=== PATIENT | female | born 1960 | race Caucasian/White ===

== ENCOUNTER → 2018-06-02 10:12 | Outpatient (CLI) | payer OTHER, SELFPAY ==
--- NOTE | 2018-06-02 10:15 | BI_ITS ---
MAMMOGRAPHY - BILATERAL SCREENING REASON FOR EXAM: Female, 57 years old. Routine annual screening examination. PERTINENT HISTORY: Non-contributory. TECHNIQUE: Digital bilateral breast ruba (3D mammographic acquisition) in the CC and MLO projections. 2-D mediolateral oblique (MLO) and craniocaudad (CC) views of both breasts were obtained. CAD: Full Field Digital Mammography with Computer Added Detection was performed. COMPARISON: Comparison is made with prior outside examination dated July 11, 2013. FINDINGS: Breast Composition: The breasts are heterogeneously dense, which may obscure small masses. There are no dominant masses or suspicious calcifications. Stable bilateral axillary lymph nodes. No other significant abnormalities are identified. There has been no significant change since the prior study. BI/SCREENING MAMM (CAD), BILAT IMPRESSION: Stable bilateral screening mammogram. Yearly follow-up mammogram recommended. (A) ASSESSMENT CATEGORY: BIRADS Category 2: Benign. A letter regarding these results will be sent to the patient by the facility within 30 days. Approximately 10% of breast cancers are not detected by mammography. A normal mammogram should not delay biopsy of a clinically suspicious abnormality. [id number] Electronically Signed: Jose Guadalupe Beach MD at 12:31 EST , Service support ,
== END ==
PROVIDERS: Family Provider Family Medicine; PCP Family Medicine; Referring Provider Obstetrics & Gynecology; Visit Provider Obstetrics & Gynecology
DX: Z12.31 Encounter for screening mammogram for malignant neoplasm of breast (principal)
CPT/HCPCS: 77063; 77067

== ENCOUNTER 2020-07-13 14:39 | Outpatient (RCR) | payer OTHER, SELFPAY | END 2020-09-25 23:59 | LOC: IMMUN 14:39 | PROVIDERS: PCP Family Medicine; Visit Provider Family Medicine | DX: Z23 Encounter for immunization (principal) | CPT/HCPCS: 0001A; 0002A; 91300 ==

== ENCOUNTER → 2021-04-03 | Outpatient (CLI) | payer OTHER, SELFPAY ==
[2021-04-09 13:19] LABS: HPV APTIMA, High Risk Negative (Negative)
== END | disposition home or self-care (01) ==
LOC: LABSPEC 15:26
PROVIDERS: PCP Family Medicine; Visit Provider Nurse Practitioner Women's Health
DX: Z78.0 Asymptomatic menopausal state (principal)
CPT/HCPCS: 87624; 88175; G0145

== ENCOUNTER → 2021-04-17 13:52 | Outpatient (CLI) | payer OTHER, SELFPAY ==
--- NOTE | 2021-04-17 13:54 | BI_ITS ---
MAMMOGRAPHY - BILATERAL SCREENING 3-D TOMOSYNTHESIS REASON FOR EXAM: Female, 60 years old. screening for breast cancer PERTINENT HISTORY: No significant family history. TECHNIQUE: 2-D mammograms and 3-D Tomosynthesis of the breast (s) were performed. CAD was performed. COMPARISON: 06/02/2018 FINDINGS: The breast composition is heterogeneously dense that can obscure small breast masses. Scattered benign calcifications are seen. No dense spiculated masses or suspicious microcalcifications are identified. No architectural distortion is identified. There is no skin thickening or retraction. There has been no significant change since the prior study. BI/SCRN MAMM (CAD)W/JAVIER BILAT IMPRESSION: No mammographic signs of malignancy. Routine yearly mammograms recommended. ASSESSMENT CATEGORY: BIRADS Category 1: Negative. A letter regarding these results will be sent to the patient by the facility within 30 days. FOLLOW UP RECOMMENDATION: Yearly follow up mammogram recommended. (A) Approximately 10% of breast cancers are not detected by mammography. A normal mammogram should not delay biopsy of a clinically suspicious abnormality. Electronically Signed: Lizandro Mccall MD at 14:44 EST Tel , Service support ,
== END ==
PROVIDERS: PCP Family Medicine; Referring Provider Nurse Practitioner Women's Health; Visit Provider Nurse Practitioner Women's Health
DX: Z12.31 Encounter for screening mammogram for malignant neoplasm of breast (principal)
CPT/HCPCS: 77063; 77067

== ENCOUNTER → 2021-08-19 | Outpatient (CLI) | payer OTHER, SELFPAY | END | disposition home or self-care (01) | LOC: LABSPEC 08-20 10:32 | PROVIDERS: PCP Family Medicine; Visit Provider Nurse Practitioner Women's Health | DX: N76.0 Acute vaginitis (principal) | CPT/HCPCS: 87070; 87205 ==

== ENCOUNTER → 2022-04-18 | Outpatient (CLI) | payer OTHER, SELFPAY ==
--- NOTE | 2022-04-18 10:52 | BI_ITS ---
MAMMOGRAPHY - BILATERAL SCREENING REASON FOR EXAM: Female, 61 years old. Routine annual screening examination. PERTINENT HISTORY: Non-contributory. TECHNIQUE: Digital bilateral breast javier (3D mammographic acquisition) in the CC and MLO projections. 2-D mediolateral oblique (MLO) and craniocaudad (CC) views of both breasts were obtained. CAD: Full Field Digital Mammography with Computer Added Detection was performed. COMPARISON: Comparison is made with prior study dated 04/17/2021 and 06/02/2018. FINDINGS: Breast Composition: The breasts are heterogeneously dense, which may obscure small masses. There are no dominant masses or suspicious calcifications. Stable small benign-appearing bilateral axillary lymph nodes. No other significant abnormalities are identified. There has been no significant change since the prior study. BI/SCRN MAMM (CAD)W/JAVIER BILAT IMPRESSION: Stable bilateral screening mammogram. Yearly follow-up mammogram recommended. (A) ASSESSMENT CATEGORY: BIRADS Category 2: Benign. A letter regarding these results will be sent to the patient by the facility within 30 days. Approximately 10% of breast cancers are not detected by mammography. A normal mammogram should not delay biopsy of a clinically suspicious abnormality. [id number] Electronically Signed: Jose Guadalupe Beach MD at 11:07 EST ,
== END | disposition home or self-care (01) ==
LOC: OPBI 10:51
PROVIDERS: PCP Family Medicine; Visit Provider Nurse Practitioner Women's Health
DX: Z12.31 Encounter for screening mammogram for malignant neoplasm of breast (principal)
CPT/HCPCS: 77063; 77067

== ENCOUNTER → 2024-10-26 | Outpatient (CLI) | payer OTHER, SELFPAY ==
--- NOTE | 2024-10-26 12:30 | BI_ITS ---
EXAM: SCRN MAMM (CAD)W/JAVIER BILAT DATE: 10/26/2024 CLINICAL HISTORY: F, Age 64 y/o , SCREENING FOR BREAST CANCER TECHNIQUE: SCRN MAMM (CAD)W/JAVIER BILAT COMPARISON: Prior exam(s) dated 03/22/2022, 04/17/2021, 06/02/2018. FINDINGS: TISSUE DENSITY: The breasts are heterogeneously dense, which may obscure small masses. The mammogram demonstrates that the patient has dense breasts. Supplemental screening with whole breast ultrasound or MRI may be considered for further evaluation. Bilateral Breast Mammographic Findings: Right breast: There is an asymmetry in the superior right breast at middle depth visualized on the MLO view. No significant masses, calcifications or other abnormalities are identified in the left breast. BI/SCRN MAMM (CAD)W/JAVIER BILAT IMPRESSION: The asymmetry in the superior right breast at middle depth requires further hallie luation. Recommend diagnostic mammogram of the right breast and ultrasound on the day of diagnostic if indicated. OVERALL FINAL ASSESSMENT BI-RADS 0: INCOMPLETE - NEED ADDITIONAL IMAGING EVALUATION. RECOMMENDATION: Additional Views obtained/call backs A letter with findings and recommendations will be mailed to the patient. Reading Location: [id number]
== END | disposition home or self-care (01) ==
PROVIDERS: PCP Family Medicine; Referring Provider Nurse Practitioner Women's Health; Visit Provider Nurse Practitioner Women's Health
DX: Z12.31 Encounter for screening mammogram for malignant neoplasm of breast (principal)
CPT/HCPCS: 77063; 77067

== ENCOUNTER → 2024-11-02 | Outpatient (CLI) | payer OTHER, SELFPAY ==
--- NOTE | 2024-11-02 08:55 | BI_ITS ---
PROCEDURE: BREAST LIMITED UNILATERAL; RT BRST UNILAT JAVIER ADD-ON; DIAG MAMM W/CAD, UNILAT 11/02/2024 REASON FOR EXAM: 64-year-old female presents for finding in the right breast seen on the examination of 10/26/2024. No family history of breast cancer. COMPARISON: 10/26/2024, 03/22/2022, 04/18/2021. TECHNIQUE: BREAST LIMITED UNILATERAL; RT BRST UNILAT JAVIER ADD-ON; DIAG MAMM W/CAD, UNILAT FINDINGS: MAMMOGRAM: TISSUE DENSITY: The breasts are heterogeneously dense, which may obscure small masses. Follow-up examination performed for the asymmetry in the right breast seen on examination of 10/26/2024. On the present examination, the asymmetry in the superior right breast at middle depth partially effaces. ULTRASOUND: Ultrasound performed of the superior right breast. There is a cyst cluster in the right breast at 11:30- 12 o'clock, 5 cm from the nipple measuring 0.7 x 0.7 x 0.4 cm. This is a probable correlate for the mammographic finding. BI/DIAG MAMM W/CAD, UNILAT IMPRESSION: Right breast cyst cluster is probably benign. Recommend short interval six-mon th follow-up diagnostic ultrasound of the right breast. BI-RADS 3: PROBABLY BENIGN. RECOMMENDATION: 6 Month Follow-up Reading Location: [id number]
--- NOTE | 2024-11-02 08:55 | BI_ITS ---
PROCEDURE: BREAST LIMITED UNILATERAL; RT BRST UNILAT JAVIER ADD-ON; DIAG MAMM W/CAD, UNILAT 11/02/2024 REASON FOR EXAM: 64-year-old female presents for finding in the right breast seen on the examination of 10/26/2024. No family history of breast cancer. COMPARISON: 10/26/2024, 03/22/2022, 04/18/2021. TECHNIQUE: BREAST LIMITED UNILATERAL; RT BRST UNILAT JAVIER ADD-ON; DIAG MAMM W/CAD, UNILAT FINDINGS: MAMMOGRAM: TISSUE DENSITY: The breasts are heterogeneously dense, which may obscure small masses. Follow-up examination performed for the asymmetry in the right breast seen on examination of 10/26/2024. On the present examination, the asymmetry in the superior right breast at middle depth partially effaces. ULTRASOUND: Ultrasound performed of the superior right breast. There is a cyst cluster in the right breast at 11:30- 12 o'clock, 5 cm from the nipple measuring 0.7 x 0.7 x 0.4 cm. This is a probable correlate for the mammographic finding. BI/DIAG MAMM W/CAD, UNILAT IMPRESSION: Right breast cyst cluster is probably benign. Recommend short interval six-mon th follow-up diagnostic ultrasound of the right breast. BI-RADS 3: PROBABLY BENIGN. RECOMMENDATION: 6 Month Follow-up Reading Location: [id number]
--- NOTE | 2024-11-02 08:55 | BI_ITS ---
PROCEDURE: BREAST LIMITED UNILATERAL; RT BRST UNILAT JAVIER ADD-ON; DIAG MAMM W/CAD, UNILAT 11/02/2024 REASON FOR EXAM: 64-year-old female presents for finding in the right breast seen on the examination of 10/26/2024. No family history of breast cancer. COMPARISON: 10/26/2024, 03/22/2022, 04/18/2021. TECHNIQUE: BREAST LIMITED UNILATERAL; RT BRST UNILAT JAVIER ADD-ON; DIAG MAMM W/CAD, UNILAT FINDINGS: MAMMOGRAM: TISSUE DENSITY: The breasts are heterogeneously dense, which may obscure small masses. Follow-up examination performed for the asymmetry in the right breast seen on examination of 10/26/2024. On the present examination, the asymmetry in the superior right breast at middle depth partially effaces. ULTRASOUND: Ultrasound performed of the superior right breast. There is a cyst cluster in the right breast at 11:30- 12 o'clock, 5 cm from the nipple measuring 0.7 x 0.7 x 0.4 cm. This is a probable correlate for the mammographic finding. BI/Rt Brst Unilat Javier Add-On IMPRESSION: Right breast cyst cluster is probably benign. Recommend short interval six-mon th follow-up diagnostic ultrasound of the right breast. BI-RADS 3: PROBABLY BENIGN. RECOMMENDATION: 6 Month Follow-up Reading Location: [id number]
--- NOTE | 2024-11-02 08:55 | BI_ITS ---
PROCEDURE: BREAST LIMITED UNILATERAL; RT BRST UNILAT JAVIER ADD-ON; DIAG MAMM W/CAD, UNILAT 11/02/2024 REASON FOR EXAM: 64-year-old female presents for finding in the right breast seen on the examination of 10/26/2024. No family history of breast cancer. COMPARISON: 10/26/2024, 03/22/2022, 04/18/2021. TECHNIQUE: BREAST LIMITED UNILATERAL; RT BRST UNILAT JAVIER ADD-ON; DIAG MAMM W/CAD, UNILAT FINDINGS: MAMMOGRAM: TISSUE DENSITY: The breasts are heterogeneously dense, which may obscure small masses. Follow-up examination performed for the asymmetry in the right breast seen on examination of 10/26/2024. On the present examination, the asymmetry in the superior right breast at middle depth partially effaces. ULTRASOUND: Ultrasound performed of the superior right breast. There is a cyst cluster in the right breast at 11:30- 12 o'clock, 5 cm from the nipple measuring 0.7 x 0.7 x 0.4 cm. This is a probable correlate for the mammographic finding. BI/Rt Brst Unilat Javier Add-On IMPRESSION: Right breast cyst cluster is probably benign. Recommend short interval six-mon th follow-up diagnostic ultrasound of the right breast. BI-RADS 3: PROBABLY BENIGN. RECOMMENDATION: 6 Month Follow-up Reading Location: [id number]
--- OUTSIDE RECORDS SUMMARY | 2024-11-02 10:01 | XMS RPT_ITS | CCD ---
Author Organization [facility] Care Team Providers Care Assistant Merchandiser Name Role Phone Dossi Treasure THORPE Unavailable Dr. Caridad Edmondson Primary Care Provider [phone] Dr. Caridad Edmondson Referring Provider [phone] Donnellson CEO AND CO FOUNDER, CEO AND [employer] FOUNDER-C Cehl Attending Provider Caridad Edmondson DO Primary Care Provider [phone] Caridad Edmondson DO Primary Care Provider Dr. Caridad Edmondson Primary Care Provider Dr. Caridad Edmondson Referring Provider Donnellson CEO AND CO FOUNDER, CEO AND [employer] FOUNDER-C Chel Attending Provider [phone] Caridad Edmondson DO Primary Care Provider [phone] JUAN ROMERO Attending Unavailable CARIDAD EDMONDSON Primary Care Unavailable Dr. Caridad Edmondson DO Primary Care Provider Dr. Caridad Edmondson DO Referring Provider Donnellson CEO AND [employer] FOUNDER-C, Chel Attending Provider [phone] Donnellson CEO AND CO FOUNDER, Chel Attending Unavailable Malarielle Caridad Referring Unavailable Malarielle Caridad Primary Care Unavailable Erick CEO AND CO FOUNDER, Chel Referring Unavailable Erick CEO AND CO FOUNDER, Chel Attending Unavailable Malys, Caridad Primary Care Unavailable Donnellson CEO AND CO FOUNDER, Chel Attending Unavailable Malarielle, Caridad Primary Care Unavailable Donnellson CEO AND CO FOUNDER, Chel Referring Unavailable Erick CEO AND CO FOUNDER-C, Chel Referring Provider Allergies Allergy Classification Reported Allergen(s) Allergy Type Date of Onset Reaction(s) Facility (6 sources) Dust; Translations: [DUST] allergy to substance [facility] Work Phone: Medications Current Medications Medication Drug Class(es) Dates Sig (Normalized) Sig (Original) atogepant (QULIPTA) 60 mg tablet (4 sources) Start: 11-17-2022 End: 02-15-2023 take 1 tablet by mouth once daily atogepant (QULIPTA) 60 mg tablet Take 1 tablet (60 mg) by mouth once daily. 30 tablet 2 11/17/2022 02/15/2023 Active Start: 09-10-2022 End: 11-16-2022 take 1 tablet by mouth once daily atogepant (QULIPTA) 60 mg tablet Take 1 tablet (60 mg) by mouth once daily. 30 tablet 2 09/10/2022 11/16/2022 Discontinued Start: 09-10-2022 End: 12-09-2022 take 1 tablet by mouth once daily atogepant (QULIPTA) 60 mg tablet Take 1 tablet (60 mg) by mouth once daily. 30 tablet 2 09/10/2022 12/09/2022 Active Comment on above: Take 1 tablet (60 mg ) by mouth once daily. eletripton (4 sources) Start: 04-03-2021 eletripton Active PO April 03, 2021 2:05pm Start: 04-03-2021 eletripton Act pamela PO 0 April 03, 2021 1:00am Start: 04-03-2021 eletripton Act pamela PO April 03, 2021 1:00am Start: 04-03-2021 eletripton Act pamela PO April 03, 2021 12:00am Iodine (2 sources) Start: 10-13-2024 Iodine (Gaurav dumas (Iodine)) 151 mcg capsule Active ug PO October 13, 2024 12:00am Lactobacillus Combination No.9 (Adult 50 Plus Probiotic) 4 billion cell capsule (2 sources) Start: 10-13-2024 take 4 capsules by mouth once daily Lactobacillus Combination No.9 (Adult 50 Plus Probiotic) 4 billion cell capsule Active 4000 NMA PO daily October 13, 2024 12:00am administer with a meal progesterone 200 mg oral capsule (2 sources) Progesterone Start: 10-13-2024 take 1 capsule by mouth at bedtime Progesterone Micronized 200 mg capsule Active 200 mg PO AT BEDTIME October 13, 2024 12:00am Completed/Discontinued Medications Medication Drug Class(es) Dates Sig (Normalized) Sig (Original) ASPIRIN-ACETAMINO PHEN-CAFFEINE (12 sources) Nonsteroidal Anti-inflammatory Drug, Central Nervous System Stimulant, Methylxanthine Start: 07-17-2014 take 2 tablets by mouth once daily for headache EXCEDRIN MIGRAINE 250-250-65 MG TABS Two tablets by mouth daily for headaches ASPIRIN-ACETAMINO PHEN-CAFFEINE [id number] Annika Christie LPN Start: 07-17-2014 take 2 tablets by mo ut once daily for headache EXCEDRIN MIGRAINE 250-250-65 MG TABS Two tablets by mouth daily for headaches [id number] Annika Christie LPN Start: 07-17-2014 take 2 tablets by mo ut once daily for headache EXCEDRIN MIGRAINE 250-250-65 MG TABS Two tablets by mouth daily for headaches [id number] Caridad Edmondson DO amoxicillin 875 mg / clavulanate 125 mg oral tablet (12 sources) Penicillin-class Antibacterial Start: 07-28-2014 End: 03-13-2015 take 1 tablet by mouth twice daily AMOXICILLIN-POT CLAVULANATE 875-125 MG TABS 1 po Twice daily x 7 days AMOXICILLIN-POT CLAVULANATE [id number] Caridad Edmondson DO atenolol 25 mg oral tablet (12 sources) beta-Adrenergic Leno Start: 06-20-2015 End: 09-23-2016 take 1 tablet by mouth once daily at bedtime ATENOLOL 25 MG TABS 1 po daily at bedtime ATENOLOL [id number] Treasure Mendoza DC 24 hr buPROPion hydrochloride 300 mg extended release oral tablet (9 sources) Aminoketone Start: 04-03-2021 End: 10-13-2024 take 1 tablet by mouth once daily in the morning Bupropion Hcl 300 mg tablet extended release 24 hr Discontinued 300 mg PO EVERY MORNING April 03, 2021 1:00am October 13, 2024 3:16pm Start: 05-02-2019 buPROPion XL ( WELLBUTRIN XL) 300 mg 24 hr tablet codeine phosphate 2 mg/ml / promethazine hydrochloride 1.25 mg/ml oral solution (12 sources) Opioid Agonist, Phenothiazine Start: 07-28-2014 End: 03-13-2015 take 5 mL by mouth every six hours as needed for cough PROMETHAZINE-CODEINE 6.25-10 MG/5ML SYRP 5 ml po every 6 hours as needed for cough PROMETHAZINE-CODEINE [id number] Caridad Edmondson DO eletriptan 40 mg oral tablet (7 sources) Serotonin-1b and Serotonin-1d Receptor Agonist Start: 09-10-2022 End: 11-12-2022 eletriptan (RELPAX) 40 mg tablet Take 1 tablet by mouth as needed (for migraine headache). take 1 at onset of migraine, may repeat in 2 hours if necessary. No more than 2 pills in 24 hours or 2 days/week 9 tablet 11 11/12/2022 Active Start: 07-17-2020 End: 08-29-2021 eletriptan (RELPAX) 40 mg ta blet Take 1 tablet by mouth as needed (for migraine headache). take 1 at onset of migraine, may repeat in 2 hours if necessary. No more than 2 pills in 24 hours or 2 days/week 9 tablet 11 08/29/2021 Active Comment on above: Take 1 tablet by buddy as needed (for migraine headache). take 1 at onset of migraine, may repeat in 2 hours if necessary. No more than 2 pills in 24 hours or 2 days/week estradiol 0.01 mg vaginal insert (11 sources) Estrogen Start: 04-09-2022 End: 10-13-2024 Estradiol (Yuvafem) 10 mcg tablet Discontinued 10 ug VAGINAL .COMPLEX 28 14 April 09, 2022 1:00am October 13, 2024 3:16pm 10 mcg vaginally daily X 2 weeks then 3 times per week; Start: 04-09-2022 Estradiol (Yuv afem) 10 mcg tablet Active 10 MCG VAGINAL .COMPLEX 28 April 09, 2022 12:00am 10 mcg vaginally daily X 2 weeks then 3 times per week; Start: 08-19-2021 End: 10-13-2024 Estradiol 0.01 % (0.1 mg/gra m) cream Discontinued 0 VAGINAL .COMPLEX August 19, 2021 12:00am October 13, 2024 8:10am small amount 2 times per week vaginal; Start: 08-19-2021 Estradiol Acti ve 0 VAGINAL .COMPLEX August 19, 2021 9:32am small amount 2 times per week vaginal; Start: 04-03-2021 End: 08-19-2021 Estradiol 0.01 % (0.1 mg/gra m) cream Discontinued 0 VAGINAL .COMPLEX 42.5 2 April 03, 2021 1:00am August 19, 2021 9:07am small amount as directed vaginal every other day X 4 weeks then twice a week; Start: 04-03-2021 End: 08-19-2021 Estradiol Discontinued 0 VAG INAL .COMPLEX 42.5 April 03, 2021 2:23pm August 19, 2021 9:07am small amount as directed vaginal every other day X 4 weeks then twice a week; fluticasone propionate 0.05 mg/actuat metered dose nasal spray (12 sources) Corticosteroid Start: 07-28-2014 End: 03-13-2015 take 2 spray(s) nasal route once daily FLUTICASONE PROPIONATE 50 MCG/ACT SUSP 2 sprays each nostril daily FLUTICASONE PROPIONATE [id number] Caridad Edmondson DO 1.5 ml fremanezumab-vfrm 150 mg/ml auto-injector (4 sources) Start: 04-03-2021 End: 08-19-2021 Fremanezumab-Vfrm (Ajovy Autoinjector) 225 mg/1.5 mL auto-injector Discontinued 225 mg SC EVERY MONTH April 03, 2021 1:00am August 19, 2021 9:07am indomethacin 50 mg oral capsule (12 sources) Nonsteroidal Anti-inflammatory Drug Start: 05-30-2015 End: 06-20-2015 take 1 capsule by mouth three times daily INDOMETHACIN 50 MG CAPS 1 po TID INDOMETHACIN [id number] Caridad Edmondson DO lisinopril 10 mg oral tablet (18 sources) Angiotensin Converting Enzyme Inhibitor Start: 03-20-2015 End: 05-04-2015 take 1 tablet by mouth once daily LISINOPRIL 10 MG TABS 1 po daily LISINOPRIL [id number] Caridad Edmondson DO magnesium oxide 500 mg oral tablet (9 sources) Start: 04-03-2021 End: 10-13-2024 take 1 tablet by mouth once daily Magnesium Oxide 500 mg tablet Discontinued 500 mg PO DAILY April 03, 2021 1:00am October 13, 2024 3:16pm Start: 10-31-2020 take 1 tablet by buddy th once daily magnesium oxide (MAG-OX) 400 mg (241.3 mg magnesium) tablet Take 1 tablet by mouth once daily. 30 tablet 5 10/31/2020 Active Comment on above: Take 1 tablet by buddy th once daily. naproxen 500 mg oral tablet (14 sources) Nonsteroidal Anti-inflammatory Drug Start: 12-30-2021 naproxen (NAPROSYN) 500 mg tablet take 1 tablet by mouth two to three times a day if needed for headache - MAX OF 10 DAYS PER MONTH 30 tablet 1 12/30/2021 Active Start: 10-31-2021 End: 12-30-2021 naproxen (NAPROSYN) 500 mg t ablet Take one(1) tablet two(2) times daily or TID prn headache MAx 10 days a month 30 tablet 1 10/31/2021 12/30/2021 Discontinued Start: 04-03-2021 End: 10-13-2024 take 1 tablet by mouth twice daily as needed Naproxen 500 mg tablet Discontinued 500 mg PO TWICE A DAY as needed August 19, 2021 9:07am October 13, 2024 3:16pm Start: 10-31-2020 naproxen (NAPR OSYN) 500 mg tablet Take one(1) tablet two(2) times daily or TID prn headache MAx 10 days a month 30 tablet 11 10/31/2020 Active Comment on above: Take one(1) tablet t wo(2) times daily or TID prn headache MAx 10 days a month take 1 tablet by buddy th two to three times a day if needed for headache - MAX OF 10 DAYS PER MONTH phentermine hydrochloride 30 mg oral capsule (12 sources) Sympathomimetic Amine Anorectic Start: 05-30-19 16 End: 09-24-19 17 take 1 capsule by mouth once daily PHENTERMINE HCL 30 MG CAPS 1 po daily PHENTERMINE HCL [id number] Treasure Mendoza DC 24 hr propranolol hydrochloride 80 mg extended release oral capsule (12 sources) beta-Adrenergic Leno Start: 05-04-19 16 End: 06-20-19 16 take 1 capsule by mouth once daily PROPRANOLOL HCL ER 80 MG [id number] 1 po daily PROPRANOLOL HCL [id number] Caridad Edmondson DO riboflavin 400 mg oral tablet (9 sources) Start: 04-03-20 End: 10-14-19 25 take 1 tablet by mouth once daily Riboflavin (Vitamin B2) 400 mg tablet Discontinued 400 mg PO DAILY April 03, 2021 1:00am October 13, 2024 3:16pm Start: 01-03-2020 take 2 tablets by mo uth twice daily riboflavin, vitamin B2, (VITAMIN B-2) 100 mg tab Take 2 tablets by mouth twice daily. 0 01/03/2020 Active Comment on above: Take 2 tablets by mo uth twice daily. TENS unit and electrodes (CEFALY) cmpk (5 sources) Start: 01-03-2020 TENS unit and electrodes (CEFALY) cmpk 1 Package as needed (for migraine headache). 1 Device 0 01/03/2020 Active Comment on above: 1 Package as needed (for migraine headache). topiramate 100 mg oral tablet (20 sources) Anti-epileptic Agent Start: 04-03-2021 End: 10-13-2024 take 1 tablet by mouth once daily Topiramate 100 mg tablet Discontinued 100 mg PO DAILY April 03, 2021 1:00am October 13, 2024 3:16pm Start: 07-17-2014 take 1 tablet by buddy once daily at bedtime TOPIRAMATE 50 MG TABS 1 po QHS TOPIRAMATE [id number] Caridad Edmondson DO Start: 07-17-2014 End: 03-13-2015 take 1 tablet by mouth once daily at bedtime TOPIRAMATE 100 MG TABS 1 po at QHS TOPIRAMATE [id number] Caridad Edmondson DO Comment on above: Take 1 tablet by buddy th daily at bedtime. ubidecarenone 75 mg oral capsule (9 sources) Start: 04-03-2021 End: 10-13-2024 Coenzyme Q10 (Ultra Coq10) 75 mg capsule Discontinued 75 mg PO DAILY April 03, 2021 1:00am October 13, 2024 3:16pm Start: 01-03-2020 take 1 capsule by mo ut twice daily Coenzyme Q10 150 mg cap Take 1 capsule by mouth twice daily. 0 01/03/2020 Active Comment on above: Take 1 capsule by mo uth twice daily. 24 hr divalproex sodium 500 mg extended release oral tablet (3 sources) Mood Stabilizer, Anti-epileptic Agent Start: 09-10-2022 divalproex ER (DEPAKOTE ER) 500 mg 24 hr tablet take 2 PO at bedtime for 5 days then 1 PO at bedtime for 5 days, then stop. 15 tablet 0 09/10/2022 Active Comment on above: take 2 PO at bedtime for 5 days then 1 PO at bedtime for 5 days, then stop. verapamil hydrochloride 80 mg oral tablet (20 sources) Calcium Channel Leno Start: 08-08-2014 End: 05-04-2015 VERAPAMIL HCL 80 MG TABS 1 po at bedtime x 3 days then BID VERAPAMIL HCL [id number] Caridad Edmondson DO Start: 08-08-2014 take 1 tablet by buddy th twice daily VERAPAMIL HCL 80 MG TABS 1 po BID VERAPAMIL HCL [id number] Caridad Edmondson DO Problems Active Problems Problem Classification Problem Date Documented Date Episodic/Chronic Headache, including migraine (11 sources) Chronic headache disorder; Translations: [Headache] Onset: 07-17-2014 07-17-2014 Episodic Headache; including migraine (1 source) Migraine without aura, not refractory ; Translations: [Migraine without aura, not intractable, without status migrainosus] Chronic Menopausal disorders (11 sources) Atrophic vaginitis; Translations: [Postmenopausal atrophic vaginitis] Onset: 07-07-2012 Chronic Comment on above: yuvafem Menopausal disorders (2 sources) Drug therapy finding; Translations: [Hormone replacement therapy] 10-13-2024 Episodic Comment on above: estrogen/testosteron e pellets and prometrium daily per [facility] Mood disorders (5 sources) Depressive disorder; Translations: [Depression] Onset: 12-13-2013 12-13-2013 Chronic Nutritional deficiencies (5 sources) Vitamin D deficiency; Translations: [Vitamin D deficiency, unspecified] Onset: 05-25-2013 05-25-2013 Chronic Other nutritional; endocrine; and metabolic disorders (6 sources) Obesity; Translations: [Obesity, unspecified] Onset: 06-20-2015 2015 Chronic Other screening for suspected conditions (not mental disorders or infectious disease) (4 sources) Other abnormal and inconclusive findings on diagnostic imaging of breast; Translations: [Encounter for screening mammogram for malignant neoplasm of breast] Onset: 10-13-2024 Episodic Spondylosis; intervertebral disc disorders; other back problems (11 sources) Other cervical disc displacement, unspecified cervical region; Translations: [Displacement of intervertebral disc, site unspecified, without myelopathy] Onset: 05-24-2013 03-13-2015 Chronic Unclassified (12 sources) Obstructive sleep apnea syndrome; Translations: [Obstructive sleep apnea (adult) (pediatric)] Onset: 10-29-2015 10-29-2015 Chronic Unclassified (5 sources) Adult health examination ; Translations: [Encounter for general adult medical examination without abnormal findings] Onset: 07-17-2014 07-17-2014 Past or Other Problems Problem Classification Problem Date Documented Da te Episodic/Chronic Mood disorders (5 sources) Mood swings; Translations: [Emotional lability] Onset: 06-15-2013 06-15-2013 Episodic Other bone disease and musculoskeletal deformities (12 sources) Segmental and somatic dysfunction; Translations: [Segmental and somatic dysfunction of cervical region] Onset: 09-23-2016 09-23-2016 Episodic Other circulatory disease (6 sources) Elevated blood-pressure reading without diagnosis of hypertension; Translations: [Elevated blood-pressure reading, without diagnosis of hypertension] Onset: 03-13-2015 03-13-2015 Episodic Other upper respiratory infections (12 sources) Acute sinusitis; Translations: [Acute sinusitis, unspecified] Onset: 07-28-2014 Resolved: 03-13-2015 08-13-2014 Episodic Results Test Name Value Interpretation Reference Range Facility Breast imaging reportOrdered By: Sejal Drummond on 10-26-2024 Study report [facility] Imaging Services [address] [place] [address] SCRN MAMM (CAD)W/JAVIER BILAT MR#: [id number] Acct: [id number] Name: VICKI KENNEY Rep #: [id number] : 1960 F 64 From: Lanette Drummond MD PCP: Dr. Caridad Edmondson DO Status: REG CLI Study:SCRN MAMM (CAD)W/JAVIER BILAT Date of Exa m: 10/26/24 Exam# [id number] Ordering Dr: Chel Suarez CEO AND CO FOUNDER CEO AND [employer] FOUNDER-C EXAM: SCRN MAMM (CAD)W/JAVIER BILAT DATE: 10/26/2024 CLINICAL HISTORY: F, Age 64 y/o , SCREENING FOR BREAST CANCER TECHNIQUE: SCRN MAMM (CAD)W/JAVIER BILAT COMPARISON: Prior exam(s) dated 03/22/2022, 04/17/2021, 06/02/2018. FINDINGS: TISSUE DENSITY: The breasts are heterogeneously dense, which may obscure small masses. The mammogram demonstrates that the patient has dense breasts. Supplemental screening with whole breast ultrasound or MRI may be considered for further evaluation. Bilateral Breast Mammographic Findings: Right breast: There is an asymmetry in the superior right breast at middle depth visualized onthe MLO view. No significant masses, calcifications or other abnormalities are identified in the left breast. BI/SCRN MAMM (CAD)W/JAVIER BILAT IMPRESSION: The asymmetry in the superior right breast at middle depth requires further evaluation. Recommend diagnostic mammogram of the right breast and ultrasound on the day of diagnostic if indicated. OVERALL FINAL ASSESSMENT BI-RADS 0: INCOMPLETE - NEED ADDITIONAL IMAGING EVALUATION. RECOMMENDATION: Additional Views obtained/call backs A letter with findings and recommendations will be mailed to the patient. Reading Location: [id number] CC: CEO AND CO FOUNDER-C Chel Suarez; Dr. Caridad Edmondson DO ~ Blueprinting And Photocopy Supervisor: Signed SCRN MAMM (CAD)W/JAVIER BILATo n 10-26-2024 SCRN MAMM (CAD)W/JAVIER BILAT [facility] Imaging Services [address] [place] [address] SCRN MAMM (CAD)W/JAVIER BILAT MR#: [id number] Acct: [id number] Name: VICKI KENNEY Rep #: [id number] : 1960 F 64 From: Sejal Drummond MD PCP: Dr. Caridad Edmondson DO Status: REG CLI Study: SCRN MAMM (CAD)W/JAVIER BILAT Date of Exam: 01/12 Exam# [id number] Ordering Dr: Chel Suarez NP CEO AND CO FOUNDER -C EXAM: SCRN MAMM (CAD)W/JAVIER BILAT DATE: 10/26/2024 CLINICAL HISTORY: F, Age 64 y/o , SCREENING FOR BREAST CANCER TECHNIQUE: SCRN MAMM (CAD)W/JAVIER BILAT COMPARISON: Prior exam(s) dated 03/22/2022, 04/17/2021, 06/02/2018. FINDINGS: TISSUE DENSITY: The breasts are heterogeneously dense, which may obscure small masses. The mammogram demonstrates that the patient has dense breasts. Supplemental screening with whole breast ultrasound or MRI may be considered for further evaluation. Bilateral Breast Mammographic Findings: Right breast: There is an asymmetry in the superior right breast at middle depth visualized on the MLO view. No significant masses, calcifications or other abnormalities are identified in the left breast. BI/SCRN MAMM (CAD)W/JAVIER BILAT IMPRESSION: The asymmetry in the superior right breast at middle depth requires further evaluation. Recommend diagnostic mammogram of the right breast and ultrasound on the day of diagnostic if indicated. OVERALL FINAL ASSESSMENT BI-RADS 0: INCOMPLETE - NEED ADDITIONAL IMAGING EVALUATION. RECOMMENDATION: Additional Views obtained/call backs A letter with findings and recommendations will be mailed to the patient. Reading Location: [id number] CC: CEO AND CO FOUNDER-C Chel Suarez; Dr. Caridad Edmondson DO Blueprinting And Photocopy Supervisor: Signed Normal [facility] Visit Reporton 10-13-2024 [facility] Visit Report [facility] [address] [place] [address], [address] [place] [address] OFFICE VISIT Date of Service: 10/13/24 MR#: [id number] Acct: [id number] Name: VICKI KENNEY Rep #: [id number] : 1960 Provider: LIZ vu Age/Sex: 64/F Location: [facility] Status: Signed Intake Vital Signs 04/09/22 09:35 10/13/24 15:09 10/13/24 15:18 Height 5 ft 3 in 5 ft 3 in 5 ft 3 in Weight: 168 lb 6 oz BMI 29.8 BP 136/84 H 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) Chief Complaint: Annual Hop Weigher Required: No Is patient in pain?: No Allergies No Known Allergies Allergy (Unverified 10/13/24 15:09) Medications ???Medication ???Instructions ???Recorded ???Confirmed ???Type eletripton PO 04/03/21 10/13/24 History iodine 151 mcg capsule mcg PO 10/13/24 10/13/24 History (Bladderwrack (iodine)) lactobacillus combination no.9 4 4,000 mmu cells PO QDAY 10/13/24 0 10/13/24 History billion cell capsule (Adult 50 Plus Probiotic) progesterone micronized 200 mg 200 mg PO QHS 10/13/24 10/13/24 Hi story capsule Is last menstrual period known: No Post menopausal: Yes Patient : No : No PFSH Medical History Kidney stone Surgical History S/P History of neck surgery History of back surgery Family History Mother Colon cancer Pancreatic cancer Lymphoma Cervical cancer Father Myocardial infarction, Onset Age: 47 Hypertension Social History household members: spouse and children current occupational status: employed 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 Date Name GA/Weeks Outcome Route Bth Weight Infant Gen [facility] Jose 1996 Unknown Chely 1999 HPI Encounter for routine gynecological examination Details: VICKI KENNEY is a 64 year old who presents for annual exam. She has been on estrogen/testosteron e pellets plus prometrium 200mg QHS X 2 years per [facility] and is very happy with this. States she has had no vaginal spotting or bleeding. She no longer has hot flashes, sleeps well, libido is improved and no longer with vaginal dryness. Last PAP: 2020 History of abnormal PAP: no Last mammogram: 2021 History of abnormal mammogram: no Colon cancer screenin Other preventative health care screenings: Dbeo Female Reproductive History Questions: sexually active: Yes Menopausal Treatment: Yes HRT ROS Const Constitutional: Denies fatigue, weight gain or weight loss Cardio Card: Denies chest pain Resp Resp: Denies cough or dyspnea on exertion GI GI: Denies abdominal pain, bloating, change in stool character, constipation or vomiting : Reports as per HPI; Denies difficulty voiding, pelvic pain, urinary frequency, urinary incontinence, urinary urgency, vaginal discharge or vaginal pruritus Exam Const General: cooperative, healthy appearing, no acute distress and well developed Orientation: alert, oriented to person and oriented to place [facility] Head: normal to inspection Neck Neck: normal visual inspection Thyroid: thyroid normal Lymphatic: no lymphadenopathy noted Chest Breast inspection: normal inspection of the breasts and normal inspection of the axillae Breast palpation: normal palpation of the breasts, normal palpation of the axillae and no axillary lymphadenopathy Resp Effort Inspection: normal respiratory effort GI Palpation: soft, no masses and nontender Rectal Exam: deferred External Female Exam: normal external appearance and normal appearance of the urethra Urethra: normal appearance of the urethra and normal palpation Speculum Exam - Vagina: normal appearance of the vagina and normal vaginal discharge Speculum Exam - Cervix: normal appearance of the cervix Bimanual Exam- Vagina Uterus: normal bimanual exam, uterine size normal, uterine shape normal and non-tender Bimanual Exam- Adnexa, other: normal adnexae, no masses, normal and non-tender Pelvic Support: normal Neuro General: p (more content not included)... Normal CNCOon 10-06-2022 CNCO Letter Text Normal [place] [facility] [place] CNPNon 09-10-2022 CNPN Telephone ([id number]) VICKI KENNEY ([id number]) 1960 F Date Time Provider Department 09/10/22 JUAN ROMERO BANNERS2 During your visit today, we recorded the following information about you: Betsy Cuadra RN 09/10/2022 2:47 PM Signed PA questions for Qulipta completed via PA pool. MEIR Mora 09/18/2022 11:17 AM Signed Patient called in, states PA info was not received. Can be called over the phone. . [phone] Betsy Cuadra RN 09/18/2022 11:29 AM Signed PA questions re-submitted via PA pool. VICKI KENNEY - MMO - 9;? 9;? 9;@ (Caption Data) Covered: Retail, Mail Order Unknown: Specialty, Long-Term Care Group ID: [id number] Group name: ESTEVAN KENNEY BIN: [id number] PCN: : 1960 Legal sex: F Address: [address] [place] [id number] Betsy Cuadra RN 09/19/2022 7:40 AM Signed Attempted to submit PA on covermymeds. Vicki Kenney Bernal: [id number] Drug: Qulipta 60MG tablets Form: [employer] Electronic PA Form (2016 [facility]) Outcome PA has already submitted and is in process for this patient and drug.;CaseId:[id number];Status:In Process; Patient will need to reach out to her insurance for auth status MEIR Mora RN 09/19/2022 8:24 AM Signed Chart notes uploaded to prior auth portal Lindsey Nuno 10/02/2022 9:48 AM Signed Received message from patient regarding Qulipta PA Appeal information: Complete Appeal form on pg. 2 and 3 of Qulipta Denial attached to chart To: Clinical Appeals Department Would you be willing to appeal? Juan Romero APRN.CNP 10/03/2022 7:38 AM Signed Per chart review, patient previously reported nausea with headaches but denied migraine associated symptoms at her last visit. Please draft appeal letter. Juan Romero APRN.CNP October 03, 2022 7:38 AM Betsy Cuadra RN 10/06/2022 10:51 AM Signed Appeal written and faxed. If there is a form that needs to be completed as well, will send tomorrow. MEIR Mora RN 10/07/2022 9:51 AM Signed Form completed and fax with appeal letter. Betsy Cuadra RN Allergies As of Date: 09/10/2022 (No Known Allergies) Date Reviewed: 09/10/2022 Reviewed by: Juan Romero APRN.ISI - Fully Assessed Reason for Visit: Insurance Authorization [1693] Cmt: Qulipta 60 mg Prescriptions as of 10/07/2022 - divalproex ER (DEPAKOTE ER) 500 mg 24 hr tablet take 2 PO at bedtime for 5 days then 1 PO at bedtime for 5 days, then stop. - atogepant (QULIPTA) 60 mg tablet Take 1 tablet (60 mg) by mouth once daily. - eletriptan (RELPAX) 40 mg tablet Take 1 tablet by mouth as needed (for migraine headache). take 1 at onset of migraine, may repeat in 2 hours if necessary. No more than 2 pills in 24 hours or 2 days/week - naproxen (NAPROSYN) 500 mg tablet take 1 tablet by mouth two to three times a day if needed for headache - MAX OF 10 DAYS PER MONTH - magnesium oxide (MAG-OX) 400 mg (241.3 mg magnesium) tablet Take 1 tablet by mouth once daily. - riboflavin, vitamin B2, (VITAMIN B-2) 100 mg tab Take 2 tablets by mouth twice daily. - Coenzyme Q10 150 mg cap Take 1 capsule by mouth twice daily. - TENS unit and electrodes (CEFALY) cmpk 1 Package as needed (for migraine headache). - buPROPion XL (WELLBUTRIN XL) 300 mg 24 hr tablet Problem List As Of Date 09/10/2022 Noted Resolved HEADACHE [R51] Climacteric [N95.1] 07/07/2012 Herniated disc [LCZ5081] 05/24/2013 Vitamin D deficiency [E55.9] 05/25/2013 Mood swings [R45.86] 06/15/2013 Depression [F32.A] 12/13/2013 Encounter Status:Closed by BETSY CUADRA on 09/10/22 Normal [facility] Gram stain for investigation of transfusion reactionon 08-19-2021 Microscopic observation Gram stain Nom (Unsp spec) Work Phone: No Panel Informationon 08-19 POC Bacterial Vaginitis (Rapid) Negative Work Phone: Thin prep Papanicolaou smear with manual screeningon 08-19-2021 Cytopathology procedure, preparation of smear, genital source Normal genital danielito isolated Work Phone: Office Visit: Spine Visit- F ront facial headacheson 09-30-2016 Documentation of current medications (procedure) Done Invalid Interpretation Code [facility] Work Phone: Protein mass conc Done [facility] Work Phone: Office Visit: Spine Visit- F ront facial headacheson 09-24-2016 Documentation of current medications (procedure) Done Invalid Interpretation Code [facility] Work Phone: Office Visit: Spine Visit- N EWon 09-23-2016 Documentation of current medications (procedure) Done Invalid Interpretation Code [facility] Work Phone: Tobacco smoking status NHIS Never Invalid Interpretation Code [facility] Work Phone: Tobacco smoking status NHIS Never smoker [facility] Work Phone: Tobacco use [facility] Never smoker Invalid Interpretation Code [facility] Work Phone: Vital Signs Date Time Vital Sign Value Performing Clinician Facility 10-13-2024 15:18-0400 Body height 160.[address] Caridad Edmondson DO Work Phone: 10-13-2024 15:09-0400 Body mass index (BMI) [Ratio] 29.8 kg/m2 Dr. Caridad Edmondson DO Work Phone: 10-13-2024 15:09-0400 Body weight 76.[address] Caridad Edmondson DO Work Phone: 10-13-2024 15:09-0400 Diastolic blood pressure 84 mm[Hg] Dr. Caridad Edmondson DO Work Phone: 10-13-2024 15:09-0400 Systolic blood pressure 136 mm[Hg] Dr. Caridad Edmondson DO Work Phone: 04-09-2022 09:35-0500 Body height 160.[address] Caridad Edmondson Work Phone: Work Phone: 04-09-2022 09:32-0500 Body mass index (BMI) [Ratio] 28.4 kg/m2 Dr. Caridad Edmondson Work Phone: Work Phone: 04-09-2022 09:32-0500 Body weight 72.[address] Caridad Edmondson Work Phone: Work Phone: 04-09-2022 09:32-0500 Diastolic blood pressure 84 mm[Hg] Dr. Caridad Edmondson Work Phone: Work Phone: 04-09-2022 09:32-0500 Systolic blood pressure 138 mm[Hg] Dr. Caridad Edmnodson Work Phone: Work Phone: 08-19-2021 09:08-0400 Body height 160.[address] Caridad Edmondson Work Phone: Work Phone: 08-19-2021 09:08-0400 Body mass index (BMI) [Ratio] 27.3 kg/m2 Dr. Caridad Edmondson Work Phone: Work Phone: 08-19-2021 09:08-0400 Body weight 69.[address] Caridad Edmondson Work Phone: Work Phone: 08-19-2021 09:08-0400 Diastolic blood pressure 100 mm[Hg] Dr. Caridad Edmondson Work Phone: Work Phone: 08-19-2021 09:08-0400 Systolic blood pressure 188 mm[Hg] Dr. Caridad Edmondson Work Phone: Work Phone: 09-23-2016 08:47-0400 BMI (Body Mass Index) 31.73 kg/m2 Treasure Mendoza DC [facility] Work Phone: 09-23-2016 08:47-0400 Pulse (Heart Rate) 89 /min Treasure Mendoza DC [facility] Work Phone: 09-23-2016 08:47-0400 Respiratory Rate 19 /min Treasure Mendoza DC [facility] Work Phone: 09-23-2016 08:47-0400 Weight 82.56 kg Treasure Mendoza DC [facility] Work Phone: 06-20-2015 10:35-0500 Body Temperature 97.9 [degF] Treasure Mendoza DC [facility] Work Phone: 06-20-2015 10:35-0500 BP Diastolic 90 mm[Hg] Treasure Mendoza DC [facility] Work Phone: 06-20-2015 10:35-0500 BP Systolic 148 mm[Hg] Treasure Mendoza DC [facility] Work Phone: 06-20-2015 10:35-0500 Pulse Oximetry 98 % Treasure Mendoza DC [facility] Work Phone: 03-26-2015 08:46-0500 BSA (Body Surface Area) 1.79 m2 Treasure Mendoza DC [facility] Work Phone: 07-17-2014 08:35-0400 Height 161.29 cm Treasure Mendoza DC [facility] Work Phone: Encounters Encounter Date Encounter Type Care Provider Facility Start: 11-07-2024 ambulatory Chel Suarez CEO AND [employer] Facil ity: Start: 10-26-2024 End: 10-26-2024 ambulatory Chel Suarez CEO AND [employer] FOUNDER Facility: Start: 10-26-2024 End: 10-26-2024 Patient encounter procedure Chel Suarez CEO AND [employer] FOUNDER-C -Outpatient [facility] Work Phone: Start: 10-13-2024 End: 10-13-2024 Patient encounter procedure Chel Suarez CEO AND [employer] FOUNDER-C -[facility] Work Phone: Start: 10-13-2024 End: 10-13-2024 Patient encounter status Chel Suarez CEO AND CO FOUNDER-C [facility] Start: 10-13-2024 End: 10-13-[address] Caridad Edmondson DO Work Phone: [facility] Work Phone: Start: 11-16-2022 Refill Juan Froims on MEDIA DEVELOPER.SN[employer]BOARDER Work Phone: Neurology Comment on above: Refill Request Start: 11-12-2022 Refill Juan Froims on MEDIA DEVELOPER.[employer]ER Work Phone: Neurology Comment on above: Refill Request Start: 09-18-2022 ambulatory Juan Shaw on MEDIA DEVELOPER.SNOW[employer]ARDER Work Phone: Neurology Comment on above: Samantha HIGH Start: 09-10-2022 End: 09-10-2022 ambulatory JUAN ROMERO Facility:[facility] Start: 04-18-2022 End: 04-18-[address] Caridad Edmondson Work Phone: Work Phone: Start: 04-18-2022 End: 04-18-[address] Caridad Edmondson Work Phone: -Outpatient Breast Imaging Start: 04-09-2022 End: 04-09-[address] Caridad Edmondson Work Phone: [facility] Start: 12-29-2021 Refill Afia allen PA-C Work Phone: Neurology Comment on above: Refill Request Start: 08-29-2021 End: 08-29-2021 ambulatory Juan Romero MEDIA DEVELOPER.SNOWBOARDER Work Phone: Neurology Comment on above: Migraine without aur a and without status migrainosus, not intractable (Primary Dx) Start: 08-29-2021 End: 08-29-2021 Telemedicine consultation with patient Juan Romero MEDIA DEVELOPER.SNOWBOARDER Work Phone: [facility] Start: 08-19-2021 End: 08-19-[address] Caridad Edmondson Work Phone: -Laboratory, Specimen Start: 08-19-2021 End: 08-19-[address] Caridad Edmondson Work Phone: [facility] Procedures Date Procedure Procedure Detail Performing Clinician Start: 10-26-2024 Screening mammography Samson Edmondson DO Work Phone: Start: 04-18-2022 Screening mammography Samson Edmondson Work Phone: Start: 08-19-2021 Cytopathology proced ure, preparation of smear, genital source Dr. Caridad Edmondson Work Phone: Start: 08-19-2021 Investigation of transfusion reaction Dr. Caridad Edmondson Work Phone: Start: 09-30-2016 End: 09-30-2016 Chiropract manj 1-2 regions Treasure Frausto Giancarlo i DC Work Phone: Start: 09-24-2016 End: 09-24-2016 Chiropract manj 1-2 regions Treasure Frausto Giancarlo i DC Work Phone: Start: 09-23-2016 End: 09-23-2016 X-ray exam of neck spine Treasure Mendoza D C Work Phone: Start: 07-17-2014 Adult health examination Well adult exam Treasure Mendoza DC Start: 07-11-2013 Mammography Juan jones APRN.SNOWBOARDER Work Phone: Start: 01-18-2013 Colonoscopy Juan jones MEDIA DEVELOPER.[employer] Work Phone: Plan of Treatment Date Care Activity Detail Author Start: 07-02-2024 DIABETES SCREEN DIABETES SCREEN [facility] Start: 12-19-2022 Influenza vaccination INFLUENZA (#1) [facility] Start: 12-19-2021 Influenza vaccination [facility] Start: 08-20-2021 COVID-19 VACCINE (4 - Booster for Pfizer series) COVID-19 VACCINE (4 - Booster for Pfizer series) [facility] Start: 06-17-2021 COVID-19 VACCINE (4 - Booster for Pfizer series) COVID-19 VACCINE (4 - Booster for Pfizer series) [facility] Start: 06-17-2021 COVID-19 VACCINE (4 - Pfizer series) COVID-19 VACCINE (4 - Pfizer series) [facility] Start: 05-24-2018 LIPID SCREEN LIPID SCREEN [facility] Start: 10-07-2016 End: 10-07-2016 Appointment Appointment [facility] Work Phone: Start: 10-02-2016 End: 10-02-2016 Appointment Appointment [facility] Work Phone: Start: 09-30-2016 End: 09-30-2016 Appointment Appointment [facility] Work Phone: Start: 09-30-2016 End: 09-30-2016 Follow up Appt 2x/week Follow up Appt 2x/week [facility] Work Phone: Start: 09-24-2016 End: 09-24-2016 Appointment Appointment [facility] Work Phone: Start: 09-24-2016 End: 09-24-2016 Follow up Appt 2x/week Follow up Appt 2x/week [facility] Work Phone: Start: 09-23-2016 End: 09-23-2016 Appointment Appointment [facility] Work Phone: Start: 10-29-2015 End: 10-29-2015 Complete sleep workup (PSG,CPAP as indicated) & Follow up Complete sleep workup (PSG,CPAP as indicated) & Follow up [facility] Work Phone: Start: 09-20-2015 End: 09-26-2015 Neurology Referral Neurology Referral Davey Griffith, [address] [place] [address], [id number] [facility] Work Phone: Start: 09-10-2014 HPV TESTING HPV TESTING [facility] Start: 09-10-2014 PAP TESTING PAP TESTING [facility] Start: 07-11-2014 Mammography MAMMOGRAM [facility] Start: 01-18-2014 Colonoscopy COLONOSCOPY [facility] Start: 01-18-2014 COLORECTAL CANCER SCREENING COLORECTAL CANCER SCREENING [facility] Start: 07-05-2011 SHINGRIX VACCINE (1 of 2) SHINGRIX VACCINE (1 of 2) [facility] Start: 10-29-2009 Urine microalbumin profile DTAP,TDAP,TD (2 - Tdap) [facility] Start: 2006 COLOGUARD (FIT-DNA) COLOGUARD (FIT-DNA) [facility] Start: [address] COLONOGRAPHY [facility] Start: 2006 FECAL OCCULT BLOOD FECAL OCCULT BLOOD [facility] Start: 2006 SIGMOIDOSCOPY SIGMOIDOSCOPY [facility] Start: 07-05-1979 HEPATITIS C SCREENING HEPATITIS C SCREENING [facility] Start: 07-05-1979 HIV SCREENING HIV SCREENING [facility] MG Breast - bilatera l Screening Patient Education Verapamil%20(O ral)%20(Ca psule,%20Extended%20Rele ase,%20Tablet,%20Tablet, %20Extended%20Release) [facility] Work Phone: [facility] Immunizations Immunization Date Immunization Notes Care Provider Elizabeth galvan 05-18-2012 influenza virus vaccine, unspecified formulation Juan Froimson MEDIA DEVELOPER.[facility] Work Phone: [facility] 01-20-2009 influenza virus vaccine, live, attenuated, for intranasal use Juan Froimson MEDIA DEVELOPER.[facility] Work Phone: [facility] Work Phone: 01-19-2008 influenza virus vaccine, live, attenuated, for intranasal use Juan Froimson MEDIA DEVELOPER.[facility] Work Phone: [facility] Work Phone: 03-22-2003 influenza virus vaccine, unspecified formulation Juan Froimson MEDIA DEVELOPER.[facility] Work Phone: [facility] Work Phone: 11-06-1999 hepatitis A vaccine, unspecified formulation Juan Froimson MEDIA DEVELOPER.[employer] Work Phone: [facility] Work Phone: 10-30-1999 diphtheria and tetan us toxoids, adsorbed for pediatric use Juan Froimson MEDIA DEVELOPER.[facility] Work Phone: [facility] Work Phone: Payers Date Payer Category Payer Self-pay [id number] [id number] 2018 Unknown MMO MMO [employer] [id number] 2018-Present [phone] [address] [place] [address] O [id number] 2018 Unknown [id number] 2011 Unknown [id number] Unknown [id number] Unknown [id number] Unknown [id number] Social History Date Type Detail Facility Start: 08-19-2021 End: 04-09-2022 Tobacco smoking status VAIS Unknown if ever smoked Work Phone: Start: 1960 Sex Assigned At Female [facility] Start: 10-10-2010 End: 04-09-2022 Tobacco smoking status VAIS Never smoked tobacco [facility] Work Phone: Start: 08-29-2021 End: 09-10-2022 Alcohol intake Current drinker of alcohol (finding) [facility] Start: 10-10-2010 Tobacco use and exposure Smokeless tobacco non-user [facility] Work Phone: Start: 09-09-2022 End: 09-10-2022 History of Social function [facility] Start: 09-09-2022 End: 09-10-2022 Tobacco use panel [facility] Adult Depression Screening Assessment 0 [facility] Start: 04-26-2019 Gender identity Identifies as female gender (finding) [facility] Start: 04-26-2019 Sexual orientation Heterosexual (fin ding) [facility] Clinical Notes 08-29-2021 to 06-26-2025 Note Date & Type Note Facility 10-13-2024 Evaluation note Diagnosis Onset Date Resolution Hormone replacement therapy acute October 13, 2024 3:07pm Encounter for routine gynecological examination noneactive October 13, 2024 3:07pm Work Phone: [phone]) 440-755507-31-2023 Miscellaneous Notes* Telephone Encounter - Juan Romero APRN.CNP - 11/17/2022 10:08 AM EDT The following approved medication requests have been transmitted electronically. Requested Prescriptions Signed Prescriptions Disp Refills atogepant (QULIPTA) 60 mg tablet 30 tablet 2 Sig: Take 1 tablet (60 mg) by mouth once daily. Authorizing Provider: JUAN ROMERO APRN.CNP * Telephone Encounter - Karuna Ambrose - 11/17/2022 9:33 AM EDT Physician: Steve Call from patient requesting refill. Please E-Scribe Last office visit 09/10/22 with Steve CHASE Next office visit 12/15/22 with Steve CHASE Patient Comment: I did not realize I only had 3 months on this prescription. I just picked up this months supply. I know it sometimes takes a LONG time to get it approved from my insurance so I wanted to make sure I got the renewal to you ELINA. Thank you Requested Prescriptions Pending Prescriptions Disp Refills atogepant (QULIPTA) 60 mg tablet 30 tablet 2 Sig: Take 1 tablet (60 mg) by mouth once daily. [facility] Miscellaneous Notes* Telephone Encounter - Juan Romero APRN.CNP - 11/12/2022 4:46 PM EDT The following approved medication requests have been transmitted electronically. Requested Prescriptions Signed Prescriptions Disp Refills eletriptan (RELPAX) 40 mg tablet 9 tablet 11 Sig: Take 1 tablet by mouth as needed (for migraine headache). take 1 at onset of migraine, may repeat in 2 hours if necessary. No more than 2 pills in 24 hours or 2 days/week Authorizing Provider: JUAN ROMERO APRN.CNP * Telephone Encounter - Karuna Ambrose - 11/12/2022 4:41 PM EDT Physician: Steve Call from patient requesting refill. Please E-Scribe Last office visit 09/10/22 with Steve CHASE Next office visit 12/15/22 with Steve CHASE Patient requesting to switch pharmacies. Requested Prescriptions Pending Prescriptions Disp Refills eletriptan (RELPAX) 40 mg tablet 9 tablet 11 Sig: Take 1 tablet by mouth as needed (for migraine headache). take 1 at onset of migraine, may repeat in 2 hours if necessary. No more than 2 pills in 24 hours or 2 days/week [facility]acy [facility]: [facility]23 NoteHNO ID: [id number] Author: Juan Romero APRN.CNP Service: ? Author Type: Nurse Practitioner Type: Progress Notes Filed: 09/10/2022 1:40 PM Note Text: [facility] - Virtual Visit Last Visit: 08/29/2021, Juan Romero APRN.CNP Accompanied by: Self This visit was conducted as a virtual visit, with patient's permission, via zoom. It required patient-provider interaction for the medical decision making as documented below. Patient stated name and Patient location [place], [place] I have communicated my name and active licensure. The patient's identity and physical location were verified at the time of this visit. Either the patient or their legal field marketing representative has been informed of the risks and benefits of -- and alternatives to -- treatment through a remote evaluation and consents to proceed with the evaluation remotely. Primary Problem List: ACTIVE PROBLEM LIST Headache(784.0) Climacteric Herniated Disc Vitamin D Deficiency Mood Swings Depression Chief Complaint: Headache Impression and Plan from last visit: Vicki Kenney is a 61 year old year old female, with a history of new diagnosis of kidney stones, MARY, migraine and MOH presenting today with low frequency episodic migraines. Unfortunately she had a kidney stone in June and they were unable to catch the stone. We will stop topamax to eliminate potential for future stones. She is doing well and declined further prevention. We did talk about next steps. She will try her Cefaly as a prevention. She is not overusing rescue medications! Her neurological examination is essentially normal at this visit. ICHD-3 Diagnosis: Episodic Migraine PLAN: HEADACHE MANAGEMENT: (You are the primary guardian of your health and headache. Keep track of all medications: This includes the reason for use, side effects and benefits.) MEDICATION TREATMENT: Medications to Start Taking eletriptan (RELPAX) 40 mg tablet Take 1 tablet by mouth as needed (for migraine headache). take 1 at onset of migraine, may repeat in 2 hours if necessary. No more than 2 pills in 24 hours or 2 days/week - use Cefaly for Prevention - STOP Topamax - next steps: gabapentin vs. Nurtec vs. ubrelvy for prevention Interval Headache Hx: Presents today to discuss ongoing headache symptoms. Cefaly as working well for prevention/abortive up until 3 months ago. At that time she was treating her headaches about 3 - 4 times/month. Now her headaches have gradually started to get worse and return to chronic. Not sure that supplements are helping. August 07 - September 06: had 15 days needing eletriptan or excedrin migraine (most detailed). She does not think these were worse with stress/trigger - she is treating headaches up to 15 days a month. Has now not treated since the weekend since she is concerned for She is now back to waking up with a headache up to 28 days out of the month. Even if she does not have a headache she will wake up at night at the same time. She denies new health issues. Headache 1 Location: bridge of nose. Quality/Description: sharp and pressure Associated Symptoms: Photophobia: no Phonophobia: no Nausea: no Vomiting: no Other symptoms: none Worse with activity: yes Number of migraine headache days/month: 15 Migraine Severity: 7-8/10. Number of NON-migraine headache days/month: 13 Non-migraine Severity: dull. Total Number of headache days/month: 28 Duration of headaches with treatment: Duration of attacks with treatment: if treated at the onset will resolve quickly, if not lingers, but has a continuous daily headache. Current preventive treatment: supplements, relpax, cefaly device Current abortive treatment: eletriptan, excedrin Triggers: none Onset of headache to peak: abrupt Relieving factors: medication, cefaly, mountain dew Most common time of day for headache to begin: Most common time of day for headache to begin: continue to wake her up in the middle of the night. Days missed from work or school in the last month: 0 days Headache status since the last visit: worse Issues and questions to be addressed: - patient update Medications tried: Prior Therapies Duration of Use Dose Reason for Discontinuation Anti-Convulsant Divalproex sodium (Depakote) Gabapentin (Neurontin) Topiramate (Topamax, Trokendi XL, Qudexy) Zonisamide (Zonegram) Anti-Depressant and Antipsychotic Amitriptyline (Elavil) Bupropion (Wellbutrin) Citalopram (Celexa) Doxepin (Sinequan) Duloxetine (Cymbalta) Escitalopram (Lexapro) Nortriptyline (Pamelor, Aventyl) Paroxetine (Paxil) Sertraline (Zoloft) Venlafaxine (Effexor) Anti-Migraine Dihydroergotamine (DHE-45, Migranal) Eletriptan (Relpax) Naratriptan (Amerge) Sumatriptan (Imitrex, Sumavel) Zolmitriptan (Zomig) Blood Pressure Lisinopril (Zestril) Metoprolol (Lopressor,Toprol XL) Propranolol (Inderal) Verapamil (Kaye (more content not included)...[facility] 12-30-2021 Miscellaneous Notes* Telephone Encounter - Juan Romero APRN.SNOWBOARDER - 12/30/2021 9:50 AM EDT The following approved medication requests have been transmitted electronically. Requested Prescriptions Signed Prescriptions Disp Refills naproxen (NAPROSYN) 500 mg tablet 30 tablet 1 Sig: take 1 tablet by mouth two to three times a day if needed for headache - MAX OF 10 DAYS PER MONTH Authorizing Provider: JUAN ROMERO APRN.CNP * Telephone Encounter - Georgie Gracia - 12/30/2021 9:32 AM EDT Physician: Steve Call from patient requesting refill. Please E-Scribe Last OV: 08/29/2021 with Steve Future OV: Not scheduled. Requested Prescriptions Pending Prescriptions Disp Refills naproxen (NAPROSYN) 500 mg tablet [Pharmacy Med Name: NAPROXEN 500 MG TABLET] 30 tablet 1 Sig: take 1 tablet by mouth two to three times a day if needed for headache - MAX OF 10 DAYS PER MONTH [facility]: [facility] Instructions* Patient Instructions* Juan Romero APRN.CNP - 08/29/2021 9:47 AM EDT -- try Cefaly for prevention -- Eletriptan 40 mg: take 1 at onset of migraine, may repeat in 2 hours if necessary. No more than 2 pills in 24 hours or 2 days/week -- STOP Topamax -- next steps for prevention: nurtec, ubrelvy, gabapentin [facility] History of Present illness Narrative* Juan Romero APRN.CNP - 08/29/2021 9:30 AM EDT [facility] - Virtual Visit Last Visit: 01/02/2021, Juan Romero APRN.CNP Accompanied by: Self During this COVID-19 pandemic, patient's headache clinic evaluation was scheduled as a virtual visit using the following platform Melida Vicki Kenney was identified by name and and consented to the video evaluation and its limitations. Based on this evaluation it may be necessary for them to schedule a follow up evaluation with me or other neurologists for formal physical examination and if necessary,other studies. Primary Problem List: ACTIVE PROBLEM LIST Headache(784.0) Climacteric Herniated Disc Vitamin D Deficiency Mood Swings Depression Chief Complaint: Headache Impression and Plan from last visit: Vicki Kenney is a 60 year old year old female, with a history of MARY, migraine and MOH presenting today with well controlled now episodic migraines that are easily treated with relpax or mountain dew. She is very happy with her progress however her medication remains somewhat costly and varies month to month. She is working with her pharmacy and will let me know if we need to send her prescription to another pharmacy for ease of access. She is sleeping much better with the addition of Topamax and is tolerating this without side effects. She cancelled her sleep medicine appointment as she is sleeping well. Her neurological examination is essentially normal at this visit. ICHD-3 Diagnosis: Episodic Migraine Vicki Kenney has been previously approved for Calcitonin Gene Related Peptide Monoclonal Antibody (CGRP MAB) (Fremanezumab). The patient has demonstrated the following: Patient reduction in overall migraine days: Yes Patient reduction in moderate-severe migraine days: Yes Individual has obtained clinical benefit deemed significant by individual or prescriber: Yes Patient's quality of life and ability to perform ADLs has improved: Yes We suggest the patient continue treatment with CGRP MAB Fremanezumab. The following preventative medications have been tried for three or more months without benefit: Anti-Convulsant Divalproex sodium (Depakote) Topiramate (Topamax, Trokendi XL, Qudexy) Zonisamide (Zonegram) Anti-Depressant and Antipsychotic Amitriptyline (Elavil) Bupropion (Wellbutrin) Citalopram (Celexa) Doxepin (Sinequan) Duloxetine (Cymbalta) Escitalopram (Lexapro) Nortriptyline (Pamelor, Aventyl) Paroxetine (Paxil) Sertraline (Zoloft) Venlafaxine (Effexor) Blood Pressure Lisinopril (Zestril) Metoprolol (Lopressor,Toprol XL) Propranolol (Inderal) Verapamil (Verelan, Calan, Isoptin) MABs Fremanezumab (Ajovy) Galcanezumab (Emgality) Botulinum Toxin Onabotulimum Toxin A (Botox) Supplements CoQ10 Magnesium Riboflavin The following abortive medications have been tried but require high frequency use which can lead toMedication Overuse Headache: Anti-Migraine Dihydroergotamine (DHE-45, Migranal) Eletriptan (Relpax) Naratriptan (Amerge) Sumatriptan (Imitrex, Sumavel) Zolmitriptan (Zomig) PLAN: HEADACHE MANAGEMENT: (You are the primary guardian of your health and headache. Keep track of all medications: This includes the reason for use, side effects and benefits.) - Continue Ajovy 225 mg q1 month - patient will let me know via [facility] if this needs to go to another pharmacy besides [facility] - continue Topamax 100 mg at bedtime - continue relpax + naproxen as a rescue medication - continue supplementation - if needed will consider return to sleep medicine for evaluation although her sleep has much improved Interval Headache Hx: Was having trouble getting Ajovy filled and stopped it. Has not taken Ajovy since April and her headaches have continued to do well. Eletriptan does work well for her. Her last headache that would not go away turned out to actually be COVID-19. She had a kidney stone in June - 7 mm and did not catch the stone. Was on Topamax before without problems. Mother/brother also had kidney stones. Does use her Cefaly device - did get rid of the headache a couple of times. Headache 1 Location: bridge of nose Quality/Description: sharp and pressure Associated Symptoms: Photophobia: no Phonophobia: no Nausea: no Vomiting: no Other symptoms: none Worse with activity: yes Number of migraine headache days/month: 4 Number of NON-migraine headache days/month: 0 Number of headache free days/month: 26 Duration of headaches with treatment: hours (1 - 2 hours ) Current preventive treatment: Topamax 100 mg, supplements, relpax, cefaly device (sometimes it works sometimes it does not) Current abortive treatment: eletriptan Triggers: weather changes and stress Onset of headache to peak: abrupt Relieving factors: eletriptan, mountain dew Most common time of day for headache to begin: Most common time of day for headache to begin: can awake her from a sleep Days missed from work or school in the last month: 0 days Issues and questions to be addressed: - patient update Medications tried: Prior Therapies Duration of Use Dose Reason for Discontinuation Anti-Convulsant Divalproex sodium (Depakote) Gabapentin (Neurontin) Topiramate (Topamax, Trokendi XL, Qudexy) Zonisamide (Zonegram) Anti-Depressant and Antipsychotic Amitriptyline (Elavil) Bupropion (Wellbutrin) Citalopram (Celexa) Doxepin (Sinequan) Duloxetine (Cymbalta) Escitalopram (Lexapro) Nortriptyline (Pamelor, Aventyl) Paroxetine (Paxil) Sertraline (Zoloft) Venlafaxine (Effexor) Anti-Migraine Dihydroergotamine (DHE-45, Migranal) Eletriptan (Relpax) Naratriptan (Amerge) Sumatriptan (Imitrex, Sumavel) Zolmitriptan (Zomig) Blood Pressure Lisinopril (Zestril) Metoprolol (Lopressor,Toprol XL) Propranolol (Inderal) Verapamil (Verelan, Calan, Isoptin) MABs Fremanezumab (Ajovy) Galcanezumab (Emgality) Botulinum Toxin Onabotulimum Toxin A (Botox) Supplements CoQ10 Magnesium Riboflavin Other Medications [place] ALLERGIES No Known Allergies HEADACHE SCORES: Headache Questions 07/10/2020 10/29/2020 08/26/2021 ER visits since last office visit: 0 0 0 Hospital stays since last office visit 0 0 0 Limited ADLs in the last month: 0 0 0 Days missed from work or school in the last month: - 0 0 Days headache pain free in the last month: 15 20 20 Days per month with ALL of the following symptoms - decreased productivity, light sensitivity and nausea: 0 0 0 Initial improvement of headache after botox injection at last visit: Not applicable, I did not havea botox injection at my last visit Not applicable, I did not have a botox injection at my last visit Not applicable, I did not have a botox injection at my last visit PRN medication usage in the last month: 5 10 7 Patient impression of improvement since last visit: Much improved Minimally worse Very much improved HIT-6 07/10/2020 10/29/2020 08/26/2021 HIT-6 48 (Little or no impact) 49 (Little or no impact) 44 (Little or no impact) MECHELLE - 2/7 SCORES 07/10/2020 10/29/2020 08/26/2021 MECHELLE-2 Score 0 2 0 Migraine Specific QOL - Higher scores indicate better HRQL 11/25/2019 01/01/2020 08/26/2021 Role Function-Restrictive Transformed Score (range: 0-100) 74.28 82.85 97.14 Role Function-Preventive Transformed Score (range: 0-100) 85 95 100 Emotional Function Transformed Score (range: 0-100) 80 66.66 100 PHQ-9 07/10/2020 10/29/2020 08/27/2021 Score 5 3 3 REVIEW OF SYSTEMS: Review of systems unchanged. Examination: Vital Signs: [facility] 04/30/2012 General: well appearing, in no acute distress, alert Pain Behaviors: no pain behaviors observed Neurological: Mental Status: Alert and oriented to person, place and time. Affect is normal. Speech is spontaneous and fluent without dysarthria, normal in rate, volume and articulation and clear, coherent, and relevant. Short and skilled nursing memory, cognition and general fund of knowledge are good. Attention spanand concentration are excellent. HEENT: Head is normocephalic and features were symmetric. IMPRESSION: Vicki Kenney is a 61 year old year old female, with a history of new diagnosis of kidney stones, MARY, migraine and MOH presenting today with low frequency episodic migraines. Unfortunately she had a kidney stone in June and they were unable to catch the stone. We will stop topamax to eliminate potential for future stones. She is doing well and declined further prevention. We did talk aboutnext steps. She will try her Cefaly as a prevention. She is not overusing rescue medications! Her neurological examination is essentially normal at this visit. ICHD-3 Diagnosis: Episodic Migraine PLAN: HEADACHE MANAGEMENT: (You are the primary guardian of your health and headache. Keep track of all medications: This includes the reason for use, side effects and benefits.) MEDICATION TREATMENT: Medications to Start Taking eletriptan (RELPAX) 40 mg tablet Take 1 tablet by mouth as needed (for migraine headache). take 1 at onset of migraine, may repeat in 2 hours if necessary. No more than 2 pills in 24 hours or 2 days/week - use Cefaly for Prevention - STOP Topamax - next steps: gabapentin vs. Nurtec vs. ubrelvy for prevention Headache education was done. Discussed lifestyle modification including increased oral hydration, decreased caffeine, exercise and stress management. Discussed treatment options including preventive and acute medications, natural supplements, and infusion therapy. Discussed medication overuse headache and to limit use of acute treatments to no more than 2 days/week or 10 days/month. Discussed medication side effects, adverse reactions and drug interactions. Written educational materials and patient instructions outlining all of the above were given. RESEARCH: None at this time Follow-up: 3 months, PRN Level of service: Est level 2 (10-19 min). Time spent 18 min on the day of service, which included preparing to see the patient, [id number] patient care, completing clinical documentation, obtaining and/or reviewing separately obtained history, performing a medically appropriate examination, counseling and educating the patient/family/caregiver and ordering medications, tests, or procedures. Medical Decision Making The patient has my contact information and my chart sign up information. I performed this clinical encounter by utilizing a real time telehealth video connection between [employer] and the patient's location. The patient's location was confirmed during the visit. I obtained verbal consent from the patient to perform this clinical encounter utilizing video and prepared the patient by answering any questions they had about the telehealth. I addressed patient's questions and concerns in detail in regards to the chief complaint today in addition to all other comorbidities. Juan Romero APRN.ISI documented in this encounterU[facility] HealthEvalusaint [facility] note* Diagnosis Onset Date Resolution Status Atrophic vaginitis acute Work Phone: Evaluation note* Diagnosis Migraine without aura and without status migrainosus, not intractable- Primary Migraine without aura, without mention of intractable migraine without mention of status migrainosus [facility]* Diagnosis Onset Date Resolution Status Atrophic vaginitis acute Encounter for routine gynecological examination noneactive Work Phone: Evaluation note* Diagnosis Onset Date Resolution Status Admit Date Encounter for routine gynecological examination noneactive September 192024 3:07pm [facility] Work Phone: Reason for referral (narrative)No reason for referral information [facility]Mon[facility] Work Phone: Chief Complaint and Reason for Visit Chief Complaint dryness, burning, pa inful intercourse E-ORDER Reason for Visit Atrophic vaginitis Chief Complaint Annual (MAJOR CASE DETECTIVE) SCREENING Reason for Visit Atrophic vaginitis Encounter for routine gynecological examination Chief Complaint Admit Date Annual (MAJOR CASE DETECTIVE) October 13, 2024 3:07 pm Reason for Visit Admit Date Encounter for routine gynecological exam ination October 13, 2024 3:07pm Chief Complaint Admit Date Annual (MAJOR CASE DETECTIVE) October 13, 2024 3:07 pm Screening for breast cancer October 26 12:15pm Reason for Visit Admit Date Hormone replacement therapy October 13 025 3:07pm Encounter for routine gynecological exam ination October 13, 2024 3:07pm Family History Relationship Condition Age at Onset Recorded Date/T prosper mother Malignant neoplasm of colon Unknown Malignant neoplasm of pancreas Unknown Lymphoma Unknown Malignant neoplasm of cervix Unknown father Myocardial infarction 47 Hypertension Unknown Reason for Referral Specialty Diagnoses / Procedures Referred By Contac t Referred To Contact Diagnoses Migraine without aura and without status migrainosus, not intractable Procedures PROVIDER ORDERED FOLLOW UP OFFICE/OUTPATIENT [facility] 60-74 MINUTES Juan Romero APRN.SNOWBOARDER [id number] [address] Referral ID Status Reason Start Date Expiration Date Visits Requested Visits Authorized [id number] Authorized PCP Requested Referral 11/29/2021 08/29/2022 1 1 Summary Purpose Advance Directives No Advanced Directives Records FoundNo Advanced Directives Records Found Additional Source Comments Goals (unrecognized section and content) Goals may be documented in a n alternate sectionGoals may be documented in an alternate sectionGoals may be documented in an alternate sectionGoals may be documented in an alternate section Source Comments (unrecognize d section and content) In the event this informatio n is protected by the Federal Confidentiality of Alcohol and Drug Abuse Patient Records regulations: The Federal rules restrict any use of the information to criminally investigate or prosecute any alcohol or drug abuse patient.[facility] HealthIn the event this information is protected by the Federal Confidentiality of Alcohol and Drug Abuse Patient Records regulations: The Federal rules restrict any use of the information to criminally investigate or prosecute any alcohol or drug abuse patient.[facility] HealthIn the event this information is protected by the Federal Confidentiality of Alcohol and Drug Abuse Patient Records regulations: The Federal rules restrict any use of the information to criminally investigate or prosecute any alcohol or drug abuse patient.[facility] HealthIn the event this information is protected by the Federal Confidentiality of Alcohol and Drug Abuse Patient Records regulations: The Federal rules restrict any use of the information to criminally investigate or prosecute any alcohol or drug abuse patient.[facility] HealthIn the event this information is protected by the Federal Confidentiality of Alcohol and Drug Abuse Patient Records regulations: The Federal rules restrict any use of the information to criminally investigate or prosecute any alcohol or drug abuse patient.[facility] Reason for Visit (unrecogniz ed section and content) Reason Comments Follow Up Reason Comments Refill Request Reason Onset Date Comments Refill Request 11/12/2022 Reason Onset Date Comments Refill Request 11/16/2022 Care Teams (unrecognized sec tion and content) Assistant Merchandiser Relationship Specialty Start Date End Date Caridad Edmondson DO [address] [place], [place] [id number] PCP - General Family Practice 02/26/17 Assistant Merchandiser Relationship Specialty Start Date End Date Caridad Edmondson DO [address] [place], [place] [id number] PCP - General Family Practice 02/26/17 Assistant Merchandiser Relationship Specialty Start Date End Date Caridad Edmondson DO [address] [place], [place] [id number] PCP - General Family Medicine 02/26/17 Assistant Merchandiser Relationship Specialty Start Date End Date Caridad Edmondson DO [address] [place], [place] [id number] PCP - General Family Medicine 02/26/17 Team Status: Active Member Role Status Dates Dr. Caridad Edmondson DO Primary Care Provider Active Team Status: Inactive Member Role Status Dates Dr. Caridad Edmondson DO Primary Care Provider Active Start: October 13, 2024 End: October 13, 2024 Dr. Caridad Edmondson DO Referring Provider Active St art: October 13, 2024 End: October 13, 2024 Chel Suarez NP, CEO AND [employer] Attending Provider Active Start: October 13, 2024 End: October 13, 2024 Team Status: Active Member Role/Relationship Status Dates Dr. Caridad Edmondson DO Primary Care Provider Active Team Status: Inactive Member Role/Relationship Status Dates Dr. Caridad Edmondson DO Primary Care Provider Active Start: October 13, 2024 End: October 13, 2024 Dr. Caridad Edmondson DO Referring Provider Active St art: October 13, 2024 End: October 13, 2024 Chel Suarez CEO AND [employer] FOUNDER, CEO AND [employer] Attending Provider Active Start: October 13, 2024 End: October 13, 2024 Team Status: Inactive Member Role/Relationship Status Dates Dr. Caridad Edmondson DO Primary Care Provider Active Start: October 26, 2024 End: October 26, 2024 Chel Suarez NP, CEO AND [employer] Attending Provider Active Start: October 26, 2024 End: October 26, 2024 Chel Suarez CEO AND [employer] FOUNDER, CEO AND [employer] Referring Provider Active Start: October 26, 2024 End: October 26, 2024 INFORMATION SOURCE (unrecogn ized section and content) DATE CREATED AUTHOR 10/08/2022 [facility] DATE CREATED AUTHOR AUTHOR'S ORGANIZ ATION 10/30/2024 [facility] FOR RECORDS PERTAINING TO PATIENTS WHO ARE OR HAVE BEEN ENROLLED IN A CHEMICAL DEPENDENCY/SUBSTANCEABUSE PROGRAM, SOME INFORMATION MAY BE OMITTED. This clinical summary was aggregated from multiple sources. Caution should be exercised in using it in the provision of clinical care. This summary normalizes information from multiple sources, and as a consequence, information in this document may materially change the coding, format and clinical context of patient data. In addition, data may be omitted in some cases. CLINICAL DECISIONS SHOULD BE BASED ON THE PRIMARY CLINICAL RECORDS. [employer] provides no warranty or guarantee of the accuracy or completeness of information in this document.
--- OUTSIDE RECORDS SUMMARY | 2024-11-02 10:01 | XMS RPT_ITS | CCD ---
Author Organization [facility] Care Team Providers Care Commercial Pest Control Representative Name Role Phone Dossi Treasure THORPE Unavailable Dr. Caridad Edmondson Primary Care Provider [phone] Dr. Caridad Edmondson Referring Provider [phone] [place] ORDINARY SEAMAN, ORDINARY SEAMAN-C Chel Attending Provider [phone] Caridad Emdondson DO Primary Care Provider Caridad Edmondson DO Primary Care Provider Dr. Caridad Edmondson Primary Care Provider Dr. Caridad Edmondson Referring Provider [place] ORDINARY SEAMAN, ORDINARY SEAMAN-C Chel Attending Provider [phone] Caridad Edmondson DO Primary Care Provider [phone] JUAN ROMERO Attending Unavailable CARIDAD EDMONDSON Primary Care Unavailable Dr. Caridad Edmondson DO Primary Care Provider Dr. Caridad Edmondson DO Referring Provider [place] ORDINARY SEAMAN-C, Chel Attending Provider [place] ORDINARY SEAMAN, Chle Attending Unavailable Malarielle Caridad Referring Unavailable Malarielle Caridad Primary Care Unavailable Erick ORDINARY SEAMAN, Chel Referring Unavailable Erick ORDINARY SEAMAN, Chel Attending Unavailable Malys, Caridad Primary Care Unavailable [place] ORDINARY SEAMAN, Chel Attending Unavailable Malarielle, Caridad Primary Care Unavailable [place] ORDINARY SEAMAN, Chel Referring Unavailable Erick ORDINARY SEAMAN-C, Chel Referring Provider Allergies Allergy Classification Reported [...] by mouth daily for headaches ASPIRIN-ACETAMINO PHEN-CAFFEINE [id number] Annika Christie LPN Start: 07-17-2014 take 2 tablets by mo ut once daily for headache EXCEDRIN MIGRAINE 250-250-65 MG TABS Two tablets by mouth daily for headaches [id number] Annika Christie LPN Start: 07-17-2014 take 2 tablets by mo ut once daily for headache EXCEDRIN MIGRAINE 250-250-65 MG TABS Two tablets by mouth daily for headaches [id number] Caridad Edmondson DO amoxicillin 875 mg / clavulanate 125 mg oral tablet (12 sources) Penicillin-class Antibacterial Start: 07-28-2014 End: 03-13-2015 take 1 tablet by mouth twice daily AMOXICILLIN-POT CLAVULANATE 875-125 MG TABS 1 po Twice daily x 7 days AMOXICILLIN-POT CLAVULANATE [id number] Caridad Edmondson DO atenolol 25 mg oral tablet (12 sources) beta-Adrenergic Leno Start: 06-20-2015 End: 09-23-2016 take 1 tablet by mouth once daily at bedtime ATENOLOL 25 MG TABS 1 po daily at bedtime ATENOLOL 67412857031 Treasure Mendoza DC 24 hr buPROPion hydrochloride [...] 6 hours as needed for cough PROMETHAZINE-CODEINE [id number] Caridad Edmondson DO eletriptan 40 mg oral [...] 2 sprays each nostril daily FLUTICASONE PROPIONATE [id number] Caridad Edmondson DO 1.5 ml fremanezumab-vfrm 150 [...] 50 MG CAPS 1 po TID INDOMETHACIN 32581115252 Caridad Edmondson DO lisinopril 10 mg oral tablet (18 sources) Angiotensin Converting Enzyme Inhibitor Start: 03-20-2015 End: 05-04-2015 take 1 tablet by mouth once daily LISINOPRIL 10 MG TABS 1 po daily LISINOPRIL 20315505054 Caridad Edmondson DO magnesium oxide 500 mg [...] MG CAPS 1 po daily PHENTERMINE HCL 01722252009 Treasure Mendoza DC 24 hr propranolol hydrochloride 80 mg extended release oral capsule (12 sources) beta-Adrenergic Leno Start: 05-04-19 16 End: 06-20-19 16 take 1 capsule by mouth once daily PROPRANOLOL HCL ER 80 MG [id number] 1 po daily PROPRANOLOL HCL 35055011500 Caridad Edmondson DO riboflavin 400 mg oral [...] 50 MG TABS 1 po QHS TOPIRAMATE 27943356068 Caridad Edmondson DO Start: 07-17-2014 End: 03-13-2015 take 1 tablet by mouth once daily at bedtime TOPIRAMATE 100 MG TABS 1 po at QHS TOPIRAMATE 13384399050 Caridad Edmondson DO Comment on above: Take [...] x 3 days then BID VERAPAMIL HCL 98160574674 Caridad Edmondson DO Start: 08-08-2014 take 1 tablet by buddy th twice daily VERAPAMIL HCL 80 MG TABS 1 po BID VERAPAMIL HCL 74855137422 Caridad Edmondson DO Problems Active Problems Problem [...] By: Sejal Drummond on 10-26-2024 Study report [facility] Imaging Services [address] [place] [address] SCRN MAMM (CAD)W/JAVIER BILAT MR#: [id number] Acct: [id number] Name: VICKI KENNEY Rep #: [id number] : 1960 F 64 From: Lanette Drummond MD PCP: Dr. Caridad Edmondson DO Status: REG CLI Study:SCRN MAMM (CAD)W/JAVIER BILAT Date of Exa m: 10/26/24 Exam# [id number] Ordering Dr: Chel Suarez ORDINARY SEAMAN ORDINARY SEAMAN-C EXAM: SCRN MAMM (CAD)W/JAVIER BILAT DATE: 10/26/2024 [...] be mailed to the patient. Reading Location: [id number] CC: ORDINARY SEAMAN-C Chel Suaerz; Dr. 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 Caridad Edmondson DO Status: REG CLI Study: SCRN MAMM (CAD)W/JAVIER BILAT Date of Exam: 01/12 Exam# [id number] Ordering Dr: Chel Suarez NP ORDINARY SEAMAN -C EXAM: SCRN MAMM (CAD)W/JAVIER BILAT DATE: [...] be mailed to the patient. Reading Location: [id number] CC: ORDINARY SEAMAN-C Chel Suarez; Dr. Caridad Edmondson DO Shoelace Tipping Machine Operator: Signed Normal [facility] Manager Transition Office Visit Reporton 10-13-2024 Manager Transition Office Visit Report [facility] [address] [place] [address], [address] [place] [address] OFFICE VISIT Date of Service: 10/13/24 MR#: [id number] Acct: [id number] Name: VICKI KENNEY Rep #: [id number] : 1960 Provider: LIZ vu Age/Sex: 64/F Location: [facility] Status: Signed Intake Vital Signs 04/09/22 09:35 10/13/24 15:09 10/13/24 15:18 Height 5 ft 3 in 5 ft 3 in 5 ft 3 in Weight: 168 lb 6 oz BMI 29.8 BP 136/84 H 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) Chief Complaint: Annual Blue Line Trimmer Required: No Is patient in pain?: No [...] children current occupational status: employed 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 Normal [facility] CNCOon 10-06-2022 CNCO Letter Text Normal [facility] yobani [place] CNPNon 09-10-2022 CNPN Telephone (NHMNS2) VICKI KENNEY ([id number]) 1960 F Date Time Provider Department 09/10/22 JUAN ROMERO [facility] During your visit today, we recorded the following information about you: Betsy Cuadra RN 09/10/2022 2:47 PM Signed PA questions for Qulipta completed via PA pool. MEIR Mora 09/18/2022 11:17 AM Signed Patient called in, states PA info was not received. Can be called over the phone. . [phone] Betsy Cuadra RN 09/18/2022 11:29 AM Signed PA questions re-submitted via PA pool. VICKI KENNEY - MMO - 9;? 9;? 9;@ ([employer]) Covered: Retail, Mail Order Unknown: Specialty, Long-Term Care Group ID: [id number] Group name: ESTEVAN KENNEY BIN: [id number] PCN: : 1960 Legal sex: F Address: [address] [place] [id number] Betsy Cuadra RN 09/19/2022 7:40 AM Signed Attempted to submit PA on covermymeds. Vicki Kenney Bernal: [id number] Drug: Qulipta 60MG tablets Form: AddShoppers Electronic PA Form (2016 [facility]) Outcome PA has already submitted and is in process for this patient and drug.;CaseId:[id number];Status:In Process; Patient will need to reach [...] HEADACHE [R51] Climacteric [N95.1] 07/07/2012 Herniated disc [TAD3223] 05/24/2013 Vitamin D deficiency [E55.9] 05/25/2013 Mood swings [R45.86] 06/15/2013 Depression [F32.A] 12/13/2013 Encounter Status:Closed by BETSY CUADRA on 09/10/22 Normal [facility] Gram stain for investigation of transfusion reactionon 08-19-2021 Microscopic observation Gram stain Nom (Unsp spec) [facility] Work Phone: No Panel Informationon 08-19 POC Bacterial Vaginitis (Rapid) Negative [facility] Work Phone: Thin prep Papanicolaou smear with manual screeningon 08-19-2021 Cytopathology procedure, preparation of smear, genital source Normal genital danielito isolated [facility] Work Phone: Office Visit: Spine Visit- F ront facial headacheson 09-30-2016 Documentation of current medications (procedure) Done Invalid Interpretation Code [facility] Work Phone: Protein mass conc Done [facility] Work Phone: Office Visit: Spine Visit- F ront facial headacheson 09-24-2016 Documentation of current medications (procedure) Done Invalid Interpretation Code [facility] Work Phone: Office Visit: Spine Visit- N EWon 09-23-2016 Documentation of current medications (procedure) Done Invalid Interpretation Code [facility] Work Phone: Tobacco smoking status NHIS Never Invalid Interpretation Code [facility] Work Phone: Tobacco smoking status NHIS Never smoker [facility] Work Phone: Tobacco use [facility] Never smoker Invalid Interpretation Code [facility] Work Phone: Vital Signs Date Time Vital Sign Value Performing Clinician Facility 10-13-2024 15:18-0400 Body height 160.[address] Caridad Edmondson DO Work Phone: [facility] 10-13-2024 15:09-0400 Body mass index (BMI) [Ratio] 29.8 kg/m2 Dr. Caridad Edmondson DO Work Phone: [facility] 10-13-2024 15:09-0400 Body weight 76.[address] Caridad Edmondson DO Work Phone: [facility] 10-13-2024 15:09-0400 Diastolic blood pressure 84 mm[Hg] Dr. Caridad Edmondson DO Work Phone: [facility] 10-13-2024 15:09-0400 Systolic blood pressure 136 mm[Hg] Dr. Caridad Edmondson DO Work Phone: [facility] 04-09-2022 09:35-0500 Body height 160.[address] Caridad Edmondson Work Phone: [facility] Work Phone: 04-09-2022 09:32-0500 Body mass index (BMI) [Ratio] 28.4 kg/m2 Dr. Caridad Edmondson Work Phone: [facility] Work Phone: 04-09-2022 09:32-0500 Body weight 72.[address] Caridad Edmondson Work Phone: [facility] Work Phone: 04-09-2022 09:32-0500 Diastolic blood pressure 84 mm[Hg] Dr. Caridad Edmondson Work Phone: [facility] Work Phone: 04-09-2022 09:32-0500 Systolic blood pressure 138 mm[Hg] Dr. Caridad Edmondson Work Phone: [facility] Work Phone: 08-19-2021 09:08-0400 Body height 160.[address] Caridad Edmondson Work Phone: [facility] Work Phone: 08-19-2021 09:08-0400 Body mass index (BMI) [Ratio] 27.3 kg/m2 Dr. Caridad Edmondson Work Phone: [facility] Work Phone: 08-19-2021 09:08-0400 Body weight 69.[address] Caridad Edmondson Work Phone: [facility] Work Phone: 08-19-2021 09:08-0400 Diastolic blood pressure 100 mm[Hg] Dr. Caridad Edmondson Work Phone: [facility] Work Phone: 08-19-2021 09:08-0400 Systolic blood pressure 188 mm[Hg] Dr. Caridad Edmondson Work Phone: [facility] Work Phone: 09-23-2016 08:47-0400 BMI (Body Mass Index) 31.73 kg/m2 Treasure Mendoza DC [facility] Work Phone: 09-23-2016 08:47-0400 Pulse (Heart Rate) 89 /min Treasure Mendoza DC [facility] Work Phone: 09-23-2016 08:47-0400 Respiratory Rate 19 /min Treasure Mendoza DC [facility] Work Phone: 09-23-2016 08:47-0400 Weight 82.56 kg Treasure Mendoza DC [facility] Work Phone: 06-20-2015 10:35-0500 Body Temperature 97.9 [degF] Treasure Mendoza DC [facility] Work Phone: 06-20-2015 10:35-0500 BP Diastolic 90 mm[Hg] Treasure Mendoza DC [facility] Work Phone: 06-20-2015 10:35-0500 BP Systolic 148 mm[Hg] Treasure Mendoza DC [facility] Work Phone: 06-20-2015 10:35-0500 Pulse Oximetry 98 % Treasure Mendoza DC [facility] Work Phone: 03-26-2015 08:46-0500 BSA (Body Surface Area) 1.79 m2 Treasure Mendoza DC [facility] Work Phone: 07-17-2014 08:35-0400 Height 161.29 cm Treasure Mendoza DC [facility] Work Phone: Encounters Encounter Date Encounter Type Care Provider Facility Start: 11-07-2024 ambulatory Chel Suarez ORDINARY SEAMAN Facil ity:[facility] Start: 10-26-2024 End: 10-26-2024 ambulatory Chel Suarez ORDINARY SEAMAN Facility:[facility] Start: 10-26-2024 End: 10-26-2024 Patient encounter procedure Chel Suarez ORDINARY SEAMAN-C -Outpatient Breast Imaging Work Phone: Start: 10-13-2024 End: 10-13-2024 Patient encounter procedure Chel Suarez ORDINARY SEAMAN-C -[facility] Work Phone: Start: 10-13-2024 End: 10-13-2024 Patient encounter status Chel Suarez ORDINARY SEAMAN-C [facility] Start: 10-13-2024 End: 10-13-[address] Caridad Edmondson DO Work Phone: [facility] Work Phone: Start: 11-16-2022 Refill Juan Froims on COW PUNCHER.TELEPHONE ANSWERER Work Phone: Neurology Comment on above: Refill Request Start: 11-12-2022 Refill Juan Froims on COW PUNCHER.TELEPHONE ANSWERER Work Phone: Neurology Comment on above: Refill Request Start: 09-18-2022 ambulatory Juan Shaw on COW PUNCHER.TELEPHONE ANSWERER Work Phone: Neurology Comment on above: Samantha HIGH Start: 09-10-2022 End: 09-10-2022 ambulatory JUAN ROMERO Facility:[facility] Start: 04-18-2022 End: 04-18-[address] Caridad Edmondson Work Phone: [facility] Work Phone: Start: 04-18-2022 End: 04-18-[address] Caridad Edmondson Work Phone: [facility]-Outpatient Breast Imaging Start: 04-09-2022 End: 04-09-[address] Caridad Edmondson Work Phone: [facility] Start: 12-29-2021 Refill Afia allen PA-C Work Phone: Neurology Comment on above: Refill Request Start: 08-29-2021 End: 08-29-2021 ambulatory Juan Romero COW PUNCHER.TELEPHONE ANSWERER Work Phone: Neurology Comment on above: Migraine without aur a and without status migrainosus, not intractable (Primary Dx) Start: 08-29-2021 End: 08-29-2021 Telemedicine consultation with patient Juan Romero COW PUNCHER.TELEPHONE ANSWERER Work Phone: [facility] Start: 08-19-2021 End: 08-19-[address] Caridad Edmondson Work Phone: [facility]-Laboratory, Specimen Start: 08-19-2021 End: 08-19-[address] Caridad Edmondson Work Phone: [facility] Procedures Date Procedure Procedure Detail Performing [...] Mendo[place] Start: 07-11-2013 Mammography Juan jones APRN.TELEPHONE ANSWERER Work Phone: Start: 01-18-2013 Colonoscopy Juan jones COW PUNCHER.TELEPHONE ANSWERER Work Phone: Plan of Treatment Date Care Activity Detail Author Start: 07-02-2024 DIABETES SCREEN DIABETES SCREEN [facility] Start: 12-19-2022 Influenza vaccination INFLUENZA (#1) [facility] Start: 12-19-2021 Influenza vaccination [facility] Start: 08-20-2021 COVID-19 VACCINE (4 - Booster for Pfizer series) COVID-19 VACCINE (4 - Booster for Pfizer series) [facility] Start: 06-17-2021 COVID-19 VACCINE (4 - Booster for Pfizer series) COVID-19 VACCINE (4 - Booster for Pfizer series) [facility] Start: 06-17-2021 COVID-19 VACCINE (4 - Pfizer series) COVID-19 VACCINE (4 - Pfizer series) [facility] Start: 05-24-2018 LIPID SCREEN LIPID SCREEN [facility] Start: 10-07-2016 End: 10-07-2016 Appointment Appointment [facility] Work Phone: Start: 10-02-2016 End: 10-02-2016 Appointment Appointment [facility] Work Phone: Start: 09-30-2016 End: 09-30-2016 Appointment Appointment [facility] Work Phone: Start: 09-30-2016 End: 09-30-2016 Follow up Appt 2x/week Follow up Appt 2x/week [facility] Work Phone: Start: 09-24-2016 End: 09-24-2016 Appointment Appointment [facility] Work Phone: Start: 09-24-2016 End: 09-24-2016 [...] 09-26-2015 Neurology Referral Neurology Referral Davey Griffith, [address] [place] [address], [address] [facility] Work Phone: Start: 09-10-2014 HPV TESTING HPV TESTING [facility] Start: 09-10-2014 PAP TESTING PAP TESTING [facility] Start: 07-11-2014 Mammography MAMMOGRAM [facility] Start: 01-18-2014 Colonoscopy COLONOSCOPY [facility] Start: 01-18-2014 COLORECTAL CANCER SCREENING COLORECTAL CANCER SCREENING [facility] Start: 07-05-2011 SHINGRIX VACCINE (1 of 2) SHINGRIX VACCINE (1 of 2) [facility] Start: 10-29-2009 Urine microalbumin profile DTAP,TDAP,TD (2 - Tdap) [facility] Start: 2006 COLOGUARD (FIT-DNA) COLOGUARD (FIT-DNA) [facility] Start: [address] COLONOGRAPHY [facility] Start: 2006 FECAL OCCULT BLOOD FECAL OCCULT BLOOD [facility] Start: 2006 SIGMOIDOSCOPY SIGMOIDOSCOPY [facility] Start: 07-05-1979 HEPATITIS C SCREENING HEPATITIS C SCREENING [facility] Start: 07-05-1979 HIV SCREENING HIV SCREENING [facility] MG Breast - bilatera l Screening [facility] Patient Education Verapamil%20(O ral)%20(Ca psule,%20Extended%20Rele ase,%20Tablet,%20Tablet, %20Extended%20Release) [facility] Work Phone: [facility] Immunizations Immunization Date Immunization Notes Care Provider Elizabeth galvan 05-18-2012 influenza virus vaccine, unspecified formulation Juan Froimson [facility] Work Phone: [facility] 01-20-2009 influenza virus vaccine, live, attenuated, for intranasal use Juan Froimson [facility] Work Phone: [facility] Work Phone: 01-19-2008 influenza virus vaccine, live, attenuated, for intranasal use Juan Froimson [facility] Work Phone: [facility] Work Phone: 03-22-2003 influenza virus vaccine, unspecified formulation Juan Froimson [facility] Work Phone: [facility] Work Phone: 11-06-1999 hepatitis A vaccine, unspecified formulation Juan Froimson COW PUNCHER.TELEPHONE ANSWERER Work Phone: [facility] Work Phone: 10-30-1999 diphtheria and tetan us toxoids, adsorbed for pediatric use Juan Froimson [employer] Work Phone: [facility] Work Phone: Payers Date Payer Category Payer Self-pay [id number] 2018 Unknown MMO MMO [employer] [id number] 2018-Present [phone] [address] [place] [address] O [id number] 2018 Unknown [id number] 2011 Unknown [id number] Unknown [id number] Unknown [id number] Unknown [id number] Social History Date Type Detail Facility Start: 08-19-2021 End: 04-09-2022 Tobacco smoking status LAIS Unknown if ever smoked [facility] Work Phone: Start: 1960 Sex Assigned At Female [facility] Start: 10-10-2010 End: 04-09-2022 Tobacco smoking status LAIS Never smoked tobacco [facility] Work Phone: Start: 08-29-2021 End: 09-10-2022 Alcohol intake Current drinker of alcohol (finding) [facility] Start: 10-10-2010 Tobacco use and exposure Smokeless tobacco non-user [facility] Work Phone: Start: 09-09-2022 End: 09-10-2022 History of Social function [facility] Start: 09-09-2022 End: 09-10-2022 Tobacco use panel [facility] Adult Depression Screening Assessment 0 [facility] Start: 04-26-2019 Gender identity Identifies as female gender (finding) [facility] Start: 04-26-2019 Sexual orientation Heterosexual (fin ding) [facility] Clinical Notes 08-29-2021 to 06-26-2025 Note Date & Type Note Facility 10-13-2024 Evaluation note Diagnosis Onset Date Resolution Hormone replacement therapy acute October 13, 2024 3:07pm Encounter for routine gynecological examination noneactive October 13, 2024 3:07pm [facility] Work Phone: [phone] Miscellaneous Notes* Telephone Encounter - Juan Romero [...] [facility] Miscellaneous Notes* Telephone Encounter - Juan Romero [...] [facility] NoteHNO ID: [id number] Author: Juan Romero APRN.CNP Service: ? Author Type: Nurse Practitioner Type: Progress Notes Filed: 09/10/2022 1:40 PM Note Text: [facility] - Virtual Visit Last Visit: 08/29/2021, Juan Romero APRN.CNP Accompanied by: Self This visit was conducted as a virtual visit, with patient's permission, via zoom. It required patient-provider interaction for the medical decision making as documented below. Patient stated name and Patient location [place], [place] I have communicated my name and active licensure. The patient's identity and physical location were verified at the time of this visit. Either the patient or their legal passenger relations representative has been informed of the risks [...] Propranolol (Inderal) Verapamil (Kaye (more content not included)...[facility] 12-30-2021 Miscellaneous Notes* Telephone Encounter - Juan Romero APRN.TELEPHONE ANSWERER - 12/30/2021 9:50 AM EDT The following [...] Pharm[facility] Name[facility] Instructions* Patient Instructions* Juan Romero APRN.CNP - 08/29/2021 9:47 AM EDT -- try Cefaly for prevention -- Eletriptan 40 mg: take 1 at onset of migraine, may repeat in 2 hours if necessary. No more than 2 pills in 24 hours or 2 days/week -- STOP Topamax -- next steps for prevention: nurtec, ubrelvy, gabapentin [facility] History of Present illness Narrative* Juan Romero [...] - patient will let me know via [email or web address] if this needs to go to another [...] Review of systems unchanged. Examination: Vital Signs: [facility] 04/30/2012 General: well appearing, in no acute distress, alert Pain Behaviors: no pain behaviors observed Neurological: Mental Status: Alert and oriented to person, place and time. Affect is normal. Speech is spontaneous and fluent without dysarthria, normal in rate, volume and articulation and clear, coherent, and relevant. Short and [facility] memory, cognition and general fund of knowledge [...] which included preparing to see the patient, [id number] patient care, completing clinical documentation, obtaining and/or reviewing separately obtained history, performing a medically appropriate examination, counseling and educating the patient/family/caregiver and ordering medications, tests, or procedures. Medical Decision Making The patient has my contact information and my chart sign up information. I performed this clinical encounter by utilizing a real time telehealth video connection between [employer] and the patient's location. The patient's location [...] comorbidities. Juan Romero APRN.ISI [facility]* Diagnosis Onset Date Resolution Status Atrophic vaginitis acute [facility] Work Phone: Evaluation note* Diagnosis Migraine without aura and without status migrainosus, not intractable- Primary Migraine without aura, without mention of intractable migraine without mention of status migrainosus documented in this encounter [facility] Diagnosis Onset Date Resolution Status Atrophic vaginitis acute Encounter for routine gynecological examination noneactive [facility] Work Phone: Evaluation note* Diagnosis Onset Date Resolution Status Admit Date Encounter for routine gynecological examination noneactive September 192024 3:07pm [facility] Work Phone: Reason for referral (narrative)No reason for referral information [facility] Work Phone: Chief Complaint and Reason for Visit Chief Complaint dryness, burning, pa inful intercourse E-ORDER Reason for Visit Atrophic vaginitis Chief Complaint 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 Reason for Visit Atrophic vaginitis Encounter for routine gynecological examination Chief Complaint Admit Date 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) October 13, 2024 3:07 pm Reason for Visit Admit Date Encounter for routine gynecological exam ination October 13, 2024 3:07pm Chief Complaint Admit Date 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) October 13, 2024 3:07 pm Screening for [...] intractable Procedures PROVIDER ORDERED FOLLOW UP OFFICE/OUTPATIENT [facility] 60-74 MINUTES Juan Romero APRN.TELEPHONE ANSWERER [id number] [place] [address] Referral ID Status Reason Start Date Expiration Date Visits Requested Visits Authorized [id number] Authorized PCP Requested Referral 11/29/2021 08/29/2022 1 [...] or prosecute any alcohol or drug abuse patient.[facility] the event this information is protected by the Federal Confidentiality of Alcohol and Drug Abuse Patient Records regulations: The Federal rules restrict any use of the information to criminally investigate or prosecute any alcohol or drug abuse patient.[facility] Hospital[facility] the event this information is protected by the Federal Confidentiality of Alcohol and Drug Abuse Patient Records regulations: The Federal rules restrict any use of the information to criminally investigate or prosecute any alcohol or drug abuse patient.[facility] the event this information is protected by the Federal Confidentiality of Alcohol and Drug Abuse Patient Records regulations: The Federal rules restrict any use of the information to criminally investigate or prosecute any alcohol or drug abuse patient.[facility] the event this information is protected by the Federal Confidentiality of Alcohol and Drug Abuse Patient Records regulations: The Federal rules restrict any use of the information to criminally investigate or prosecute any alcohol or drug abuse patient.[facility] Reason for Visit (unrecogniz ed section and content) Reason Comments Follow Up Reason Comments Refill Request Reason Onset Date Comments Refill Request 11/12/2022 Reason Onset Date Comments Refill Request 11/16/2022 Care Teams (unrecognized sec tion and content) 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 Start Date End Date Caridad Edmondson DO [address] [place], [place] [id number] PCP - General Family Practice 02/26/17 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 Caridad Edmondson DO Primary Care Provider Active Team Status: Inactive Member Role Status Dates Dr. Caridad Edmondson DO Primary Care Provider Active Start: October 13, 2024 End: October 13, 2024 Dr. Caridad Edmondson DO Referring Provider Active St art: October 13, 2024 End: October 13, 2024 Chel Suarez NP, ORDINARY SEAMAN-C Attending Provider Active Start: October 13, 2024 [...] 2024 End: October 13, 2024 Chel Suarez ORDINARY SEAMAN, ORDINARY SEAMAN-C Attending Provider Active Start: October 13, 2024 End: October 13, 2024 Team Status: Inactive Member Role/Relationship Status Dates Dr. Caridad Edmondson DO Primary Care Provider Active Start: October 26, 2024 End: October 26, 2024 Chel Suarez NP, ORDINARY SEAMAN-C Attending Provider Active Start: October 26, 2024 End: October 26, 2024 Chel Suarez ORDINARY SEAMAN, ORDINARY SEAMAN-C Referring Provider Active Start: October 26, 2024 End: October 26, 2024 INFORMATION SOURCE (unrecogn ized section and content) DATE CREATED AUTHOR 10/08/2022 [facility] DATE CREATED AUTHOR AUTHOR'S ORGANIZ ATION 10/30/2024 [facility] FOR RECORDS PERTAINING TO PATIENTS WHO [...] BE BASED ON THE PRIMARY CLINICAL RECORDS. [employer] provides no warranty or guarantee of the accuracy or completeness of information in this document.
== END | disposition home or self-care (01) ==
PROVIDERS: PCP Family Medicine; Referring Provider Nurse Practitioner Women's Health; Visit Provider Nurse Practitioner Women's Health
DX: R92.8 Other abnormal and inconclusive findings on diagnostic imaging of breast (principal)
CPT/HCPCS: 76642; 77061; 77065; G0279

== ENCOUNTER → 2024-11-29 | Outpatient (CLI) | payer OTHER, SELFPAY ==
--- OUTSIDE RECORDS SUMMARY | 2024-11-29 09:30 | XMS RPT_ITS | CCD ---
Author Organization [facility] Care Team Providers Care Certified Nurse Aide Name Role Phone Dossi Treasure THORPE Unavailable Dr. Caridad Edmondson Primary Care Provider [phone] Dr. Caridad Edmondson Referring Provider [phone] [place] MACHINE GUN MECHANIC, MACHINE GUN MECHANIC-C Chel Attending Provider Caridad Edmondson DO Primary Care Provider [phone] Caridad Edmondson DO Primary Care Provider Dr. Caridad Edmondson Primary Care Provider [phone] Dr. Caridad Edmondson Referring Provider [phone] [place] MACHINE GUN MECHANIC, MACHINE GUN MECHANIC-C Chel Attending Provider Caridad Edmondson DO Primary Care Provider [phone] JUAN ROMERO Attending Unavailable CARIDAD EDMONDSON Primary Care Unavailable Dr. Caridad Edmondson DO Primary Care Provider [phone] Dr. Caridad Edmondson DO Referring Provider [place] MACHINE GUN MECHANIC-C, Chel Attending Provider [phone] [place] MACHINE GUN MECHANIC-C, Chel Referring Provider [phone] Erick, Chel Referring Unavailable Malys, Caridad Primary Care Unavailable [place], Chel Attending Unavailable Erick, Chel Referring Unavailable Malys, Caridad Primary Care Unavailable Erick, Chel Attending Unavailable Malys, Caridad Primary Care Unavailable Malys, Caridad Attending Unavailable Malys, Caridda Primary Care Unavailable Malys, Caridad Referring Unavailable [place], Chel Attending Unavailable Allergies Allergy Classification Reported Allergen(s) Allergy Type [...] by mouth daily for headaches ASPIRIN-ACETAMINO PHEN-CAFFEINE [id number] Annika Christie LPN Start: 07-17-2014 take 2 tablets by mo ut once daily for headache EXCEDRIN MIGRAINE 250-250-65 MG TABS Two tablets by mouth daily for headaches ELZTBLY-SPWFMMXOSXZCF-UCBSLOEX [id number] Annika Christie LPN Start: 07-17-2014 take 2 tablets by mo uth once daily for headache EXCEDRIN MIGRAINE 250-250-65 MG TABS Two tablets by mouth daily for headaches UXMJANQ-HUFPBEBKMZJTQ-TLYFGOWM [id number] Caridad Edmondson DO amoxicillin 875 mg / clavulanate 125 mg oral tablet (12 sources) Penicillin-class Antibacterial Start: 07-28-2014 End: 03-13-2015 take 1 tablet by mouth twice daily AMOXICILLIN-POT CLAVULANATE 875-125 MG TABS 1 po Twice daily x 7 days AMOXICILLIN-POT CLAVULANATE 84273496793 Caridad Edmondson DO atenolol 25 mg oral tablet (12 sources) beta-Adrenergic Leno Start: 06-20-2015 End: 09-23-2016 take 1 tablet by mouth once daily at bedtime ATENOLOL 25 MG TABS 1 po daily at bedtime ATENOLOL [id number] Treasure Mendoza DC 24 hr buPROPion hydrochloride [...] 6 hours as needed for cough PROMETHAZINE-CODEINE 71509227557 Caridad Edmondson DO eletriptan 40 mg oral [...] 2 sprays each nostril daily FLUTICASONE PROPIONATE 55163321841 Caridad Edmondson DO 1.5 ml fremanezumab-vfrm 150 [...] 50 MG CAPS 1 po TID INDOMETHACIN 39829246704 Caridad Edmondson DO lisinopril 10 mg oral tablet (18 sources) Angiotensin Converting Enzyme Inhibitor Start: 03-20-2015 End: 05-04-2015 take 1 tablet by mouth once daily LISINOPRIL 10 MG TABS 1 po daily LISINOPRIL 88338655686 Caridad Edmondson DO magnesium oxide 500 mg [...] MG CAPS 1 po daily PHENTERMINE HCL 05689212974 Treasure Mendoza DC 24 hr propranolol hydrochloride 80 mg extended release oral capsule (12 sources) beta-Adrenergic Leno Start: 05-04-19 16 End: 06-20-19 16 take 1 capsule by mouth once daily PROPRANOLOL HCL ER 80 MG [id number] 1 po daily PROPRANOLOL HCL 09826119323 Caridad Edmondson DO riboflavin 400 mg oral tablet (9 sources) Start: 04-03-20 21 End: 10-14-19 25 take 1 tablet by mouth once daily Riboflavin (Vitamin B2) 400 mg tablet Discontinued 400 mg PO DAILY April 03, 2021 1:00am October 13, 2024 3:16pm Start: 01-03-2020 take 2 tablets by mo ut twice daily riboflavin, vitamin B2, (VITAMIN B-2) [...] 50 MG TABS 1 po QHS TOPIRAMATE [id number] Caridad Edmondson DO Start: 07-17-2014 End: 03-13-2015 take 1 tablet by mouth once daily at bedtime TOPIRAMATE 100 MG TABS 1 po at QHS TOPIRAMATE 00125160616 Caridad Edmondson DO Comment on above: Take [...] on above: Take 1 capsule by mo ut twice daily. 24 hr divalproex sodium 500 [...] x 3 days then BID VERAPAMIL HCL 06046942079 Caridad Edmondson DO Start: 08-08-2014 take 1 tablet by buddy th twice daily VERAPAMIL HCL 80 MG TABS 1 po BID VERAPAMIL HCL 48731413947 Caridad Edmondson DO Problems Active Problems Problem [...] conditions (not mental disorders or infectious disease) (3 sources) Other abnormal and inconclusive findings on [...] Name Value Interpretation Reference Range Facility Breast Limited Unilateralon 11-02-2024 Breast Limited Unilateral [facility] Imaging Services [address] [place] [address] Breast Limited Unilateral MR#: [id number] Acct: [id number] Name: VICKI KENNEY Rep #: [id number] : 1960 F 64 From: Sejal Drummond MD PCP: Dr. Caridad Edmondson DO Status: REG CLI Study: Breast Limited Unilateral Date of Exam: Exam# [id number] Ordering Dr: Chel Suarez NP, NP -Dulce PROCEDURE: BREAST LIMITED UNILATERAL; RT BRST UNILAT OMKAR ADD-ON; DIAG MAMM W/CAD, UNILAT 11/02/2024 REASON FOR EXAM: 64-year-old female presents for finding in the right breast seen on the examination of 10/26/2024. No family history of breast cancer. COMPARISON: 10/26/2024, 03/22/2022, 04/18/2021. TECHNIQUE: BREAST LIMITED UNILATERAL; RT BRST UNILAT OMKAR ADD-ON; DIAG MAMM W/CAD, UNILAT FINDINGS: MAMMOGRAM: TISSUE DENSITY: The breasts are heterogeneously dense, which may obscure small masses. Follow-up examination performed for the asymmetry in the right breast seen on examination of 10/26/2024. On the present examination, the asymmetry in the superior right breast at middle depth partially effaces. ULTRASOUND: Ultrasound performed of the superior right breast. There is a cyst cluster in the right breast at 11:30- 12 o'clock, 5 cm from the nipple measuring 0.7 x 0.7 x 0.4 cm. This is a probable correlate for the mammographic finding. US/Breast Limited Unilateral IMPRESSION: Right breast cyst cluster is probably benign. Recommend short interval six-month follow-up diagnostic ultrasound of the right breast. BI-RADS 3: PROBABLY BENIGN. RECOMMENDATION: 6 Month Follow-up Reading Location: [id number] CC: MACHINE GUN MECHANICNato Suarez; Dr. Caridad Edmondson DO Ribbon Hanking Machine Operator: Signed [facility] DIAG MAMM W/CAD, UNILATon DIAG MAMM W/CAD, UNILAT [facility] Imaging Services [address] [place] [address] DIAG MAMM W/CAD, UNILAT MR#: [id number] Acct: [id number] Name: VICKI KENNEY Rep #: [id number] : 1960 F 64 From: Sejal Drummond MD PCP: Dr. Caridad Edmondson DO Status: REG CLI Study: DIAG MAMM W/CAD, UNILAT Date of Exam: 11/02/24 Exam# [id number] Ordering Dr: Chel Suarez NP MACHINE GUN MECHANIC -C PROCEDURE: BREAST LIMITED UNILATERAL; RT BRST UNILAT OMKAR ADD-ON; DIAG MAMM W/CAD, UNILAT 11/02/2024 REASON FOR EXAM: 64-year-old female presents for finding in the right breast seen on the examination of 10/26/2024. No family history of breast cancer. COMPARISON: 10/26/2024, 03/22/2022, 04/18/2021. TECHNIQUE: BREAST LIMITED UNILATERAL; RT BRST UNILAT OMKAR ADD-ON; DIAG MAMM W/CAD, UNILAT FINDINGS: MAMMOGRAM: TISSUE DENSITY: The breasts are heterogeneously dense, which may obscure small masses. Follow-up examination performed for the asymmetry in the right breast seen on examination of 10/26/2024. On the present examination, the asymmetry in the superior right breast at middle depth partially effaces. ULTRASOUND: Ultrasound performed of the superior right breast. There is a cyst cluster in the right breast at 11:30- 12 o'clock, 5 cm from the nipple measuring 0.7 x 0.7 x 0.4 cm. This is a probable correlate for the mammographic finding. BI/DIAG MAMM W/CAD, UNILAT IMPRESSION: Right breast cyst cluster is probably benign. Recommend short interval six-month follow-up diagnostic ultrasound of the right breast. BI-RADS 3: PROBABLY BENIGN. RECOMMENDATION: 6 Month Follow-up Reading Location: [id number] CC: MACHINE GUN MECHANIC-C Chel Suarez; Dr. Caridad Edmondson DO Ribbon Hanking Machine Operator: Signed [facility] Rt Brst Unilat Omkar Add-Onon 11-02-2024 Rt Brst Unilat Omkar Add-On [facility] Imaging Services [address] [place], [place] [address] Rt Brst Unilat Omkar Add-On MR#: [id number] Acct: [id number] Name: VICKI KENNEY Rep #: [id number] : 1960 F 64 From: Sejal Drummond MD PCP: Dr. Caridad Edmondson DO Status: REG CLI Study: Rt Brst Unilat Omkar Add-On Date of Exam: 11/02 Exam# [id number] Ordering Dr: Chel Suarez NP MACHINE GUN MECHANIC -C PROCEDURE: BREAST LIMITED UNILATERAL; RT BRST UNILAT OMKAR ADD-ON; DIAG MAMM W/CAD, UNILAT 11/02/2024 REASON FOR EXAM: 64-year-old female presents for finding in the right breast seen on the examination of 10/26/2024. No family history of breast cancer. COMPARISON: 10/26/2024, 03/22/2022, 04/18/2021. TECHNIQUE: BREAST LIMITED UNILATERAL; RT BRST UNILAT OMKAR ADD-ON; DIAG MAMM W/CAD, UNILAT FINDINGS: MAMMOGRAM: TISSUE DENSITY: The breasts are heterogeneously dense, which may obscure small masses. Follow-up examination performed for the asymmetry in the right breast seen on examination of 10/26/2024. On the present examination, the asymmetry in the superior right breast at middle depth partially effaces. ULTRASOUND: Ultrasound performed of the superior right breast. There is a cyst cluster in the right breast at 11:30- 12 o'clock, 5 cm from the nipple measuring 0.7 x 0.7 x 0.4 cm. This is a probable correlate for the mammographic finding. BI/Rt Brst Unilat Omkar Add-On IMPRESSION: Right breast cyst cluster is probably benign. Recommend short interval six-month follow-up diagnostic ultrasound of the right breast. BI-RADS 3: PROBABLY BENIGN. RECOMMENDATION: 6 Month Follow-up Reading Location: [id number] CC: MACHINE GUN MECHANIC-C Chel Suarez; Dr. Caridad Edmondson DO Ribbon Hanking Machine Operator: Signed [facility] Breast imaging reportOrdered By: Sejal Drummond on 10-26-2024 Study report [facility] Imaging Services [address] [place] [address] SCRN MAMM (CAD)W/OMKAR BILAT MR#: [id number] Acct: [id number] Name: VICKI KENNEY Rep #: [id number] : 1960 F 64 From: Lanette Drummond MD PCP: Dr. Caridad Edmondson DO Status: REG CLI Study:SCRN MAMM (CAD)W/OMKAR BILAT Date of Exa m: 10/26/24 Exam# [id number] Ordering Dr: Chel Suarez NP MACHINE GUN MECHANIC-C EXAM: SCRN MAMM (CAD)W/OMKAR BILAT DATE: 10/26/2024 CLINICAL HISTORY: F, Age 64 y/o , SCREENING FOR BREAST CANCER TECHNIQUE: SCRN MAMM (CAD)W/OMKAR BILAT COMPARISON: Prior exam(s) dated 03/22/2022, 04/17/2021, [...] identified in the left breast. BI/SCRN MAMM (CAD)W/OMKAR BILAT IMPRESSION: The asymmetry in the superior right breast at middle depth requires further evaluation. Recommend diagnostic mammogram of the right breast and ultrasound on the day of diagnostic if indicated. OVERALL FINAL ASSESSMENT BI-RADS 0: INCOMPLETE - NEED ADDITIONAL IMAGING EVALUATION. RECOMMENDATION: Additional Views obtained/call backs A letter with findings and recommendations will be mailed to the patient. Reading Location: [id number] CC: MACHINE GUN MECHANIC-C Chel Suarez; Dr. Caridad Edmondson DO ~ Ribbon Hanking Machine Operator: Signed [facility] SCRN MAMM (CAD)W/OMKAR BILATo n 10-26-2024 SCRN MAMM (CAD)W/OMKAR BILAT [facility] Imaging Services [address] [place], [place] [id number] SCRN MAMM (CAD)W/OMKAR BILAT MR#: [id number] Acct: [id number] Name: VICKI KENNEY Rep #: [id number] : 1960 F 64 From: Sejal Drummond MD PCP: Dr. Caridad Edmondson DO Status: REG CLI Study: SCRN MAMM (CAD)W/OMKAR BILAT Date of Exam: 01/12 Exam# [id number] Ordering Dr: Chel Suarez MACHINE GUN MECHANIC MACHINE GUN MECHANIC -C EXAM: SCRN MAMM (CAD)W/OMKAR BILAT DATE: 10/26/2024 CLINICAL HISTORY: F, Age 64 y/o , SCREENING FOR BREAST CANCER TECHNIQUE: SCRN MAMM (CAD)W/OMKAR BILAT COMPARISON: Prior exam(s) dated 03/22/2022, 04/17/2021, [...] identified in the left breast. BI/SCRN MAMM (CAD)W/OMKAR BILAT IMPRESSION: The asymmetry in the superior right breast at middle depth requires further evaluation. Recommend diagnostic mammogram of the right breast and ultrasound on the day of diagnostic if indicated. OVERALL FINAL ASSESSMENT BI-RADS 0: INCOMPLETE - NEED ADDITIONAL IMAGING EVALUATION. RECOMMENDATION: Additional Views obtained/call backs A letter with findings and recommendations will be mailed to the patient. Reading Location: [id number] CC: LIZ Suarez; Dr. Caridad Edmondson DO Ribbon Hanking Machine Operator: Signed [facility] Chinchilla Farmer Office Visit Reporton 10-13-2024 Chinchilla Farmer Office Visit Report [facility] [address], [address] [place] [address] OFFICE VISIT Date of Service: 10/13/24 MR#: [id number] Acct: [id number] Name: VICKI KENNEY Rep #: [id number] : 1960 Provider: LIZ vu Age/Sex: 64/F Location: [facility] Status: Signed Intake Vital Signs 04/09/22 09:35 10/13/24 15:09 10/13/24 15:18 Height 5 ft 3 in 5 ft 3 in 5 ft 3 in Weight: 168 lb 6 oz BMI 29.8 BP 136/84 H Intake 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 Vapor Recovery Unit Required: No Is patient in pain?: No [...] children current occupational status: employed 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 [facility] CNCOon 10-06-2022 CNCO Letter Text [facility] [place] [facility] [place] CNPNon 09-10-2022 CNPN Telephone (NHMNS2) VICKI KENNEY ([id number]) 1960 F Date Time Provider Department 09/10/22 JUAN ROMERO [facility] During your visit today, we recorded the following information about you: Betsy Cuadra RN 09/10/2022 2:47 PM Signed PA questions for Qulipta completed via PA pool. MEIR Mora 09/18/2022 11:17 AM Signed Patient called in, states PA info was not received. Can be called over the phone. Ph. [phone] Betsy Cuadra RN 09/18/2022 11:29 AM Signed PA questions re-submitted via PA pool. VICKI KENNEY - RODOLFOO - 9;? 9;? 9;@ ([employer]) Covered: Retail, Mail Order Unknown: Specialty, Long-Term Care Group ID: [id number] Group name: ESTEVAN KENNEY BIN: [id number] PCN: : 1960 Legal sex: F Address: [address] [place] [id number] Betsy Cuadra RN 09/19/2022 7:40 AM Signed Attempted to submit PA on covermymeds. Vicki Kenney Bernal: [id number] Drug: Qulipta 60MG tablets Form: [employer] Electronic PA Form (2016 [facility]) Outcome PA has already submitted and is in process for this patient and drug.;CaseId:[id number];Status:In Process; Patient will need to reach out to her insurance for auth status MEIR Mora RN 09/19/2022 8:24 AM Signed Chart notes uploaded to prior auth portal Lindsey Yaakov 10/02/2022 9:48 AM Signed Received message from [...] visit. Please draft appeal letter. Juan Romero APRN.ISI October 03, 2022 7:38 AM Betsy Cuadra RN 10/06/2022 10:51 AM Signed Appeal written and faxed. If there is a form that needs to be completed as well, will send tomorrow. MEIR Mora RN 10/07/2022 9:51 AM Signed Form completed and fax with appeal letter. Betsy Cuadra RN Allergies As of Date: 09/10/2022 (No Known Allergies) Date Reviewed: 09/10/2022 Reviewed by: Juan Romero APRN.[facility] - Fully Assessed Reason for Visit: Insurance [...] HEADACHE [R51] Climacteric [N95.1] 07/07/2012 Herniated disc [INJ6488] 05/24/2013 Vitamin D deficiency [E55.9] 05/25/2013 Mood swings [R45.86] 06/15/2013 Depression [F32.A] 12/13/2013 Encounter Status:Closed by BETSY CUADRA on 09/10/22 Normal [facility] Gram stain for investigation of transfusion reactionon 08-19-2021 Microscopic observation Gram stain Nom (Unsp spec) [facility] Work Phone: No Panel Informationon 08-19 POC Bacterial Vaginitis (Rapid) Negative [facility] Work Phone: Thin prep Papanicolaou smear with manual screeningon 08-19-2021 Cytopathology procedure, preparation of smear, genital source Normal genital danielito isolated [facility] Work Phone: Office Visit: Spine Visit- F ront facial headacheson 09-30-2016 Documentation of current medications (procedure) Done Invalid Interpretation Code [facility] Work Phone: Protein mass conc Done [facility] Work Phone: Office Visit: Spine Visit- F ront facial headacheson 09-24-2016 Documentation of current medications (procedure) Done Invalid Interpretation Code [facility] Work Phone: Office Visit: Spine Visit- N EWon 09-23-2016 Documentation of current medications (procedure) Done Invalid Interpretation Code [facility] Work Phone: Tobacco smoking status NHIS Never Invalid Interpretation Code [facility] Work Phone: Tobacco smoking status NHIS Never smoker [facility] Work Phone: Tobacco use [facility] Never smoker Invalid Interpretation Code [facility] Work Phone: Vital Signs Date Time Vital Sign Value Performing Clinician Facility 10-13-2024 15:18-0400 Body height 160.[address] Caridad Edmondson DO Work Phone: [facility] 10-13-2024 15:09-0400 Body mass index (BMI) [Ratio] 29.8 kg/m2 Dr. Caridad Edmondson DO Work Phone: [facility] 10-13-2024 15:09-0400 Body weight 76.[address] Caridad Edmondson DO Work Phone: [facility] 10-13-2024 15:09-0400 Diastolic blood pressure 84 mm[Hg] Dr. Caridad Edmondson DO Work Phone: [facility] 10-13-2024 15:09-0400 Systolic blood pressure 136 mm[Hg] Dr. Caridad Edmondson DO Work Phone: [facility] 04-09-2022 09:35-0500 Body height 160.[address] Caridad Edmondson Work Phone: [facility] Work Phone: 04-09-2022 09:32-0500 Body mass index (BMI) [Ratio] 28.4 kg/m2 Dr. Caridad Edmondson Work Phone: [facility] Work Phone: 04-09-2022 09:32-0500 Body weight 72.[address] Caridad Edmondson Work Phone: [facility] Work Phone: 04-09-2022 09:32-0500 Diastolic blood pressure 84 mm[Hg] Dr. Caridad Edmondson Work Phone: [facility] Work Phone: 04-09-2022 09:32-0500 Systolic blood pressure 138 mm[Hg] Dr. Caridad Edmondson Work Phone: [facility] Work Phone: 08-19-2021 09:08-0400 Body height 160.[address] Caridad Edmondson Work Phone: [facility] Work Phone: 08-19-2021 09:08-0400 Body mass index (BMI) [Ratio] 27.3 kg/m2 Dr. Caridad Edmondson Work Phone: [facility] Work Phone: 08-19-2021 09:08-0400 Body weight 69.[address] Caridad Edmondson Work Phone: [facility] Work Phone: 08-19-2021 09:08-0400 Diastolic blood pressure 100 mm[Hg] Dr. Caridad Edmondson Work Phone: [facility] Work Phone: 08-19-2021 09:08-0400 Systolic blood pressure 188 mm[Hg] Dr. Caridad Edmondson Work Phone: [facility] Work Phone: 09-23-2016 08:47-0400 BMI (Body Mass Index) 31.73 kg/m2 Treasure Mendoza DC [facility] Work Phone: 09-23-2016 08:47-0400 Pulse (Heart Rate) 89 /min Treasure Mendoza DC [facility] Work Phone: 09-23-2016 08:47-0400 Respiratory Rate 19 /min Treasure Mendoza DC [facility] Work Phone: 09-23-2016 [id number]:470400 Weight 82.56 kg Treasure Mendoza DC [facility] Work Phone: 06-20-2015 10:35-0500 Body Temperature 97.9 [degF] Treasure Downeysi MAURILIO [facility] Work Phone: 06-20-2015 10:35-0500 BP Diastolic 90 mm[Hg] Treasure Dossi MAURILIO [facility] Work Phone: 06-20-2015 10:35-0500 BP Systolic 148 mm[Hg] Treasure Dossi DC [facility] Work Phone: 06-20-2015 10:35-0500 Pulse Oximetry 98 % Treasure Mendoza DC [facility] Work Phone: 03-26-2015 08:46-0500 BSA (Body Surface Area) 1.79 m2 Treasure Mendoza DC [facility] Work Phone: 07-17-2014 08:35-0400 Height 161.29 cm Treasure Mendoza DC [facility] Work Phone: Encounters Encounter Date Encounter Type Care Provider Facility Start: 11-16-2024 ambulatory Caridad Edmondson Facility:[facility] Start: 11-02-2024 End: 11-02-2024 ambulatory [facility] Facility:[facility] Start: 10-26-2024 End: 10-26-[address] Caridad Edmondson DO Work Phone: -Outpatient Breast Imaging Start: 10-26-2024 End: 10-26-2024 Patient encounter procedure Chel Suarez MACHINE GUN MECHANIC-C -Outpatient Breast Imaging Work Phone: Start: 10-26-2024 End: 10-26-2024 ambulatory Chel Suarez Facility:[facility] Start: 10-13-2024 End: 10-13-2024 Patient encounter procedure Chel Suarez MACHINE GUN MECHANIC-C -[facility] Work Phone: Start: 10-13-2024 End: 10-13-2024 Patient encounter status Chel Suarez MACHINE GUN MECHANIC-C [facility] Start: 10-13-2024 End: 10-13-[address] Caridad Edmondson DO Work Phone: [facility] Work Phone: Start: 11-16-2022 Refill Juan Froims on [employer] Work Phone: Neurology Comment on above: Refill Request Start: 11-12-2022 Refill Juan Froims on [employer] Work Phone: Neurology Comment on above: Refill Request Start: 09-18-2022 ambulatory Juan Froims on [employer] [facility] Work Phone: Neurology Comment on above: Samantha HIGH Start: 09-10-2022 End: 09-10-2022 ambulatory JUAN FROIMSON Facility:[facility] Start: 04-18-2022 End: 04-18-[address] Caridad Edmondson Work Phone: [facility] Work Phone: Start: 04-18-2022 End: 04-18-[address] Caridad Edmondson Work Phone: [facility]-Outpatient Breast Imaging Start: 04-09-2022 End: 04-09-[address] Caridad Edmondson Work Phone: [facility] Start: 12-29-2021 Refill Afia allen PA-C Work Phone: Neurology Comment on above: Refill Request Start: 08-29-2021 End: 08-29-2021 ambulatory Juanher Shawon [employer] [facility] Work Phone: Neurology Comment on above: Migraine without aur a and without status migrainosus, not intractable (Primary Dx) Start: 08-29-2021 End: 05-12-2022 Telemedicine consultation with patient Juan Romero DANY.ISI Work Phone: [facility] Start: 08-19-2021 End: 08-19-[address] Caridad Edmondson Work Phone: [facility]-Laboratory, Specimen Start: 08-19-2021 End: 08-19-[address] Caridad Edmondson Work Phone: [facility] Procedures Date Procedure Procedure Detail Performing Clinician Start: 10-26-2024 Screening mammography D hitesh Edmondson DO Work Phone: Start: 04-18-2022 Screening mammography D hitesh Edmondson Work Phone: Start: 08-19-2021 Cytopathology proced ure, preparation of smear, genital source Dr. Caridad Edmondson Work Phone: Start: 08-19-2021 Investigation of transfusion reaction Dr. Caridad Edmondson Work Phone: Start: 09-30-2016 End: 09-30-2016 Chiropract manj 1-2 regions Treasure Frausto Giancarlo i DC Work Phone: Start: 09-24-2016 End: 09-24-2016 Chiropract manj 1-2 regions Treasure B Giancarlo i DC Work Phone: Start: 09-23-2016 End: 09-23-2016 X-ray exam of neck spine Treasure Mendoza D C Work Phone: Start: 07-17-2014 Adult health examination Well adult exam Treasure Mendoza DC Start: 07-11-2013 Mammography Juan jones APRN.[facility] Work Phone: Start: 01-18-2013 Colonoscopy Juan jones APRN.[facility] Work Phone: Plan of Treatment Date Care Activity Detail Author Start: 07-02-2024 DIABETES SCREEN DIABETES SCREEN [facility] Start: 12-19-2022 Influenza vaccination INFLUENZA (#1) [facility] Start: 12-19-2021 Influenza vaccination [facility] Start: 08-20-2021 COVID-19 VACCINE (4 - Booster for Pfizer series) COVID-19 VACCINE (4 - Booster for Pfizer series) [facility] Start: 06-17-2021 COVID-19 VACCINE (4 - Booster for Pfizer series) COVID-19 VACCINE (4 - Booster for Pfizer series) [facility] Start: 06-17-2021 COVID-19 VACCINE (4 - Pfizer series) COVID-19 VACCINE (4 - Pfizer series) [facility] Start: 05-24-2018 LIPID SCREEN LIPID SCREEN [facility] Start: 10-07-2016 End: 10-07-2016 Appointment Appointment [facility] Work Phone: Start: 10-02-2016 End: 10-02-2016 Appointment Appointment [facility] Work Phone: Start: 09-30-2016 End: 09-30-2016 Appointment Appointment [facility] Work Phone: Start: 09-30-2016 End: 09-30-2016 Follow up Appt 2x/week Follow up Appt 2x/week [facility] Work Phone: Start: 09-24-2016 End: 09-24-2016 Appointment Appointment [facility] Work Phone: Start: 09-24-2016 End: 09-24-2016 [...] 09-26-2015 Neurology Referral Neurology Referral Davey Griffith, [address] [place] [address], [id number] [facility] Work Phone: Start: 09-10-2014 HPV TESTING HPV TESTING [facility] Start: 09-10-2014 PAP TESTING PAP TESTING [facility] Start: 07-11-2014 Mammography MAMMOGRAM [facility] Start: 01-18-2014 Colonoscopy COLONOSCOPY [facility] Start: 01-18-2014 COLORECTAL CANCER SCREENING COLORECTAL CANCER SCREENING [facility] Start: 07-05-2011 SHINGRIX VACCINE (1 of 2) SHINGRIX VACCINE (1 of 2) [facility] Start: 10-29-2009 Urine microalbumin profile DTAP,TDAP,TD (2 - Tdap) [facility] Start: 2006 COLOGUARD (FIT-DNA) COLOGUARD (FIT-DNA) [facility] Start: [address] COLONOGRAPHY [facility] Start: 2006 FECAL OCCULT BLOOD FECAL OCCULT BLOOD [facility] Start: 2006 SIGMOIDOSCOPY SIGMOIDOSCOPY [facility] Start: 07-05-1979 HEPATITIS C SCREENING HEPATITIS C SCREENING [facility] Start: 07-05-1979 HIV SCREENING HIV SCREENING [facility] MG Breast - bilatera l Screening [facility] Patient Education Verapamil%20(O ral)%20(Ca psule,%20Extended%20Rele ase,%20Tablet,%20Tablet, %20Extended%20Release) [facility] Work Phone: [facility] c Immunizations Immunization Date Immunization Notes Care Provider Elizabeth galvan 05-18-2012 influenza virus vaccine, unspecified formulation Juan Froimson [employer] Work Phone: [facility] 01-20-2009 influenza virus vaccine, live, attenuated, for intranasal use Juan Froimson [employer] Work Phone: [facility] Work Phone: 01-19-2008 influenza virus vaccine, live, attenuated, for intranasal use Juan Froimson [employer] Work Phone: [facility] Work Phone: 03-22-2003 influenza virus vaccine, unspecified formulation Juan Froimson [employer] Work Phone: [facility] Work Phone: 11-06-1999 hepatitis A vaccine, unspecified formulation Juan Romero [employer] Work Phone: [facility] Work Phone: 10-30-1999 diphtheria and tetan us toxoids, adsorbed for pediatric use Juanher Romero [employer] Work Phone: [facility] Work Phone: Payers Date Payer Category Payer Self-pay [id number] 2018 Unknown MMO MMO [employer] [id number] 2018-Present [phone] [address] [place] [address] PPO [id number] 2018 Unknown [id number] 2011 Unknown [id number] Unknown [id number] Unknown [id number] Unknown [id number] Unknown [id number] Social History Date Type Detail Facility Start: 08-19-2021 End: 04-09-2022 Tobacco smoking status AZIS Unknown if ever smoked [facility] Work Phone: Start: 1960 Sex Assigned At Female C [facility] Start: 10-10-2010 End: 04-09-2022 Tobacco smoking status NHIS Never smoked tobacco [facility] Work Phone: Start: 08-29-2021 End: 09-10-2022 Alcohol intake Current drinker of alcohol (finding) [facility] Start: 10-10-2010 Tobacco use and exposure Smokeless tobacco non-user [facility] Work Phone: Start: 09-09-2022 End: 09-10-2022 History of Social function [facility] Start: 09-09-2022 End: 09-10-2022 Tobacco use panel [facility] Adult Depression Screening Assessment 0 [facility] Start: 04-26-2019 Gender identity Identifies as female gender (finding) [facility] Start: 04-26-2019 Sexual orientation Heterosexual (fin ding) [facility] Clinical Notes 08-29-2021 to 10-13-2024 Note Date & Type Note Facility 10-13-2024 Evaluation note Diagnosis Onset Date Resolution Hormone replacement therapy acute October 13, 2024 3:07pm Encounter for routine gynecological examination noneactive October 13, 2024 3:07pm [facility] Work Phone: 1(919) 880-228407-31-2023 Miscellaneous Notes* Telephone Encounter - Juan Romero APRN.CNP - 11/17/2022 10:08 AM EDT The following approved medication requests have been transmitted electronically. Requested Prescriptions Signed Prescriptions Disp Refills atogepant (QULIPTA) 60 mg tablet 30 tablet 2 Sig: Take 1 tablet (60 mg) by mouth once daily. Authorizing Provider: JUAN ROMERO APRN.CNP * Telephone Encounter - Halie Karuna - 11/17/2022 9:33 AM EDT Physician: Steve [...] [facility] Miscellaneous Notes* Telephone Encounter - Juan [...] 24 hours or 2 days/week Pharm[facility] NoteHNO ID: [id number] Author: Juan Romero APRN.CNP Service: ? Author Type: Nurse Practitioner Type: Progress Notes Filed: 09/10/2022 1:40 PM Note Text: [facility] - Virtual Visit Last Visit: 08/29/2021, Juan Romero APRN.CNP Accompanied by: Self This visit was conducted as a virtual visit, with patient's permission, via zoom. It required patient-provider interaction for the medical decision making as documented below. Patient stated name and Patient location [place], [place] I have communicated my name and active licensure. The patient's identity and physical location were verified at the time of this visit. Either the patient or their legal premium service representative has been informed of the risks [...] Propranolol (Inderal) Verapamil (Kaye (more content not included)...[facility] 12-30-2021 Miscellaneous Notes* Telephone Encounter - Juan Romero APRN.CNP - 12/30/2021 9:50 AM EDT The following [...] Pharm[facility]: [facility] Instructions* Patient Instructions* Juan Romero APRN.CNP - 08/29/2021 9:47 AM EDT -- try Cefaly for prevention -- Eletriptan 40 mg: take 1 at onset of migraine, may repeat in 2 hours if necessary. No more than 2 pills in 24 hours or 2 days/week -- STOP Topamax -- next steps for prevention: nurtec, ubrelvy, gabapentin [facility] History of Present illness Narrative* Juan Romero APRN.CNP - 08/29/2021 9:30 AM EDT [facility] - Virtual Visit Last Visit: 01/02/2021, Juan Romero APRN.CNP Accompanied by: Self During this COVID-19 pandemic, patient's headache clinic evaluation was scheduled as a virtual visit using the following platform Zoom Vicki Kenney was identified by name and [...] - patient will let me know via Otelichart if this needs to go to another [...] Known Allergies HEADACHE SCORES: Headache Questions 07/10/2020 10/29/202008/2608/26/2021 ER visits since last office visit: 0 [...] Review of systems unchanged. Examination: Vital Signs: LMP 04/30/2012 General: well appearing, in no acute distress, alert Pain Behaviors: no pain behaviors observed Neurological: Mental Status: Alert and oriented to person, place and time. Affect is normal. Speech is spontaneous and fluent without dysarthria, normal in rate, volume and articulation and clear, coherent, and relevant. Short and medical terminologist memory, cognition and general fund of knowledge [...] which included preparing to see the patient, [id number] patient care, completing clinical documentation, obtaining and/or reviewing separately obtained history, performing a medically appropriate examination, counseling and educating the patient/family/caregiver and ordering medications, tests, or procedures. Medical Decision Making The patient has my contact information and my chart sign up information. I performed this clinical encounter by utilizing a real time telehealth video connection between [employer] and the patient's location. The patient's location was confirmed during the visit. I obtained verbal consent from the patient to perform this clinical encounter utilizing video and prepared the patient by answering any questions they had about the telehealth. I addressed patient's questions and concerns in detail in regards to the chief complaint today in addition to all other comorbidities. Juan Romero APRN.CNP [facility] Diagnosis Onset Date Resolution Status Atrophic vaginitis acute [facility] Work Phone: evaluation note* Diagnosis Migraine without aura and without status migrainosus, not intractable- Primary Migraine without aura, without mention of intractable migraine without mention of status migrainosus documented in this encounter [facility] note* Diagnosis Onset Date Resolution Status Atrophic vaginitis acute Encounter for routine gynecological examination noneactive [facility] Work Phone: evaluation note* Diagnosis Onset Date Resolution Status Admit Date Encounter for routine gynecological examination noneactive September 192024 3:07pm [facility] Work Phone: Reason for referral (narrative)No reason for referral information availablePat[facility] Work Phone: Chief Complaint and Reason for Visit Chief Complaint dryness, burning, pa inful intercourse E-ORDER Reason for Visit Atrophic vaginitis Chief Complaint 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) SCREENING Reason for Visit Atrophic vaginitis Encounter for routine gynecological examination Chief Complaint Admit Date 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) October 13, 2024 3:07 pm Reason for Visit Admit Date Encounter for routine gynecological exam ination October 13, 2024 3:07pm Chief Complaint Admit Date 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) October 13, 2024 3:07 pm Screening for breast cancer October 26 12:15pm Reason for Visit Admit Date Hormone replacement therapy October 13 3:07pm Encounter for routine gynecological exam ination October 13, 2024 3:07pm Family History No Family History Records Found Relationship Condition Age at Onset Recorded Date/T prosper mother Malignant neoplasm of colon Unknown Malignant neoplasm of pancreas Unknown Lymphoma Unknown Malignant neoplasm of cervix Unknown father Myocardial infarction 48 Hypertension Unknown Reason for Referral Specialty Diagnoses / Procedures Referred By Tonia t Referred To Contact Diagnoses Migraine without aura and without status migrainosus, not intractable Procedures PROVIDER ORDERED FOLLOW UP OFFICE/OUTPATIENT NEW HIGH MDM 60-74 MINUTES Juan Romero APRN.CNP [id number] [place] [address] Referral ID Status Reason Start Date Expiration Date Visits Requested Visits Authorized [id number] Authorized PCP Requested Referral 11/29/2021 08/29/2022 1 [...] or prosecute any alcohol or drug abuse patient.[facility] the event this information is protected by the Federal Confidentiality of Alcohol and Drug Abuse Patient Records regulations: The Federal rules restrict any use of the information to criminally investigate or prosecute any alcohol or drug abuse patient.[facility] the event this information is protected by the Federal Confidentiality of Alcohol and Drug Abuse Patient Records regulations: The Federal rules restrict any use of the information to criminally investigate or prosecute any alcohol or drug abuse patient.[facility] the event this information is protected by the Federal Confidentiality of Alcohol and Drug Abuse Patient Records regulations: The Federal rules restrict any use of the information to criminally investigate or prosecute any alcohol or drug abuse patient.[facility] the event this information is protected by the Federal Confidentiality of Alcohol and Drug Abuse Patient Records regulations: The Federal rules restrict any use of the information to criminally investigate or prosecute any alcohol or drug abuse patient.[facility] Reason for Visit (unrecogniz ed section and content) Reason Comments Follow Up Reason Comments Refill Request Reason Onset Date Comments Refill Request 11/12/2022 Reason Onset Date Comments Refill Request 11/16/2022 Care Teams (unrecognized sec tion and content) Certified Nurse Aide Relationship Specialty Start Date End Date Caridad Edmondson DO [address] [place] [address] PCP - General Family Practice 02/26/17 Certified Nurse Aide Relationship Specialty Start Date End Date Caridad Edmondson DO [address] [place], [place] [id number] PCP - General Family Practice 02/26/17 Certified Nurse Aide Relationship Specialty Start Date End Date Caridad Edmondson DO [address] [place], [place] [id number] PCP - General Family Medicine 02/26/17 Certified Nurse Aide Relationship Specialty Start Date End Date Caridad Edmondson DO [address] [place] [address] PCP - General Family Medicine 02/26/17 Team Status: Active Member Role Status Dates Dr. Caridad Edmondson DO Primary Care Provider Active Team Status: Inactive Member Role Status Dates Dr. Caridad Edmondson DO Primary Care Provider Active Start: October 13, 2024 End: October 13, 2024 Dr. Caridad Edmondson DO Referring Provider Active St art: October 13, 2024 End: October 13, 2024 Chel Suarez MACHINE GUN MECHANIC, MACHINE GUN MECHANIC-C Attending Provider Active Start: October 13, 2024 [...] 2024 End: October 13, 2024 Chel Suarez MACHINE GUN MECHANIC, MACHINE GUN MECHANIC-C Attending Provider Active Start: October 13, 2024 End: October 13, 2024 Team Status: Inactive Member Role/Relationship Status Dates Dr. Caridad Edmondson DO Primary Care Provider Active Start: October 26, 2024 End: October 26, 2024 Chel Suarez MACHINE GUN MECHANIC, MACHINE GUN MECHANIC-C Attending Provider Active Start: October 26, 2024 End: October 26, 2024 Chel Suarez MACHINE GUN MECHANIC, MACHINE GUN MECHANIC-C Referring Provider Active Start: October 26, 2024 End: October 26, 2024 INFORMATION SOURCE (unrecogn ized section and content) DATE CREATED AUTHOR 10/08/2022 [facility] DATE CREATED AUTHOR 'S HUI ATION 11/18/2024 [facility] FOR RECORDS PERTAINING TO PATIENTS WHO [...] BE BASED ON THE PRIMARY CLINICAL RECORDS. [facility] [employer] [facility]. provides no warranty or guarantee of the accuracy or completeness of information in this document.
[2024-11-29 12:29] LABS: Hematocrit 39.9 % (37-47); Hemoglobin 13.4 g/dL (12.0-15.0); Immature Granulocytes Count 0.020 X10^3/uL (0.0-0.0); Mean Corp Hgb Conc 33.6 g/dL (32-36); Mean Corpuscular Volume 91.9 fL (81-99); Mean Platelet Vol. 9.6 fl (6.2-12.0); NRBC Flagged by Analyzer 0 % (0-5); Platelet Count 265 K/mm3 (150-450); RBC Distribution Width CV 12.8 % (11.6-14.6); RBC Distribution Width SD 43.5 fl (35.1-43.9); Red Blood Count 4.34 M/mm3 (4.2-5.4); White Blood Count 7.6 K/mm3 (4.4-11.0)
[2024-11-29 12:50] LABS: AST(SGOT) 21 U/L (<=31); Alanine Aminotransfer ALT/SGPT 14 U/L (<=34); Albumin, Serum 4.0 g/dL (3.4-4.8); Alkaline Phosphatase 51 U/L (35-104); Anion Gap 11 (5-15); BUN 16 mg/dL (4-19); BUN/Creat Ratio 16.2 RATIO (10-20); CRP 3.80 mg/L (0.0-3.0); Calcium,Total 9.1 mg/dL (7.6-11.0); Carbon Dioxide 22.0 mmol/L (21.0-32.0); Chloride 107 mmol/L (98-108); Cholesterol 233 mg/dL (<=200); Globulin 2.7 g/dL (2.2-4.2); Glucose 109 mg/dL (70-99); Low Density Lipoprotein Calc. 153 mg/dL; Potassium 4.0 mmol/L (3.3-5.1); Triglycerides 132 mg/dL; Very Low Density Lipoprotein 26 mg/dL (5-40); cholesterol:hdl ratio screen 4.34
[2024-11-29 13:41] LABS: Vitamin B12 983 pg/mL (180-914); Vitamin D,25 Hydroxy 56.9 ng/mL (30-100)
[2024-12-06 12:08] LABS: Vitamin A, Retinol 56.9 ug/dL (22.0-69.5)
== END | disposition home or self-care (01) ==
LOC: BFHLAB 08:37
PROVIDERS: PCP Family Medicine; Visit Provider Family Medicine
DX: Z00.00 Encounter for general adult medical examination without abnormal findings (principal); F41.9 Anxiety disorder, unspecified; I10 Essential (primary) hypertension; E55.9 Vitamin D deficiency, unspecified; G43.709 Chronic migraine without aura, not intractable, without status migrainosus; R79.82 Elevated C-reactive protein (CRP)
CPT/HCPCS: 36415; 80053; 80061; 82306; 82607; 84590; 85025; 85652; 86140

== ENCOUNTER → 2025-01-20 | Outpatient (CLI) | payer OTHER, SELFPAY ==
--- OUTSIDE RECORDS SUMMARY | 2025-01-20 07:04 | XMS RPT_ITS | CCD ---
Author Organization [facility] Care Team Providers Care Knuckle Strap Sewer Name Role Phone Dossi MAURILIOTreasure Unavailable Dr. Caridad Edmondson Primary Care Provider Dr. Caridad Edmondson Referring Provider Erick TELEPHONE SEX WORKER, TELEPHONE SEX WORKER-C Chel Attending Provider Caridad Edmondson DO Primary Care Provider Caridad Edmondson DO Primary Care Provider Dr. Caridad Edmondson Primary Care Provider [phone] Dr. Caridad Edmondson Referring Provider Erick TELEPHONE SEX WORKER, TELEPHONE SEX WORKER-C Chel Attending Provider Caridad Edmondson DO Primary Care Provider Dr. Caridad Edmondson DO Primary Care Provider Dr. Caridad Edmondson DO Referring Provider Erick TELEPHONE SEX WORKER-CChel Attending Provider Erick TELEPHONE SEX WORKER-CChel Referring Provider Dr. Caridad Edmondson DO Attending Provider [phone] Caridad Edmondson DO Primary Care Provider CARIDAD EDMONDSON Primary Care Unavailable LIZZETTE MUÑOZIN C Attending Unavailable LIZZETTE MUÑOZIN C Referring Unavailable CARIDAD EDMONDSON A Primary Care Unavailable LIZZETTE MUÑOZIN C Attending Unavailable CARIDAD EDMONDSON A Primary Care Unavailable Caridad Edmondson Attending Unavailable Malys, Caridad Primary Care Unavailable Malys, Caridad Primary Care Unavailable Erick, Chel Attending Unavailable [place], Chel Referring Unavailable Malys, Caridad Attending Unavailable Malys, Caridad Referring Unavailable Malys, Caridad Primary Care Unavailable Malys, Caridad Primary Care Unavailable Malys, Caridad Referring Unavailable Erick, Chel Attending Unavailable [place], Chel Attending Unavailable Erick, Chel Referring Unavailable Malys, Caridad Primary Care Unavailable Allergies Allergy Classification Reported Allergen(s) Allergy Type Date of Onset Reaction(s) Facility (6 sources) Dust; Translations: [DUST] allergy to substance [facility] Work Phone: Medications Current Medications Medication [...] (60 mg ) by mouth once daily. eletriptan 40 mg oral tablet (11 sources) Serotonin-1b and Serotonin-1d Receptor Agonist Start: [...] above: Take 1 tablet by buddy th as needed (for migraine headache). take 1 at onset of migraine, may repeat in 2 hours if necessary. No more than 2 pills in 24 hours or 2 days/week eletripton (5 sources) Start: 04-03-2021 eletripton Active PO April 03, 2021 2:05pm Start: 04-03-2021 eletripton Act pamela PO 0 April 03, 2021 1:00am Start: 04-03-2021 eletripton Act pamela PO April 03, 2021 1:00am Start: 04-03-2021 eletripton Act pamela PO April 03, 2021 12:00am Iodine (3 sources) Start: 10-13-2024 Iodine (Bladde rwck (Iodine)) 151 mcg capsule Active ug PO October 13, 2024 12:00am Lactobacillus acidophilus (4 sources) take 1 capsule by mouth once daily Lactobacillus acidophilus (PROBIOTIC ACIDOPHILUS PO) Take 1 capsule by mouth once daily. Active Lactobacillus ac idophilus (PROBIOTIC ACIDOPHILUS PO) Take by mouth. Active Lactobacillus Combination No.9 (Adult 50 Plus Probiotic) 4 billion cell capsule (3 sources) Start: 10-13-2024 take 4 capsules by mouth once daily Lactobacillus Combination No.9 (Adult 50 Plus Probiotic) 4 billion cell capsule Active 4000 NMA PO daily October 13, 2024 12:00am administer with a meal naproxen 500 mg oral tablet (20 sources) Nonsteroidal Anti-inflammatory Drug Start: 12-30-2021 naproxen [...] - MAX OF 10 DAYS PER MONTH progesterone 200 mg oral capsule (7 sources) Progesterone Start: 10-14-19 take 1 capsule by mouth at bedtime Progesterone Micronized 200 mg capsule Active 200 mg PO AT BEDTIME October 13, 2024 12:00am TENS unit and electrodes (CEFALY) cmpk (9 sources) Start: 01-03-20 TENS unit and electrodes (CEFALY) cmpk 1 Package as needed (for migraine headache). 1 Device 01/03/2020 Active Start: 01-03-2020 TENS unit and electrodes (CEFALY) cmpk 1 Package as needed (for migraine headache). 1 Device 0 01/03/2020 Active Comment on above: 1 Package as needed (for migraine headache). 24 hr divalproex sodium 500 mg extended release oral tablet (7 sources) Mood Stabilizer, Anti-epileptic Agent Start: 09-10-2022 divalproex ER (DEPAKOTE ER) 500 mg 24 hr tablet take 2 PO at bedtime for 5 days then 1 PO at bedtime for 5 days, then stop. 15 tablet 09/10/2022 Active Comment on above: take 2 PO at bedtime for 5 days then 1 PO at bedtime for 5 days, then stop. Completed/Discontinued Medications Medication Drug Class(es) Dates Sig (Normalized) Sig (Original) ASPIRIN-ACETAMINO PHEN-CAFFEINE (12 sources) Nonsteroidal Anti-inflammatory Drug, Central Nervous System Stimulant, Methylxanthine Start: 07-17-2014 take 2 tablets by mouth once daily for headache EXCEDRIN MIGRAINE 250-250-65 MG TABS Two tablets by mouth daily for headaches ASPIRIN-ACETAMINO PHEN-CAFFEINE [id number] Annika Christie LPN Start: 07-17-2014 take 2 tablets by [facility] once daily for headache EXCEDRIN MIGRAINE 250-250-65 MG TABS Two tablets by mouth daily for headaches [id number] Annika Christie LPN Start: 07-17-2014 take 2 tablets by mo [facility] once daily for headache EXCEDRIN MIGRAINE 250-250-65 MG TABS Two tablets by mouth daily for headaches ENHSLAI-[id number] Caridad Edmondson DO amoxicillin 875 mg / clavulanate 125 mg oral tablet (12 sources) Penicillin-class Antibacterial Start: 07-28-2014 End: 03-13-2015 take 1 tablet by mouth twice daily AMOXICILLIN-POT CLAVULANATE 875-125 MG TABS 1 po Twice daily x 7 days AMOXICILLIN-POT CLAVULANATE [id number] Caridad Edmondson DO atenolol 25 mg oral tablet (12 sources) beta-Adrenergic Leno Start: 06-20-2015 End: 09-23-2016 take 1 tablet by mouth once daily at bedtime ATENOLOL 25 MG TABS 1 po daily at bedtime ATENOLOL [id number] Treasure Mendoza DC 24 hr buPROPion hydrochloride 300 mg extended release oral tablet (14 sources) Aminoketone Start: 04-03-2021 End: 10-13-2024 take 1 tablet by mouth once daily in the morning Bupropion Hcl 300 mg tablet extended release 24 hr Discontinued 300 mg PO EVERY MORNING April 03, 2021 1:00am October 13, 2024 3:16pm Start: 05-02-2019 buPROPion XL ( WELLBUTRIN XL) 300 mg 24 hr tablet 05/02/2019 Active codeine phosphate 2 mg/ml / promethazine hydrochloride 1.25 mg/ml oral solution (12 sources) Opioid Agonist, Phenothiazine Start: 07-28-2014 End: 03-13-2015 take 5 mL by mouth every six hours as needed for cough PROMETHAZINE-CODEINE 6.25-10 MG/5ML SYRP 5 ml po every 6 hours as needed for cough PROMETHAZINE-CODEINE [id number] Caridad Edmondson DO estradiol 0.01 mg vaginal insert (14 sources) Estrogen Start: 04-09-2022 End: 10-13-2024 Estradiol (Yuvafem) 10 mcg tablet Discontinued 10 ug VAGINAL .COMPLEX 28 14 4 April 09, 2022 1:00am October 13, 2024 3:16pm 10 mcg vaginally daily X 2 weeks then 3 times per week; Start: 04-09-2022 Estradiol (Yuv afem) 10 mcg tablet Active 10 MCG VAGINAL .COMPLEX 28 14 April 09, 2022 12:00am 10 mcg vaginally [...] 2 sprays each nostril daily FLUTICASONE PROPIONATE [id number] Caridad A Malys, DO 1.5 ml fremanezumab-vfrm 150 mg/ml auto-injector (5 sources) Start: 04-03-2021 End: 08-19-2021 Fremanezumab-Vfrm (Ajovy Autoinjector) 225 mg/1.5 mL auto-injector Discontinued 225 mg SC EVERY MONTH April 03, 2021 1:00am August 19, 2021 9:07am indomethacin 50 mg oral capsule (12 sources) Nonsteroidal Anti-inflammatory Drug Start: 05-30-2015 End: 06-20-2015 take 1 capsule by mouth three times daily INDOMETHACIN 50 MG CAPS 1 po TID INDOMETHACIN [id number] Caridad Edmondson DO lisinopril 10 mg oral tablet (18 sources) Angiotensin Converting Enzyme Inhibitor Start: 03-20-2015 End: 05-04-2015 take 1 tablet by mouth once daily LISINOPRIL 10 MG TABS 1 po daily LISINOPRIL [id number] Caridad Edmondson DO magnesium oxide 500 mg oral tablet (14 sources) Start: 04-03-2021 End: 10-13-2024 take 1 tablet by mouth once daily Magnesium Oxide 500 mg tablet Discontinued 500 mg PO DAILY April 03, 2021 1:00am October 13, 2024 3:16pm Start: 10-31-2020 take 1 tablet by buddy once daily magnesium oxide (MAG-OX) 400 mg (241.3 mg magnesium) tablet Take 1 tablet by mouth once daily. 30 tablet 5 10/31/2020 Active Comment on above: Take 1 tablet by buddy once daily. phentermine hydrochloride 30 mg oral capsule (16 sources) Sympathomimetic Amine Anorectic Start: 05-30-19 16 End: 09-24-19 17 take 1 capsule by mouth once daily PHENTERMINE HCL 30 MG CAPS 1 po daily PHENTERMINE HCL [id number] Treasure Mendoza DC take 1 capsule by mouth once wale ly Phentermine HCl 37.5 mg capsule Take 37.5 mg by mouth once daily. Active 24 hr propranolol hydrochloride 80 mg extended release oral capsule (12 sources) beta-Adrenergic Leno Start: 05-04-2015 End: 06-20-2015 take 1 capsule by mouth once daily PROPRANOLOL HCL ER 80 MG [id number] 1 po daily PROPRANOLOL HCL [id number] Caridad Edmondson DO riboflavin 400 mg oral tablet (14 sources) Start: 04-03-2021 End: 10-13-2024 take 1 tablet by mouth once daily Riboflavin (Vitamin B2) 400 mg tablet Discontinued 400 mg PO DAILY April 03, 2021 1:00am October 13, 2024 3:16pm Start: 01-03-2020 take 2 tablets by mo uth twice daily riboflavin, vitamin B2, (VITAMIN B-2) 100 mg tab Take 2 tablets by mouth twice daily. 01/03/2020 Active Comment on above: Take 2 tablets by mo uth twice daily. topiramate 100 mg oral tablet (20 sources) Anti-epileptic Agent Start: 04-03-2021 End: 10-13-2024 take 1 tablet by mouth once daily Topiramate 100 mg tablet Discontinued 100 mg PO DAILY April 03, 2021 1:00am October 13, 2024 3:16pm Start: 07-17-2014 take 1 tablet by buddy th once daily at bedtime TOPIRAMATE 50 MG TABS 1 po QHS TOPIRAMATE [id number] Caridad Edmondson DO Start: 07-17-2014 End: 03-13-2015 take 1 tablet by mouth once daily at bedtime TOPIRAMATE 100 MG TABS 1 po at QHS TOPIRAMATE [id number] Caridad Edmondson DO Comment on above: Take 1 tablet by buddy th daily at bedtime. ubidecarenone 75 mg oral capsule (14 sources) Start: 04-03-2021 End: 10-13-2024 Coenzyme Q10 (Ultra Coq10) 75 mg capsule Discontinued 75 mg PO DAILY April 03, 2021 1:00am October 13, 2024 3:16pm Start: 01-03-2020 take 1 capsule by mo uth twice daily Coenzyme Q10 150 mg cap Take 1 capsule by mouth twice daily. 01/03/2020 Active Comment on above: Take 1 capsule by mo uth twice daily. verapamil hydrochloride 80 mg oral tablet (20 sources) Calcium Channel Leno Start: 08-08-2014 End: 05-04-2015 VERAPAMIL HCL 80 MG TABS 1 po at bedtime x 3 days then BID VERAPAMIL HCL [id number] Caridad A Carlos EnriquearielleDO Start: 08-08-2014 take 1 tablet by buddy th twice daily VERAPAMIL HCL 80 MG TABS 1 po BID VERAPAMIL HCL [id number] Caridad Edmondson DO Problems Active Problems Problem Classification Problem Date Documented Date Episodic/Chronic Disorders of lipid metabolism (1 source) Hyperlipidemia, unspecified; Translations: [Hyperlipidemia, unspecified] Onset: 12-28-2024 Chronic Headache, including migraine (15 sources) Chronic headache disorder; Translations: [Headache] Onset: 07-17-2014 07-17-2014 Episodic Headache; including migraine (1 source) Migraine without aura, not refractory ; Translations: [Migraine without aura, not intractable, without status migrainosus] Chronic Menopausal disorders (16 sources) Atrophic vaginitis; Translations: [Postmenopausal atrophic vaginitis] Onset: 07-07-2012 Chronic Comment on above: yuvafem Menopausal disorders (5 sources) Drug therapy finding; Translations: [Hormone replacement therapy] 10-13-2024 Episodic Comment on above: estrogen/testosteron e pellets and prometrium daily per [employer] Mood disorders (9 sources) Depressive disorder; Translations: [Depression] Onset: 12-13-2013 12-13-2013 Chronic Nonmalignant breast conditions (8 sources) Cyst of breast; Translations: [Solitary cyst of unspecified breast] Onset: 12-16-2024 11-07-2024 Episodic Comment on above: cluster of cysts rig ht breast Nutritional deficiencies (9 sources) Vitamin D deficiency; Translations: [Vitamin D deficiency, unspecified] Onset: 05-25-2013 05-25-2013 Chronic Other nutritional; endocrine; and metabolic disorders (6 sources) Obesity; Translations: [Obesity, unspecified] Onset: 06-20-2015 2015 Chronic Other screening for suspected conditions (not mental disorders or infectious disease) (4 sources) Patient encounter status; Translations: [Encounter for screening mammogram for malignant neoplasm of breast] Onset: 10-13-2024 12-14-2024 Episodic Residual codes; unclassified (1 source) Family history of breast cancer; Translations: [Family history of malignant neoplasm of breast] 12-14-2024 Episodic Residual codes; unclassified (1 source) Family history of ischemic heart disease and other diseases of the circulatory system; Translations: [Family history of ischemic heart disease and other diseases of the circulatory system] Onset: 12-28-2024 Episodic Spondylosis; intervertebral disc disorders; other back problems (15 sources) Other cervical disc displacement, unspecified cervical [...] Date Documented Da te Episodic/Chronic Mood disorders (9 sources) Mood swings; Translations: [Emotional lability] Onset: [...] Test Name Value Interpretation Reference Range Facility Coronary Angiography CTon Coronary Angiography [facility] Imaging Services [address] [place] [address] 01/05/25 0842 MR#: [id number] Acct: [id number] Name: VICKI KENNEY Rep #: [id number] : 1960 64 From: Jim Kelly MD PCP: Dr. Caridad Edmondson, DO Status:REG REF Y Location: CT Calcium Scoring Date of Study:: 12/28/24 Indications Indications: Family history hyperlipidemia Coronary Calcium Scoring: High-resolution Computed Tomographic imaging of the chest was performed on [12/28/2024], with particular attention paid to the coronary arteries. Images from the examination were analyzed for the presence and extent of coronary artery calcification , using coronary calcium quantification software. The patient tolerated the procedure well and there were no complications. The results of the coronary calcification analysis are provided below. Findings Coronary Artery Left Main (LM): 0 Left Anterior Descending (LAD): 0 Left Circumflex (LCX): 0 Right Coronary Artery (RCA): 13.3 Total Agatston Score: 13.3 Percentile Rankin-75 Calcium Scoring Interpretation: Different methods to categorize the overall amount of coronary plaque. Overall amount CAC SIS Visual of coronary plaque P1 Mild -100 <2 1-2 vessels with mild amount of plaque P2 Moderate 101-300 3-4 1-2 vessels with moderate amount, 3 vessels with mild amount of plaque P3 Severe 301-999 5-7 3 vessels with moderate amount, 1 vessel with severe amount of plaque P4 Extensive >1000 >8 2-3 vessels with severe amount of plaque Calcium Score: Mild: 1-2 vessels w/mild amount of plaque Conclusion: Mild single-vessel atherosclerotic plaquing noted. 01/05/25 0843 Date Jim Kelly MD Cosigner Signature (if applicable): Date CC: Dr. Jim Kelly MD; Dr. Caridad Edmondson, DO Signed [facility] 12-30-2024 [facility] Telephone (GENSME) -- VICKI KENNEY ([id number]) 1960 F Date Time Provider Department 12/30/24 TERRI MUÑOZ During your visit today, we recorded the following information about you: Karen Ram MD 01/02/2025 11:44 AM Signed I have reviewed and approved the localization plan. Images dated 12/16/2024 are annotated. Recommended guidance modality: US/stereo. Radiologist: Karen Ram MD Allergies As of Date: 12/30/2024 (No Known Allergies) Date Reviewed: 12/28/2024 Reviewed by: Emily Srinivasan LPN - Fully Assessed Reason for Visit: Breast Localization [4188] Cmt: LOCALIZATION IMAGE REVIEW (Please do NOT submit until entire workup complete) (if > 3 reflectors to be placed in one breast, please review with radiologist) Vicki Kenney [id number] 1960 WORK- UP COMPLETE? Yes Order Placed Yes Right - Site 1 Location 11:30-12 Clip Shape heart Clip Migration No Pathology atypical lobular hyperplasia Preferred Localization alanna * If clip migrated, please review with radiologist This Form Has Been Completed B Prescriptions as of 01/02/2025 - Phentermine HCl 37.5 mg capsule Take 37.5 mg by mouth once daily. - progesterone micronized (PROMETRIUM) 200 mg capsule Take 200 mg by mouth once daily. - Lactobacillus acidophilus (PROBIOTIC ACIDOPHILUS PO) Take 1 capsule by mouth once daily. - eletriptan (RELPAX) 40 mg tablet Take 1 tablet by mouth as needed (for migraine headache). take 1 at onset of migraine, may repeat in 2 hours if necessary. No more than 2 pills in 24 hours or 2 days/week - divalproex ER (DEPAKOTE ER) 500 mg 24 hr tablet take 2 PO at bedtime for 5 days then 1 PO at bedtime for 5 days, then stop. - naproxen (NAPROSYN) 500 mg tablet take [...] hr tablet Problem List As Of Date 12/30/2024 Noted Resolved HEADACHE [R51] Climacteric [N95.1] 07/07/2012 Herniated disc [WCM9022] 05/24/2013 Vitamin D deficiency [E55.9] 05/25/2013 Mood swings [R45.86] 06/15/2013 Depression [F32.A] 12/13/2013 Encounter Status:Closed by KAREN RAM on 01/02/25 [facility] CNOVon 12-28-2024 CNOV Office Visit (GENSWS ) -- VICKI KENNEY ([id number]) 1960 F Date Time Provider Department 12/28/24 2:30 PM TERRI MUÑOZ GENSWS During your visit today, we recorded the following information about you: Temperature 97.5 degrees Terri Muñoz, DO 12/28/2024 3:00 PM Signed We discussed your recent biopsy results and the next steps for treatment: - Your pathology results showed atypical lobular hyperplasia, which is a higher-risk lesion but not cancer. To reduce the risk of progression, I recommend excising the lesion. - The lesion is located in your right breast at the 11:30 to 12:00 position, 5 cm from the nipple, and measures 0.7 x 0.7 x 0.4 cm. We discussed the excision procedure: - Radiology will place a [employer] marker in the lesion site before surgery. This marker will help guide the excision and ensure we remove the correct tissue. The radiology department will call you to schedule this placement, which can occur anytime before the surgery. - The surgery will be a same-day procedure performed at [facility]. You will need a ride to and from the surgery, as you will receive sedation. - During the procedure, I will make a small incision around the areola to remove the lesion and ensure clear margins. The tissue will be sent to pathology for further evaluation. - I will close the incision with absorbable stitches under the skin, and skin glue will be applied on top. You will be provided with a surgical bra that clips in the front, or you may use one you already own. We discussed post-operative care and restrictions: - Wear a bra that clips in the front, morning and night, for the first 5 days after surgery to support the breast tissue and minimize fluid collection. - Avoid heavy lifting with the affected arm for 1-2 weeks, depending on how you feel and how you heal. - Do not submerge the incision in water (e.g., pools, hot tubs, or bathtubs) for 2 weeks. Showers are okay. - The procedure itself will take about 30-45 minutes, but you should plan for several hours at the facility, including preparation and recovery time. Next steps: - I have placed the order for the [employer] marker placement. Radiology will contact you to schedule this. - Once the marker placement is scheduled, our central scheduler, Rico, will call you to arrange the surgery date. We aim to complete the procedure within the next month. If you have any additional questions or concerns, please call our office using the number at the top of your paperwork. Terri Muñoz DO 12/28/2024 4:30 PM Signed GENERAL SURGERY FOLLOW UP Recording using [employer] software for draft documentation of the visit was discussed with the patient/authorized healthcare sales representative; all questions welcomed and answered. 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 Vicki recently underwent a breast biopsy, which revealed atypical lobular hyperplasia in the right breast at the 11:30 to 12:00 position, 5 cm from the nipple. The lesion measures 0.7 cm x 0.7 cm x 0.4 cm. She is accompanied by a family member and is seeking further information and next steps regarding the diagnosis. 10 point review of systems completed and is otherwise negative On exam: 12/28/24 1429 Temp: 36.4 ?C (97.5 ?F) TempSrc: Temporal Gen: NAD, well-nourished Lungs: unlabored breathing, bilateral chest rise Breast: Right breast biopsy site healing well. Suture removed. No signs of infection. Tests - Right Breast Core Needle Biopsy: Pathology revealed a benign lesion with atypical lobular hyperplasia (higher risk lesion) Imaging - Right Breast Ultrasound: Lesion measuring 0.7 ? 0.7 ? 0.4 cm at the 11:30 to 12:00 position, 5 cm from the nipple Assessment ASSESSMENT Atypical lobular hyperplasia (alh) of right breast (primary encounter diagnosis) RECOMMENDATION 1. Atypical lobular hyperplasia (ALH) of right breast (N60.91) Pathology from core biopsy of right breast lesion (11:30-12:00 position, 5 cm from nipple, measuring 0.7 x 0.7 x 0.4 cm) confirmed atypical lobular hyperplasia, a benign but higher-risk lesion. - Order [employer] marker placement by radiology prior to surgery. - Schedule excisional biopsy at [facility]; same-day procedure under sedation. - Educated patient on procedure steps, including marker placement, excision with 1-2 mm margin, intraoperative radiology confirmation, and pathology review. - Discussed risks and benefits, including potential for positive margins and need for re-excision, and rationale for excision to reduce future malignancy risk. - Instructed patient to wear a supportive bra day and night for 5 days post-op, avoid heavy lifting for 1-2 weeks, and avoid submerging inci (more content not included)... [facility] Limited Chest CT Cardiac Onl yon 12-28-[address] Cardiac Only [facility] Imaging Services [address] [place] [address] [id number] Cardiac Only MR#: [id number] Acct: [id number] Name: VICKI KENNEY Rep #: [id number] : 1960 F 64 From: Barry Davies PCP: Dr. Caridad Edmondson, Status: REG REF Study: Limited Chest CT Cardiac Only Date of Exam: Exam# [id number] Ordering Dr: Caridad Edmondson DO PROCEDURE: LIMITED CHEST CT CARDIAC ONLY 12/28/2024 REASON FOR EXAM: FAM HX OF HEART DISEASE TECHNIQUE: Procedure Code: [id number] Modality: CT Procedure: LIMITED CHEST CT CARDIAC ONLY CT performed for coronary artery calcium scoring. One or more dose reduction techniques were used (e.g., Automated exposure control, adjustment of the mA and/or kV according to patient size, use of iterative reconstruction technique). RADIATION DOSE SUMMARY: CTDlvol: 12.19 mGy DLP: 219.42 mGycm COMPARISON: None. CT/Limited Chest CT Cardiac Only IMPRESSION: Limited imaging of the lungs demonstrates no acute process. No pleural effusion or pneumothorax is seen in visualized areas. No adenopathy is noted. The visualized upper abdomen demonstrates no significant abnormality. Reading Location: [place] [address] CC: Dr. Caridad Edmondson DO Sample Washer: Signed [facility] Pathology biopsy report Daniel (Tiss)Ordered By: Khadijah Sharp on 12-21-2024 Case Report Surgical Pathology R eport Case: [id number] Authorizing Provider: Terri Muñoz DO Collected: 12/14/2024 04:52 PM Ordering Location: General Surgery Received: 12/14/2024 05:05 PM Pathologist: Khadijah Sharp MD Specimen: Breast, Right, Core Biopsy [facility] Work Phone: Clinical History j9hfhZUnUMAlu4iiWQEm bGFuZz YdJtQiBiPgGwp0VAUqbhE1Mmu5 FIQwDSbccN9dKGDnDZwaY7zizp AknKApETAbo6Ljrc8eMZSweFGm o6H4OXOsQj8uGDGuqjYjThThWS TxOIEwWJfvpS0cTPOrMZniV4dl ceUwrJMkXNOlXLn4aG2pyRdxrA 5cZjBcZnMyMCBSaWdodCBicmVh d2LjT6nlyZceJHwig6ejhnetMZ IgfQ== [facility] Work Phone: Diagnosis Comment k0owqUJwHWBmyXAoRXFn Mlxhbn UoAIVmkXAwN3SfwjtkUDryRC3e YR5sjElubWKptOSqRQCzGzCxu4 [id number] wWdrJ85pm0A0IyjwE2msFWTqDC boOJXpWEphkCSmSPa7XJXoeJKz mzCjAnKtKHTeoXEjcHT4HNSeST 7ovrpsAVtcLOghPHAubgH5TAGs vVTxS6SrLYWvQC0zisrfPJV2YQ rgJQPcZHI4OmXiIYLhx7Fuopj0 MjBccGFyZFxwbGFpblxmczIwIE DiDGPeRVzunDPan5ydk8WaG3tm yTjhKJkud4AwyA9fHc5pEXZkA6 XycGZhqY3ehEItykQkKBVrcmYw wK7ahVabFFM0mTTiO2VaBXjwVg VsYXIgaHlwZXJwbGFzaWEsIGNv txPmr9IqkwAfx0r9jHO8iNwfQU KhJPkmg5Jkyo0pTNWwoJy6oQVj YHqctE1ebM7tyCsrfQ6qvAWweD KnnYUuzSCjkgWkr6ScUXERULZq A1WjHVneBtQwHTWIZO2uEIYdrd WuP5i3OkR8ULOjR9HwJHxjleW9 e0XgTIwrSQIdMIClnqWuyGO8gR 6tNX7lSUSqoMAwmMR0GFWxCBng IFRoZSBDSzcvMTggaXMgZXhwcm Oqe9JkNIgzWQIfOTKjeX5zhdAd IQEojINmPJsezB3wCOQjFXWrTk JtNY2xNTHBQI6pOWKht47ar02h ilHrUZTke6sktAfdCXMePYVvkn WeZY3yOY42s5CliDPmUZafEFwx J9BafZPudJtse7VlpD07uFJ1fP EzcSLeyZ6xOzFvpQPpjL== [facility] Work Phone: Disclaimer y6hrjYUjWODhb9ngXNZt bGFuZz EwMzNcZnRuYmpcdWMxIHtccnRm INmvoYqwWRWlYYUil3lpp0xeoH JvZRSlt9izf7SayFQbxFVpORcj uMIfdrDqgg79nWJ2kW03WS8lIB FtNnN4VTFpmrI5Piw2SNFxFZPz rVQjJ864t1pif7xuwcVzzPP4RY FxVOSmW7WfBW2wPCUafDEfL10y yEUyDBX8XHRtUOHzsYHvKGXvRB P9ENRnpDMuO3ebIJFgOK6kggfq NNtbPLofMODdjDO5FJXfnYGtS5 QrCYCoEGtvZRSzvxh3IfSnYh8s sYDjcRgjYDrtB2vjwR3tHwR9MO dkP2irpB9qXMr3QAekTPFfyDA5 pyZ4KWEbfGUdA3HocQ1aVABzRR 9heuf1s4ysUOC3TOmuTKDyKcN5 fnT9GDEowLNvTSjwnEThoxynCL IeWFMhC3DiYHdcFu1kCZKbpceq TYR6GRszoFBiRJCnd7JvOUxAWK lmPOfbX1gylT6bvhoafFPyNDTt VZCmONKOYFOif4AgDM1hCFPkzA TfHGK2GJSjv4TiT8Qwz0CrlO3k fU1laMqacL1nvUSuyXYmqOzzzH 8lmJ8zCfj9n2Kwc4HiojKuSHAw AKIxyIZbnC5hML4qUuOduz9wmU H1MNu3VsVjPGo1EALsw59hrHXe gVXqeSX8PWAhNSLzRRPxoIRerU yqYJPzTjekbCuzOIWwolRuca0b lddtmFJqu8RrdV8wvNN7qHDnwS 4gdGhlIENsZXZlbGFuZCBDbGlu hOPhXFImYLP2rLYqgEOwKgCGSX Cvs7scD8vgRD9mMZgyXq3nGFUe hdvxBZDtaGPbsoOcRD6lhN7cF7 SopHVxWHuef4XmbIBfIDHGr2Wm fmCMRT7aesMbYZfsr6ZxlVFnMO NIcN4auDBxYIsis7QvnyKYc4Su zPZobDauGMSmP8mzQB1ebGr4LJ wsIEluZGlhbiBSaXZlciBNZWRp D4TeFRFyzgPyrxlcFDBsiYjkUD ooWIn3sGLCt9K3kORWr0SszPCy mUkaz5ZsVT7pb49wJU1snFt2KY wpIGluIGEgbWFubmVyIGNvbnNp y6MwnzQbz2w3eMTWWDePXQJrpR BvjnYbCF12ul7gI80pRH7kBF0u abEcc4OebNqdj6PdwKWewGZvlX A0TW3exRPlQMUwYIKsVV8wR8so NFXeYDKhubEyvJEad0IoMRVuoL O3cFOkPiDTEeHYwHQjJ3naotTi ZB3aEBJbpL4rNzJRQRFuwyDeWT 68NS6zPREqpIseaO4ckCLcbkDi LNVnx7XqhA3lrMBXBPRzN0clYU VrksQiNZg1jPQ4WUTawN0oCYAq Z3pLKHRtnfDxmDGlnPVgUKSjnD 9odWCiFh5yzFMhmJmuKBPibLUh ONikfHvvlAKflZcrYw6wMDnuj5 IzpQOnyKRuSBQtZUPxBQNjLn1e ZBAxjF2mX9UnCZY2coKqd3JpPe VCiVHiJEAifE33iYWocu61YSPk VBVtV0TcNVMnYIJcTFuzxiIovR tiPZWvf38krOPhspRga3AvxxYy NQYuR0dqEVBrg9f6fLHyGCGkXV EkATyboYh6NYSjm420ts8fbyPn cDMivlKdmLCrx3BtsAJ9ZOa5Rv oeSAY5uB== [facility] Work Phone: FINAL DIAGNOSIS z3jnlAXhXMWbqRBxMUOb Mlxhbn NyMCKkmUGqN9SiyjhrSVfyBH4r NF9wbQpkuPBltDEqDVSfGhIoe8 abh600cCBqg0iiZWKVcqvmsVd5 pGatK23cf3Y6OcxtX11nqCLjVC C8ODCuYXJcbDHvQVAgOUZ4BWKd oCQkG9xqMZDrJU4hhcfwYUrcQF ztKZFkoTC4IXRvjTNoK4TlWBPh KZbyLIAdeym1PlSaLg5vdQHqfK cyMFxwYXJkXHBsYWluXGZzMjAg VD5pFxgdkCQwSfNtUVT4HIEmw4 AhWVVtt4ZopAveeFUjWP3nGBE1 sPqeBGvunH1vpZhfnwQzbVWcoc ZeLNCwUA5uJMDrQSVPg74eKY01 IobaKLHuKRTAFRYjs1XbebzrKR LoF8MrodEfA4fxhZatZS5yLFCj xCNcBEF8G8OxyLVmjMUxfvDtRZ DsYA0edXZhnF== [facility] Work Phone: Gross Description g4zspGRcQMPncEJVDNTs MDVcYW 8tsIfeiTv6rYslTSVnznR6nVCz FBbyz8zbASU3f5wmdcEOEzrjFY BjFJubRBXqhbybFrK4AQoiCEQw ttawTTv6AUetFBUxxHY6ZMFmbK TuF8VjVPItKK0tvsc7CVT6PLac IULoQsE7YKNjHTx3ZVYmnoY9Pz w6ULWyQTDclZGsu8K9SAdln4hp t0WwTLVsVHc9oK5IIjqeNVH1TZ RYCqxxKacsrRujc8VazSDwGFAz IFxcaWQgNTEwMDAgXFxkYiBPVl LqVhBpNDVmNTs8NPstDFo8URb2 YBBTDRHrRkS8EhbhANG5QIc0VG AyFH3tAVqqyVUfGPleRkluSAex G169DJjkAELxS4RqC1JmMNciNc XqNIkhOOQcYFEhNMpoYQOnP1XL WLJmERJjLhM8BIA2KyF8IBz0TR WNBmUlBaAjCiJ4GaN3DDhfUTl0 IUu3ELsLSdQtWfYcZeoiKjB0Jd Y3KXX2UtAsYATaYpTaACUdEUNi PQmyuQAbCZ3zfQftKVPyKH7QUS AtTBpjYXrbvayyVJPrAkWxOG7l EuShELY1NYEPsDjioJhlY33zTF EUqG3zv1adaIGuO4zgJfZpKabu YXIgDQpccGFyZCANClxwbGFpbl uchUJgiAbbKE1aSKydijKfQCNk zHPHUVV4HX7rDYVAVzfhsWPnHS IgDQpcZnMyMCBSZWNlaXZlZCBp vnGbb9BwTNojqkRqMXOrbVJlLK VsSJz5KPYsWYEmIuqyxpqnsDDp GbYdGAG2UNI4KrPwHZpwWIInNJ ZaKO84mCQzyMdlGCFlD26pouKa TH0jWSP3kXudNVKoJ3HeJGOdd9 G2RYDlO3sxYPujmQgpHsK9hmZg UwCdeVQcTdFilYQcLmAnC23qAF Tpcq29MQdxi3xfRL0yMT2fVPUl y79ilAXyy44aaLY2FQ9tfH8eIM cmTTMrQIXgsXPpUCuzvuHmCC8r rtWhKGVww07twInqYMWtgNoqwd RzHKNxREW6NCAwWH0iLCymWsiz JyUfFN0qN84jtKqxESHnyUWsDM Y0DQK3kWCvf9DgU5duAN7wr5Bj KYJaRRKaMNEphdAhn7CoZJzkuu MnaBYxlcV2bxQdETBvImsrBIM7 aL9jYlLZb8OtaMz8PAW3Fp9zmY KnBUGcdkCuk1ErKEhurqLimpYw sbJxK0Nlh9R7dEDaGGdiDFTgZL rgsIPzVO6QANxiGBYvzTT5PYD4 IKKkEDE5CQWwEuE5FVHTUOApxf YAMbmfTWAxKJkxi8BxZAjmkXhh OHHgUjRsIFfCxa3rtrJggFQtrS 8qaTmscdYzTFAnw2FwGGSoGIEq C7uslwZnUU2xNMMsvC1gEnLXYT luIExhYiwgOTUwMCBFdWNsaWQg LSCiFwYFXRTvYKpoFWonA4nysh OtNZ9qIWIEBDN1DUQ6DUPZNcgo lXnrAbPlkISeNtH9UBVqjNYgVP L7DD1ifTllUYNjT9AhS8WtloM0 BBJereMXMczoFCJzBS7YNGQoNn QgDQp9 [facility] Work Phone: Performing Lab c0wsdMQjRCRaaZIpMWZj Mlxhbn CgKDJmuYCdD9InnqnhSEkfLD9v SX5spIxxuCVvwJFlZBIoFbPfx0 dmx795fXJib9yzLPDTskfsfRg3 dMleH58gf2Z8PyblW85zaOSqZZ F6KVGnNQPicSOfDQUbNSP9HYMl eWFbQ3xhLEPfEP2enxvdRCiiYH xvZTXcpJO3QIFabGJjI7LkETJz KEzuYWHjrfo1JjUyTy1ewLZojH iiRJjpN1qudO3aYeX1RCprH9ei yQ6lIRc6IWhzJXOmuXJ9kaC5AB HbaQJqV4BqcE1cKICpBK2dlby4 r7cqNOJ9YNjrYCRiQnT9oiA5BI BccGFyZFxwbGFpblxmczIwIERp FWjco4N1pKHvjX95NBOikqL5PS Oqv36tyHJhId0hlRNuXTD7AaPB tQmfS8Ndb6XbZX3oqRh4RUxoDK Oih4BjwV1prXplVup7FCOUNJrd rYXeZUJKv2IpOEKYJHrchCOdUS UVIMqldBDoJH0OHCO2LWS3EBXd P5zOMZIrPaAUOWDqRcb7EUdzEL JuAFYmrjIVLGKpbjV8v1A3XBRw daCkuI4wUgGHmNJpvrQZPIUlcm RlciwgTURccGFyfQ== [facility] Work Phone: [facility] Work Phone: HISTORY PHYSICALon HISTORY PHYSICAL HNO ID: [id number] Author: TERRI MUÑOZ, DO Service: ? Author Type: Physician Type: H&P Filed: 12/27/2024 09:56 Note Text: Breast Services- History and Physical SERVICE DATE: 12/16/2024 REASON FOR TODAY'S VISIT: Right breast lesion SUBJECTIVE: HISTORY of PRESENT ILLNESS: Vicki Kenney is a 64-year-old female presenting for evaluation of a right breast abnormality identified on recent imaging. Vicki recently underwent a screening mammogram at [place], which revealed an abnormality in the right breast. Subsequent diagnostic mammogram and ultrasound identified a cluster of cysts located between 11:30 and 12:00 o'clock, approximately 5 cm from the nipple. This is the first time an abnormality has been detected on her breast imaging. She has been receiving regular mammograms at [facility], with the last normal imaging performed in 2013. She denies any previous masses, lesions, or abnormalities in her breasts. Vicki expresses a preference for a biopsy over waiting 6 months for follow-up imaging, citing anxiety about the potential for malignancy. She has no family history of breast or ovarian issues and denies any known family history of breast cysts. She has been on hormone replacement therapy since February of the previous year. She denies lightheadedness, dizziness, changes in vision or hearing, chest pain, dyspnea, cough, wheezing, abdominal pain, nausea, emesis, changes in bowel habits, changes in urination, numbness or tingling in her hands or feet, new skin lesions, or rashes. PAST MEDICAL HISTORY: PAST MEDICAL HISTORY Diagnosis Date Excessive menses Headache(784.0) MIGRAINES cyclic with aura Irregular menses Kidney stone PAST SURGICAL HISTORY: PAST SURGICAL HISTORY Procedure Laterality Date ANES HRNA RPR UPR ABD LMBRANDVENTRAL HERNIAANDDEHISC 1993 herniated disc x1 ANES HRNA RPR UPR ABD LMBRANDVENTRAL HERNIAANDDEHISC 1995 herniated disc x2 DELIVERY ONLY TIMES TWO 2012 PAST SURGICAL HISTORY OF laser surgery both eyes FAMILY HISTORY: FAMILY HISTORY Problem Relation Age of Onset Cancer Mother ; colon Hypertension Mother Pancreatic Cancer Mother Lymphoma Mother Coronary Artery Disease Father R/T CO SOCIAL HISTORY: 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 progesterone micronized (PROMETRIUM) 200 mg capsule Take 200 mg by mouth once daily. Lactobacillus acidophilus (PROBIOTIC ACIDOPHILUS PO) Take by mouth. eletriptan (RELPAX) 40 mg tablet Take 1 tablet by mouth as needed (for migraine headache). take 1 at onset of migraine, may repeat in 2 hours if necessary. No more than 2 pills in 24 hours or 2 days/week naproxen (NAPROSYN) 500 mg tablet take 1 tablet by mouth two to three times a day if needed for headache - MAX OF 10 DAYS PER MONTH divalproex ER (DEPAKOTE ER) 500 mg 24 hr tablet take 2 PO at bedtime for 5 days then 1 PO at bedtime for 5 days, then stop. magnesium oxide (MAG-OX) 400 mg (241.3 mg magnesium) tablet Take 1 tablet by mouth once daily. riboflavin, vitamin B2, (VITAMIN B-2) 100 mg tab Take 2 tablets by mouth twice daily. Coenzyme Q10 150 mg cap Take 1 capsule by mouth twice daily. TENS unit and electrodes (CEFALY) cmpk 1 Package as needed (for migraine headache). buPROPion XL (WELLBUTRIN XL) 300 mg 24 hr tablet ALLERGIES: ALLERGIES No Known Allergies REVIEW OF SYSTEMS: Eyes: (-) vision changes Ears/Nose/Mouth/Throat: (-) hearing changes Breast: (-) palpable breast mass, (-) breast tenderness Neurological: (-) extremity numbness, (-) extremity tingling OBJECTIVE: PHYSICAL EXAM: BP 126/82 (BP Position: Sitting) Pulse 117 Temp 37.2 ?C (98.9 ?F) Wt 75.3 kg (166 lb) LMP 04/30/2012 SpO2 97% BMI 29.41 kg/m? Body mass index is 29.41 kg/m?. General: No acute distress. Breast: No dimpling or retraction of skin bilaterally; no palpable masses or abnormalities; no nipple discharge; no axillary lymphadenopathy; bedside ultrasound performed, cysts visualized. IMAGING: Screening Mammogram - performed at OSH and report not available in EMR Diagnostic Mammogram 11/02/2024 ([facility]) Tissue Density: The breasts are heterogeneously dense, which may obscure small masses. Follow up examination performed for the asymmetry in the right breast seen on examination on 10/26/2024. On the present examination, the asymmetry is the superior right breast at middle depth partially effaces Ultrasound 11/02/2024 ([facility]) Ultrasound performed of the superior right breast. There is a cyst cluster in the right breast at 11:30-12 o'clock, 5cm from the nipple measuring 0.7 x 0.7 x 0.4cm. This is probable correlat (more content not included)... Normal [facility] DIAGNOSTIC RTon 12-17-19 [facility] DIAGNOSTIC RT * * *Final Report* * * DATE OF EXAM: Dec 16 2024 11:52AM [id number] - [facility] DIAGNOSTIC RT / PROCEDURE REASON: Breast cyst, right * * * * Physician Interpretation * * * * RESULT: [facility] [address] [place] [address] #[id number] - [facility] DIAGNOSTIC RT HISTORY: 64 year-old patient presents for diagnostic evaluation of the finding(s) described on prior mammogram and post-ultrasound guided clip placement in the right breast. Patient states no personal history of breast cancer. The patient has a family history of ovarian cancer. COMPARISON STUDIES: The present examination has been compared to prior imaging studies dated 04/17/2021 (mammogram), 04/18/2022 (mammogram), 10/26/2024 (mammogram) and 11/02/2024 (mammogram). MAMMOGRAM TECHNIQUE: The study was acquired using full field digital technology and interpreted from soft copy. MAMMOGRAM FINDINGS: The breast is heterogeneously dense, which may obscure small masses. There is a biopsy marker in the upper outer quadrant of the right breast. IMPRESSION: Biopsy marker in the upper outer quadrant of the right breast shows a successful clip placement. Mammogram BI-RADS: Post-procedure mammogram for marker placement RISK: Based on the Tyrer-Cuzick (TC) risk assessment model, this patient has a 12.7% lifetime risk of developing breast cancer, meaning they are at average risk for developing breast cancer. However, this is only an estimate based on available history provided on the patient's questionnaire. We encourage all patients to talk with their providers about these results, further recommendations for managing breast health, and appropriate supplemental screening options if the patient has dense breast tissue. Interpreting Radiologist: Christina Hernandez M.D. Electronically signed on: 12/28/2024 Sample Washer: JEAN PIERRE Transcribe Date/Time: Dec 16 2024 11:46A Dictated by: CHRISTINA HERNANDEZ MD This examination was interpreted and the report reviewed and electronically signed by: CHRISTINA HERNANDEZ MD on Dec 28 2024 3:26PM EST [id number] [facility] CNOVon 12-14-2024 CNOV Office Visit (GENSWS ) -- VICKI KENNEY ([id number]) 1960 F Date Time Provider Department 12/14/24 3:30 PM TERRI MUÑOZ During your visit today, we recorded the following information about you: Temperature Pulse Blood pressure Weight 98.9 degrees 117/minute 126/82 75.3 kg Terri Muñoz DO 12/27/2024 9:56 AM Signed BEDSIDE PROCEDURE NOTE PROCEDURE DATE: December 14, 2024 PROCEDURE START TIME: 4:08PM PRIMARY PROCEDURALIST: Terri Muñoz DO MAJOR GIFTS MANAGER(S): Emily Srinivasan LPN INFORMED CONSENT: Informed Consent obtained and on the chart UNIVERSAL PROTOCOL / SAFETY CHECKLIST Sign in Communication: Completed Time Out: Team Confirms the Correct Patient, Correct Procedure, Correct Site and Site Marking, Correct Position (if applicable), Prep and Dry Time (if applicable). Time: 04:08PM Affirmation of Time Out: YES Sign Out Discussion: Completed PROCEDURE: The patient was brought to the procedure room and positioned supine on the procedure table. A final timeout was performed. The right breast mass was identified with bedside ultrasound and marked. The right breast was prepped and draped in the usual sterile fashion. 10 cc of 1% lidocaine with epinephrine was injected for local under visualization. An 11 blade scalpel was used to create a stab incision. A 14 gauge core needle biopsy device was used to obtain 3 core needle biopsies. The biopsy specimens were placed in formalin and sent for pathology. Images were uploaded to the patient's electronic medical chart. An UltraClip Dual Trigger breast biopsy marker was then placed under ultrasound guidance. A 4-0 chromic suture was used to close the incision with one figure-of-8 suture. Hemostasis was maintained throughout the procedure. The wound was dressed with steri-strips and an Opsite dressing. The patient tolerated the procedure well with no immediate complications. A mammogram was ordered to confirm biopsy clip placement. All needle and instrument counts were correct. SIGNATURE: Terri Muñoz DO PATIENT NAME: Vicki Kenney DATE: December 14, 2024 TIME: 4:08 PM PAGER/CONTACT #: [phone] Emily Srinivasan LPN 12/27/2024 9:56 AM Signed UNIVERSAL PROTOCOL / SAFETY CHECKLIST Procedure to be Performed: Right breast ultrasound guided core needle biopsy Sign In: A Moment of CARE was completed. Appropriate PPE (Personal Protective Equipment) worn by all providers involved with the procedure. Special equipment not required. Patient/Surrogate Stated/Verified: Patient name, Date of , Relevant allergies, and The intended procedure Time Out: Relevant labs, photos, and/or imaging studies have been reviewed. Intended patient and procedure match the source document(s) (e.g. consent, HANDP, associated studies [imaging, pathology]) match the intended patient and procedure. Consent obtained and matches the intended procedure. Yes. Correct side/site has been marked and visible. Medications required for this procedure are verified. Fire risk assessed and is not applicable. Implants: Correct implant(s) confirmed including size and side. Expiration date(s) reviewed. Sign Out: Specimens are all correctly labeled and sent. All instruments, equipment, possible retained foreign bodies are accounted for. Yes. The post-procedure plan of care has been communicated to the patient or surrogate. DAVID Baldwin Caitlin C, 12/14/2024 4:56 PM Addendum We discussed your breast imaging and findings: - Your recent imaging, including a diagnostic mammogram and ultrasound, showed a cluster of cysts in the right breast, located between 11:30 and 12 o?clock, approximately 5 cm from the nipple. These appear benign based on the imaging characteristics. - You expressed a preference to proceed with a biopsy rather than waiting for 6-month follow-up imaging due to concerns about waiting. I understand and support this decision. - I performed a bedside ultrasound today to locate the area of concern, and we proceeded with an ultrasound-guided core needle biopsy of the right breast. - The procedure involved numbing the area, taking small tissue samples, and placing a biopsy clip at the site for future reference. - You may experience some bruising at the biopsy site, which should resolve within 1-2 weeks. - A single stitch was placed, and Steri-Strips were applied. The Steri-Strips will fall off on their own, and the stitch may dissolve or fall out before your follow-up. - Avoid submerging the biopsy site in water (e.g., swimming or baths) until it has healed. Showering is fine. We discussed follow-up care: - You will need a limited mammogram to confirm the placement of the biopsy clip. This can be done as a walk-in at our radiology department. You plan to complete this on Thursday before leaving (more content not included)... [facility] Pathology biopsy report Daniel (Tiss)on 12-14-2024 AP DISCLAIMER [facility] Comment on above: Order Comment: Isra iglesias Type: TISSUE SPECIMEN Ordering Facility: [facility] Address: [address] [place] [address] Result Comment: Jessica singer Developed Test (LDT) Disclaimer: Performance characteristics of immunohistochemical, immunofluorescent, and chromogenic in-situ hybridization tests have been determined by the performing laboratory within the [facility] Department of Pathology and Laboratory Medicine ([facility], [facility], [facility], [facility], [facility], [facility], or [facility]) in a manner consistent with CLIA requirements. One or more of these tests may not have been cleared or approved by the FDA. The [facility] Department of Pathology and Laboratory Medicine is regulated under CLIA as qualified to perform high-complexity testing. These tests are used for clinical purposes. These should not be regarded as investigational or for research. Positive and negative controls stain appropriately. Performed By: #### 6 6121-5 #### [facility] CLIA [id number] [address] [place] [address] STATES OF [facility] CLIA [id number] [address] [place] [address] OF [facility] CASE REPORT [facility] Comment on above: Order Comment: Isra iglesias Type: TISSUE SPECIMEN Ordering Facility: [facility] Address: [address] [place] [address] Result Comment: Surg ica Pathology Report Case: [id number] Authorizing Provider: Terri Muñoz DO Collected: 12/14/2024 04:52 PM Ordering Location: General Surgery Received: 12/14/2024 05:05 PM Pathologist: Khadijah Sharp MD Specimen: Breast, Right, Core Biopsy Performed By: #### 6 6121-5 #### [facility] CLIA [id number] [address] [place] [address] STATES OF [facility] CLIA [id number] [address] [place] [address] STATES OF [facility] CLINICAL HISTORY Right breast cystic lesion [facility] Comment on above: Order Comment: Speci men Type: TISSUE SPECIMEN Ordering Facility: [facility] Address: [address] [place] [address] Performed By: #### 6 6121-5 #### [facility] IA [id number] [address] [place] [address] STATES OF [facility] CLIA [id number] [address] [place] [address] STATES OF [facility] DIAGNOSIS COMMENT A. An immunohistoche mical stain for e-cadherin is negative in the atypical lobular hyperplasia, consistent with this diagnosis. A multiplex immunohistochemical stain for ADH5 (p63, CK5/14 and CK7/18) was used in the evaluation of this material. The CK7/18 is expressed in the luminal epithelium. The p63 and CK5/14 components show the presence of myoepithelial cells throughout the lesion. [facility] Comment on above: Order Comment: Speci men Type: TISSUE SPECIMEN Ordering Facility: [facility] Address: [address] [place] [address] Performed By: #### 6 6121-5 #### [facility] IA [id number] [address] [place] [address] OF [facility] CLIA [id number] [address] [place] [address] STATES OF [facility] FINAL DIAGNOSIS [facility] Comment on above: Order Comment: Speci men Type: TISSUE SPECIMEN Ordering Facility: [facility] Address: [address] [place] [address] Result Comment: A. R ight breast, core biopsy: - Atypical lobular hyperplasia. See Comment. - Adenosis, apocrine cyst, and usual ductal hyperplasia. at 1533 EDT Performed By: #### 6 6121-5 #### [facility] CLIA [id number] [address] [place] [address] OF [facility] CLIA [id number] [address] [place] [address] STATES OF [facility] Comment on above: Order Comment: Speci men Type: TISSUE SPECIMEN Ordering Facility: [facility] Address: [address] [place] [address] Result Comment: Diag nostic interpretation performed at: [facility], [address] [place] [address] CLIA# [id number] Manager Corporate Strategy: Delia Houser MD Performed By: #### 6 6121-5 #### [facility] CLIA [id number] [address] [place] [address] LAB CLIA [id number] [address] [place] [address] [facility] Comment on above: Order Comment: Speci men Type: TISSUE SPECIMEN Ordering Facility: [facility] Address: [address] [place] [address] Result Comment: A. B reast, Right, Core Biopsy Received in formalin labeled as ???right breast??? are multiple segments of cylindrical tissue aggregating to 2.6 x 0.6 x 0.2 cm, cantrell-yellow and of a soft consistency. The specimen was removed from the patient at 16: 52 on 12/14/2024. On the same day, the specimen was placed in formalin at an unspecified time. Totally submitted in formalin in one cassette. DL December 15, 2024 12:14 AM Gross examination performed at [facility], [address] [place] [address]. [place] [address] Performed By: #### 6 6121-5 #### [facility] CLIA [id number] [address] [id number] [place] [facility] CLIA [id number] 9500 [facility] [address]K [address] [place] US BREAST BIOPSY RIGHT (POC) SURG USE ONLYon 12-14-2024 [facility] Vitamin A, Retinolon 025 VIT A, RETINOL 56.9 ug/dL Normal 22.0-69.5 [facility] Comment on above: Result Comment: Refe rence intervals for vitamin A determined from [facility] internal studies. Individuals with vitamin A less than 20 ug/dL are considered vitamin A deficient and those with serum concentrations less than 10 ug/dL are considered severely deficient. This test was developed and its performance characteristics determined by [employer]. It has not been cleared or approved by the Food and Drug Administration. Performed at: [address] [id number] Service Specialist: Yanni Mckay MD, Phone: [phone] Performed By: #### L 501.6710, L503.0106, L506.1001, L500.4050, L500.4100, L3400.0920, L101.9900, L100.0100 #### [facility] [address] [place], [address] Absolute lymphocyte countOrd ered By: Caridad Edmondson on 11-29-2024 Lymphocytes Auto (Unsp spec) [#/Vol] 1.63 10*3/uL 0.83-4.51 [facility] [facility] Absolute neutrophil countOrd ered By: Caridad Edmondson on 11-29-2024 Neutrophils (Bld) [#/Vol] 5.4 10*3/uL 2.0-7.7 [facility] Anion gap in Serum or Plasma Ordered By: Caridad Edmonsdon on 11-29-2024 Anion gap [Moles/Vol] 11 mmol/L 5-15 [facility] Automated lymphocyte count a s percentage of total leukocytesOrdered By: Caridad Edmondson on 11-29-2024 Lymphocytes/100 WBC Auto (Unsp spec) 21.3 % 19-41 [facility] BUN/creatinine ratioOrdered By: Caridad Edmondson on 11-29-2024 Urea nitrogen/Creatinine [Mass ratio] 16.2 mg/mg 10-20 [facility] Basophil percentageOrdered B y: Caridad Edmondson on 11-29-2024 Basophils/100 WBC (Bld) 0.9 % 0-1 [facility] Bilirubin, totalOrdered By: Caridad Edmondson on 11-29-2024 Bilirubin [Mass/Vol] 0.29 mg/dL 0.00-1.30 [facility] CBC W/Diff, Automatedon 11-18 Absolute Lymph 1.63 X10 3/uL Normal 0.83-4.51 [facility] Comment on above: Performed By: #### L 501.6710, L503.0106, L506.1001, L500.4050, L500.4100, L3400.0920, L101.9900, L100.0100 #### [facility] [address] [place], [address] Absolute Neut 5.4 X10 3/uL Normal 2.0-7.7 [facility] Comment on above: Performed By: #### L 501.6710, L503.0106, L506.1001, L500.4050, L500.4100, L3400.0920, L101.9900, L100.0100 #### [facility] [address] [place], [address] Basophils/100 WBC (Bld) 0.9 % Normal 0-1 [facility] Comment on above: Performed By: #### L 501.6710, L503.0106, L506.1001, L500.4050, L500.4100, L3400.0920, L101.9900, L100.0100 #### [facility] [address] [place], [address] Eosinophils/100 WBC (Bld) 1.0 % Normal 0-5 [facility] Comment on above: Performed By: #### L 501.6710, L503.0106, L506.1001, L500.4050, L500.4100, L3400.0920, L101.9900, L100.0100 #### [facility] [address] [place], [address] Erythrocyte distribution width (RBC) [Ratio] 12.8 % Normal 11.6-14.6 [facility] Comment on above: Performed By: #### L 501.6710, L503.0106, L506.1001, L500.4050, L500.4100, L3400.0920, L101.9900, L100.0100 #### [facility] [address] [place], [address] Hematocrit (Bld) [Volume fraction] 39.9 % Normal 37-47 [facility] Comment on above: Performed By: #### L 501.6710, L503.0106, L506.1001, L500.4050, L500.4100, L3400.0920, L101.9900, L100.0100 #### [facility] [address] [place], [address] Hemoglobin (Bld) [Mass/Vol] 13.4 g/dL Normal 12.0-15.0 [facility] Comment on above: Performed By: #### L 501.6710, L503.0106, L506.1001, L500.4050, L500.4100, L3400.0920, L101.9900, L100.0100 #### [facility] [address] [place], [address] IG% 0.300 Normal 0.0-0.9 [facility] Comment on above: Result Comment: IG% - Immature Granulocytes (promyelocytes, myelocytes and metamyelocytes) > 1% indicates that a LEFT SHIFT is Present. Performed By: #### L 501.6710, L503.0106, L506.1001, L500.4050, L500.4100, L3400.0920, L101.9900, L100.0100 #### [facility] [address] [place], [address] Lymphocytes/100 WBC (Bld) 21.3 % Normal 19-41 [facility] Comment on above: Performed By: #### L 501.6710, L503.0106, L506.1001, L500.4050, L500.4100, L3400.0920, L101.9900, L100.0100 #### [facility] [address] [place], [address] MCH (RBC) [Entitic mass] 30.9 pg Normal 27.0-32.0 [facility] Comment on above: Performed By: #### L 501.6710, L503.0106, L506.1001, L500.4050, L500.4100, L3400.0920, L101.9900, L100.0100 #### [facility] [address] [place], [address] MCHC (RBC) [Mass/Vol] 33.6 g/dL Normal 32-36 [facility] Comment on above: Performed By: #### L 501.6710, L503.0106, L506.1001, L500.4050, L500.4100, L3400.0920, L101.9900, L100.0100 #### [facility] [address] [place], [address] MCV (RBC) [Entitic vol] 91.9 fL Normal 81-99 [facility] Comment on above: Performed By: #### L 501.6710, L503.0106, L506.1001, L500.4050, L500.4100, L3400.0920, L101.9900, L100.0100 #### [facility] [address] [place], [address] Monocytes/100 WBC (Bld) 6.0 % Normal 0-10 [facility] Comment on above: Performed By: #### L 501.6710, L503.0106, L506.1001, L500.4050, L500.4100, L3400.0920, L101.9900, L100.0100 #### [facility] [address] [facility] [place], [address] Neutrophils/100 WBC (Bld) 70.5 % High 47-70 [facility] Comment on above: Performed By: #### L 501.6710, L503.0106, L506.1001, L500.4050, L500.4100, L3400.0920, L101.9900, L100.0100 #### [facility] [address] [place], [address] Nucleated RBC (Bld) [#/Vol] 0 10*3/uL Normal 0-5 [facility] Comment on above: Performed By: #### L 501.6710, L503.0106, L506.1001, L500.4050, L500.4100, L3400.0920, L101.9900, L100.0100 #### [facility] [address] [place], [address] Platelet mean volume (Bld) [Entitic vol] 9.6 fL Normal 6.2-12.0 [facility] Comment on above: Performed By: #### L 501.6710, L503.0106, L506.1001, L500.4050, L500.4100, L3400.0920, L101.9900, L100.0100 #### [facility] [address] [facility] [place], [address] Platelets (Bld) [#/Vol] 265 10*3/uL Normal 150-450 [facility] Comment on above: Performed By: #### L 501.6710, L503.0106, L506.1001, L500.4050, L500.4100, L3400.0920, L101.9900, L100.0100 #### [facility] [address] [place], [address] RBC (Bld) [#/Vol] 4.34 10*6/uL Normal 4.2-5.4 [facility] Comment on above: Performed By: #### L 501.6710, L503.0106, L506.1001, L500.4050, L500.4100, L3400.0920, L101.9900, L100.0100 #### [facility] [address] [place], [address] RDW SD 43.5 fl Normal 35.1-43.9 [facility] Comment on above: Performed By: #### L 501.6710, L503.0106, L506.1001, L500.4050, L500.4100, L3400.0920, L101.9900, L100.0100 #### [facility] [address] [place], [address] WBC (Bld) [#/Vol] 7.6 10*3/uL Normal 4.4-11.0 [facility] Comment on above: Performed By: #### L 501.6710, L503.0106, L506.1001, L500.4050, L500.4100, L3400.0920, L101.9900, L100.0100 #### [facility] [address] [place], [address] CRPon 11-29-2024 C-REACTIVE PROT 3.80 mg/L High 0.0-3.0 [facility] Comment on above: Performed By: #### L 501.6710, L503.0106, L506.1001, L500.4050, L500.4100, L3400.0920, L101.9900, L100.0100 #### [facility] [address] [place], [address] Calculated very low density lipoprotein (VLDL) cholesterol measurementOrdered By: Caridadvalente Edmondson on 11-29-2024 Calculated very low density lipoprotein (VLDL) cholesterol measurement 26 mg/dL 5-40 [facility] Carbon dioxide, total [Moles /volume] in Central venous bloodOrdered By: Caridad Debo on 11-29-2024 CO2 [Moles/Vol] 22.0 mmol/L 21.0-32.0 [facility] Chloride assayOrdered By: Iwona Edmondson on 11-29-2024 Chloride [Moles/Vol] 107 mmol/L 98-108 [facility] Comprehensive Metabolic Prof ilon 11-29-2024 Albumin [Mass/Vol] 4.0 g/dL Normal 3.4-4.8 [facility] Comment on above: Performed By: #### L 501.6710, L503.0106, L506.1001, L500.4050, L500.4100, L3400.0920, L101.9900, L100.0100 #### [facility] [address] [place], [address] Albumin/Globulin [Mass ratio] 1.5 {ratio} Normal 0.9-2.4 [facility] Comment on above: Performed By: #### L 501.6710, L503.0106, L506.1001, L500.4050, L500.4100, L3400.0920, L101.9900, L100.0100 #### [facility] [address] [place], [address] ALK PHOS 51 U/L Normal 35-104 [facility] Comment on above: Performed By: #### L 501.6710, L503.0106, L506.1001, L500.4050, L500.4100, L3400.0920, L101.9900, L100.0100 #### [facility] [address] [place], [address] ALT [Catalytic activity/Vol] 14 U/L Normal <=34 [facility] Comment on above: Performed By: #### L 501.6710, L503.0106, L506.1001, L500.4050, L500.4100, L3400.0920, L101.9900, L100.0100 #### [facility] [address] [place], [address] AST [Catalytic activity/Vol] 21 U/L Normal <=31 [facility] Comment on above: Performed By: #### L 501.6710, L503.0106, L506.1001, L500.4050, L500.4100, L3400.0920, L101.9900, L100.0100 #### [facility] [address] [place], [address] Bilirubin [Mass/Vol] 0.29 mg/dL Normal 0.00-1.30 [facility] Comment on above: Performed By: #### L 501.6710, L503.0106, L506.1001, L500.4050, L500.4100, L3400.0920, L101.9900, L100.0100 #### [facility] [address] [place], [address] BUN/CRE 16.2 RATIO Normal 10-20 [facility] Comment on above: Performed By: #### L 501.6710, L503.0106, L506.1001, L500.4050, L500.4100, L3400.0920, L101.9900, L100.0100 #### [facility] [address] [place], [address] Calcium [Mass/Vol] 9.1 mg/dL Normal 7.6-11.0 [facility] Comment on above: Performed By: #### L 501.6710, L503.0106, L506.1001, L500.4050, L500.4100, L3400.0920, L101.9900, L100.0100 #### [facility] [address] [place], [address] Chloride [Moles/Vol] 107 mmol/L Normal 98-108 [facility] Comment on above: Performed By: #### L 501.6710, L503.0106, L506.1001, L500.4050, L500.4100, L3400.0920, L101.9900, L100.0100 #### [facility] [address] [place], [address] CO2 [Moles/Vol] 22.0 mmol/L Normal 21.0-32.0 [facility] Comment on above: Performed By: #### L 501.6710, L503.0106, L506.1001, L500.4050, L500.4100, L3400.0920, L101.9900, L100.0100 #### [facility] [address] [place], [address] Creatinine [Mass/Vol] 0.99 mg/dL Normal 0.70-1.20 [facility] Comment on above: Performed By: #### L 501.6710, L503.0106, L506.1001, L500.4050, L500.4100, L3400.0920, L101.9900, L100.0100 #### [facility] [address] [place], [address] GAP 11 Normal 5-15 [facility] Comment on above: Performed By: #### L 501.6710, L503.0106, L506.1001, L500.4050, L500.4100, L3400.0920, L101.9900, L100.0100 #### [facility] [address] [place], [address] GFR/1.73 sq M.predicted among non-blacks MDRD (S/P/Bld) [Vol rate/Area] 64 mL/min/{1.73_m2} Normal >60 [facility] Comment on above: Result Comment: mL/m in/1.73m2 CKD-EPI Creatinine Equation (2020) Performed By: #### L 501.6710, L503.0106, L506.1001, L500.4050, L500.4100, L3400.0920, L101.9900, L100.0100 #### [facility] [address] [place], [address] Globulin (S) [Mass/Vol] 2.7 g/dL Normal 2.2-4.2 [facility] Comment on above: Performed By: #### L 501.6710, L503.0106, L506.1001, L500.4050, L500.4100, L3400.0920, L101.9900, L100.0100 #### [facility] [address] [place], [address] Glucose [Mass/Vol] 109 mg/dL High 70-99 [facility] Comment on above: Performed By: #### L 501.6710, L503.0106, L506.1001, L500.4050, L500.4100, L3400.0920, L101.9900, L100.0100 #### [facility] [address] [place], [address] Potassium [Moles/Vol] 4.0 mmol/L Normal 3.3-5.1 [facility] Comment on above: Performed By: #### L 501.6710, L503.0106, L506.1001, L500.4050, L500.4100, L3400.0920, L101.9900, L100.0100 #### [facility] [address] [place], [address] Sodium [Moles/Vol] 140 mmol/L Normal 133-145 [facility] Comment on above: Performed By: #### L 501.6710, L503.0106, L506.1001, L500.4050, L500.4100, L3400.0920, L101.9900, L100.0100 #### [facility] [address] [place], [address] T PROT 6.7 g/dL Normal 5.9-8.4 [facility] Comment on above: Performed By: #### L 501.6710, L503.0106, L506.1001, L500.4050, L500.4100, L3400.0920, L101.9900, L100.0100 #### [facility] [address] [place], [address] Urea nitrogen [Mass/Vol] 16 mg/dL Normal 4-19 [facility] Comment on above: Performed By: #### L 501.6710, L503.0106, L506.1001, L500.4050, L500.4100, L3400.0920, L101.9900, L100.0100 #### [facility] [address] [place], [address] Eosinophil percentageOrdered By: Caridad Edmondson on 11-29-2024 Eosinophils/100 WBC (Bld) 1.0 % 0-5 [facility] Erythrocyte Sed Rateon 11-29 SED RATE 19 mm/hr Normal 0-30 [facility] Comment on above: Performed By: #### L 501.6710, L503.0106, L506.1001, L500.4050, L500.4100, L3400.0920, L101.9900, L100.0100 #### [facility] [address] [place], [address] Erythrocyte distribution wid th ratioOrdered By: Caridad Edmondson on 11-29-2024 Erythrocyte distribution width (RBC) [Ratio] 12.8 % 11.6-14.6 [facility] Erythrocyte distribution wid th standard deviationOrdered By: Caridad Edmondson on 11-29-2024 Erythrocyte distribution width (RBC) [Ratio] 43.5 fl 35.1-43.9 [facility] Erythrocyte sedimentation ra teOrdered By: Caridad Edmondson on 11-29-2024 ESR (Bld) [Velocity] 19 mm/h 0-30 [facility] Glomerular filtration rate ( GFR) estimation/1.73 sq m using serum, plasma, or whole bOrdered By: Caridad Edmondson on 11-29-2024 GFR/1.73 sq M.predicted among non-blacks MDRD (S/P/Bld) [Vol rate/Area] 64 mL/min/{1.73_m2} >60 [facility] Comment on above: mL/min/1.73m2 CKD-EP I Creatinine Equation (2020) Hematocrit Auto (Bld) [Volum e fraction]Ordered By: Caridad Edmondson on 11-29-2024 Hematocrit (Bld) [Volume fraction] 39.9 % 37-47 [facility] Hemoglobin measurementOrdere d By: Caridad Edmondson on 11-29-2024 Hemoglobin (Bld) [Mass/Vol] 13.4 g/dL 12.0-15.0 [facility] Immature granulocytes/100 WB C Auto (Bld)Ordered By: Caridad Edmondson on 11-29-2024 Immature granulocytes/100 WBC (Bld) 0.300 % 0.0-0.9 [facility] Comment on above: IG% - Immature Granu locytes (promyelocytes, myelocytes and metamyelocytes) > 1% indicates that a LEFT SHIFT is Present. LDL calc ser/plasOrdered By: Caridad Edmondson on 11-29-2024 Cholesterol in LDL [Mass/Vol] 153 mg/dL [facility] Comment on above: Fhakoviorq=461-337 m g/dL & Higher Fjes=725 mg/dL or greaterFriedwald Equation for LDL-C Laboratory - Chemistry and C hemistry - challengeOrdered By: Caridad Edmondson on 11-29-2024 AST [Catalytic activity/Vol] 21 U/L <32 [facility] Lipid Profileon 11-29-2024 CHOL:HDL 4.34 Normal [facility] Comment on above: Performed By: #### L 501.6710, L503.0106, L506.1001, L500.4050, L500.4100, L3400.0920, L101.9900, L100.0100 #### [facility] [address] [place], [address] Cholesterol [Mass/Vol] 233 mg/dL High <=200 [facility] Comment on above: Result Comment: Chol esterol level, Desirable <200 mg/dL Borderline high cholesterol 200-239 mg/dL High cholesterol >=240 mg/dL Recommendations of the NCEP Adult Treatment Panel for the following risk-cutoff thresholds for the [place] population. Performed By: #### L 501.6710, L503.0106, L506.1001, L500.4050, L500.4100, L3400.0920, L101.9900, L100.0100 #### [facility] [address] [place], [address] Cholesterol in HDL [Mass/Vol] 54 mg/dL Normal [facility] Comment on above: Result Comment: [place] onal Cholesterol Education Program (NCEP) guidelines: <40 mg/dL: Low HDL-cholesterol (major risk factor for CHD) >= 60 mg/dL: High HDL-cholesterol (negative risk factor for CHD) HDL-cholesterol is affected by a number of factors, e.g. smoking, exercise, hormones, sex and age. Performed By: #### L 501.6710, L503.0106, L506.1001, L500.4050, L500.4100, L3400.0920, L101.9900, L100.0100 #### [facility] [address] [place], [address] Cholesterol in LDL [Mass/Vol] 153 mg/dL Normal [facility] Comment on above: Result Comment: Bord zcgtlq=349-694 mg/dL Higher Cpsh=600 mg/dL or greater Friedwald Equation for LDL-C Performed By: #### L 501.6710, L503.0106, L506.1001, L500.4050, L500.4100, L3400.0920, L101.9900, L100.0100 #### [facility] [address] [place], [address] Cholesterol in VLDL [Mass/Vol] 26 mg/dL Normal 5-40 [facility] Comment on above: Performed By: #### L 501.6710, L503.0106, L506.1001, L500.4050, L500.4100, L3400.0920, L101.9900, L100.0100 #### [facility] [address] [place], [address] Triglyceride [Mass/Vol] 132 mg/dL Normal [facility] Comment on above: Result Comment: The drugs N-Acetylcysteine and Metamizole may falsely depress this assay. Normal range: <150 mg/dL Borderline High: 150-199 mg/dL High: 200-499 mg/dL Very High: >500 mg/dL Performed By: #### L 501.6710, L503.0106, L506.1001, L500.4050, L500.4100, L3400.0920, L101.9900, L100.0100 #### [facility] [address] [place], [place], [id number] (342) MCV (mean corpuscular volume ) determinationOrdered By: Caridad Edmondson on 11-29-2024 MCV (RBC) [Entitic vol] 91.9 fL 81-99 [facility] Mean corpuscular hemoglobin (MCH) determinationOrdered By: Caridad Edmondson on 11-29-2024 MCH (RBC) [Entitic mass] 30.9 pg 27.0-32.0 [facility] Mean corpuscular hemoglobin concentration (MCHC) determinationOrdered By: Caridad Edmondson on 11-29-2024 MCHC (RBC) [Mass/Vol] 33.6 g/dL 32-36 [facility] Mean platelet volume determi nationOrdered By: Caridad Edmondson on 11-29-2024 Platelet mean volume (Bld) [Entitic vol] 9.6 fL 6.2-12.0 [facility] Monocyte percentageOrdered B y: Caridad Edmondson on 11-29-2024 Monocytes/100 WBC (Bld) 6.0 % 0-10 [facility] Neutrophil percentageOrdered By: Caridad Edmondson on 11-29-2024 Neutrophils/100 WBC (Bld) 70.5 % High 47-70 [facility] Nucleated red blood cell per centageOrdered By: Caridad Edmondson on 11-29-2024 Nucleated RBC/100 WBC (Bld) [Ratio] 0 % 0-5 [facility] Platelet countOrdered By: Iwona Edmondson on 11-29-2024 Platelets (Bld) [#/Vol] 265 10*3/uL 150-450 [facility] Potassium measurement (mass/ volume)Ordered By: Caridad Edmondson on 11-29-2024 Potassium (Unsp spec) [Mass/Vol] 4.0 mmol/L 3.3-5.1 [facility] RBC Auto (Bld) [#/Vol]Ordere d By: Caridad Edmondson on 11-29-2024 RBC (Bld) [#/Vol] 4.34 10*6/uL 4.2-5.4 [facility] Screening total cholesterol/ high density lipoprotein (HDL) cholesterol ratioOrdered By: Caridad Edmondson on 11-29-2024 Cholesterol.total/Cho lesterol in HDL [Mass ratio] 4.34 {ratio} [facility] Serum creatinine measurement (mass/volume)Ordered By: Caridad Edmondson on 11-29-2024 Creatinine [Mass/Vol] 0.99 mg/dL 0.70-1.20 [facility] Serum globulin measurementOr dered By: Caridad Edmondson on 11-29-2024 Globulin (S) [Mass/Vol] 2.7 g/dL 2.2-4.2 [facility] Serum glucose measurement (m ass/volume)Ordered By: Caridad Edmondson on 11-29-2024 Glucose [Mass/Vol] 109 mg/dL High 70-99 [facility] Serum or plasma C reactive p rotein measurement (mass/volume)Ordered By: Caridad Edmondson on 11-29-2024 CRP [Mass/Vol] 3.80 mg/L High 0.0-3.0 [facility] Serum or plasma alanine natarajan otransferase (ALT) measurementOrdered By: Caridad Edmondson on 11-29-2024 ALT [Catalytic activity/Vol] 14 U/L <35 [facility] Serum or plasma albumin davide urement (mass/volume)Ordered By: Caridad Edmondson on 11-29-2024 Albumin [Mass/Vol] 4.0 g/dL 3.4-4.8 [facility] Serum or plasma albumin/glob ulin mass ratioOrdered By: Caridad Edmondson on 11-29-2024 Albumin/Globulin [Mass ratio] 1.5 {ratio} 0.9-2.4 [facility] Serum or plasma alkaline kathya sphatase measurementOrdered By: Caridad Edmondson on 11-29-2024 ALP [Catalytic activity/Vol] 51 U/L 35-104 [facility] Serum or plasma calcium davide urement (mass/volume)Ordered By: Caridad Edmondson on 11-29-2024 Calcium [Mass/Vol] 9.1 mg/dL 7.6-11.0 [facility] Serum or plasma cholesterol in HDL measurement (mass/volume)Ordered By: Caridad Edmondson on 11-29-2024 Cholesterol in HDL [Mass/Vol] 54 mg/dL >40 [facility] Comment on above: National Cholesterol Education Program (NCEP) guidelines:<40 mg/dL: Low HDL-cholesterol (major risk factor for CHD)>= 60 mg/dL: High HDL-cholesterol (negative risk factor for CHD)HDL-cholesterol is affected by a number of factors, e.g. smoking, exercise, hormones, sex and age. Serum or plasma cholesterol measurement (mass/volume)Ordered By: Caridad Edmondson on 11-29-2024 Cholesterol [Mass/Vol] 233 mg/dL High <201 [facility] Comment on above: Cholesterol level, D esirable <200 mg/dLBorderline high cholesterol 200-239 mg/dLHigh cholesterol >=240 mg/dLRecommendations of the NCEP Adult Treatment Panel for the following risk-cutoff thresholds for the [place] population. Serum or plasma retinol davide urement (mass/volume)Ordered By: Caridad Edmondson on 11-29-2024 Retinol [Mass/Vol] 56.9 ug/dL 22.0-69.5 [facility] Comment on above: Reference intervals for vitamin A determined from [facility] studies. Individuals with vitamin A less than 20ug/dL are considered vitamin A deficient and those withserum concentrations less than 10 ug/dL are consideredseverely deficient.This test was developed and its performance characteristicsdetermined by [facility]. It has not been cleared orapproved by the Food and Drug Administration.Performed at: [address] [id number] Director: Yanni Mckay MD, Phone: [phone] Serum or plasma urea nitroge n measurement (mass/volume)Ordered By: Caridad Edmondson on 11-29-2024 Urea nitrogen [Mass/Vol] 16 mg/dL 4-19 [facility] Sodium levelOrdered By: Caridad Edmondson on 11-29-2024 Sodium [Moles/Vol] 140 mmol/L 133-145 [facility] Total proteinOrdered By: Estela Edmondson on 11-29-2024 Protein [Mass/Vol] 6.7 g/dL 5.9-8.4 [facility] Triglycerides measurementOrd ered By: Caridad Edmondson on 11-29-2024 Triglyceride [Mass/Vol] 132 mg/dL <199 [facility] Comment on above: The drugs N-Acetylcy steine and Metamizole may falsely depress this assay. Normal range: <150 mg/dLBorderline High: 150-199 mg/dLHigh: 200-499 mg/dLVery High: >500 mg/dL Vitamin B12on 11-29-2024 Cobalamin (Vitamin B12) [Mass/Vol] 983 pg/mL High 180-914 [facility] Comment on above: Performed By: #### L 501.6710, L503.0106, L506.1001, L500.4050, L500.4100, L3400.0920, L101.9900, L100.0100 #### [facility] [address] [place], [address] Vitamin B12 ser/plasOrdered By: Caridad Edmondson on 11-29-2024 Cobalamin (Vitamin B12) [Mass/Vol] 983 pg/mL High 180-914 [facility] Vitamin D,25 Hydroxyon 11-29 Vitamin D 25-OH 56.9 ng/mL Normal 30-100 [facility] Comment on above: Result Comment: Rose Marie min D Status Deficiency: <20 ng/mL (50nmol/L) Insufficiency: 20-30 ng/mL (50-75 nmol/L) Sufficiency: 30-100 ng/mL (75-250 nmol/L) Toxicity: >100 ng/mL (>250 nmol/L) Performed By: #### L 501.6710, L503.0106, L506.1001, L500.4050, L500.4100, L3400.0920, L101.9900, L100.0100 #### [facility] [address] [place], [address] [place] blood cell (WBC) count Ordered By: Caridad Edmondson on 11-29-2024 WBC (Bld) [#/Vol] 7.6 10*3/uL 4.4-11.0 [facility] Breast Limited Unilateralon 11-02-2024 Breast Limited Unilateral [facility] Imaging Services [address] [place], [place] [address] Breast Limited Unilateral MR#: [id number] Acct: [id number] Name: VICKI KENNEY Rep #: [id number] : 1960 F 64 From: Sejal Drummond MD PCP: Dr. Caridad Edmondson, DO Status: REG CLI Study: Breast Limited Unilateral Date of Exam: Exam# [id number] Ordering Dr: Chel Suarez TELEPHONE SEX WORKER TELEPHONE SEX WORKER -C PROCEDURE: BREAST LIMITED UNILATERAL; RT BRST [...] BENIGN. RECOMMENDATION: 6 Month Follow-up Reading Location: [facility] CC: TELEPHONE SEX WORKER-Dulce Suarez; Dr. Caridad Edmondson DO Sample Washer: Signed Normal [facility] DIAG MAMM W/CAD, UNILATon DIAG MAMM W/CAD, UNILAT [facility] Imaging Services [address] [place] [address] DIAG MAMM W/CAD, UNILAT MR#: [id number] Acct: [id number] Name: HNOEYVICKI ANGELINE Rep #: [id number] : 1960 F 64 From: Sejal Drummond MD PCP: Dr. Caridad Edmondson DO Status: REG CLI Study: DIAG MAMM W/CAD, UNILAT Date of Exam: 11/02/24 Exam# [id number] Ordering Dr: Chel Suarez NP, NP PROCEDURE: BREAST LIMITED UNILATERAL; RT BRST UNILAT [...] BENIGN. RECOMMENDATION: 6 Month Follow-up Reading Location: [facility] CC: TELEPHONE SEX WORKER-C Chel Suarez; Dr. Caridad Edmondson DO Sample Washer: Signed Normal [facility] Rt Brst Unilat Omkar Add-Onon 11-02-2024 Rt Brst Unilat Omkar Add-On [facility] Imaging Services [address] [place], [place] [address] Rt Brst Unilat Omkar Add-On MR#: [id number] Acct: [id number] Name: VICKI KENNEY Rep #: [id number] : 1960 F 64 From: Sejal Drummond MD PCP: Dr. Caridad Edmondson DO Status: REG CLI Study: Rt Brst Unilat Omkar Add-On Date of Exam: 11/02 Exam# [id number] Ordering Dr: Chel Suarez TELEPHONE SEX WORKER TELEPHONE SEX WORKER -C PROCEDURE: BREAST LIMITED UNILATERAL; RT BRST [...] BENIGN. RECOMMENDATION: 6 Month Follow-up Reading Location: [facility] CC: LIZ Suarez; Dr. Caridad Edmondson DO Sample Washer: Signed Normal [facility] Breast imaging reportOrdered By: Sejal Drummond on 10-26-2024 Study report [facility] Imaging Services [address] [place] [address] SCRN MAMM (CAD)W/OMKAR BILAT MR#: [id number] Acct: [id number] Name: VICKI KENNEY Rep #: [id number] : 1960 F 64 From: Lanette Drummond MD PCP: Dr. Caridad Edmondson DO Status: REG CLI Study:SCRN MAMM (CAD)W/OMKAR BILAT Date of Exa m: 10/26/24 Exam# [id number] Ordering Dr: Chel Suarez TELEPHONE SEX WORKER TELEPHONE SEX WORKER-C EXAM: SCRN MAMM (CAD)W/OMKAR BILAT DATE: 10/26/2024 [...] be mailed to the patient. Reading Location: [facility] CC: TELEPHONE SEX WORKER-C Chel Suarez; Dr. Caridad Edmondson DO ~ Sample Washer: Signed [facility] SCRN MAMM (CAD)W/OMKAR BILATo n 10-26-2024 SCRN MAMM (CAD)W/OMKAR BILAT [facility] Imaging Services [address] [place] [address] SCRN MAMM (CAD)W/OMKAR BILAT MR#: [id number] Acct: [id number] Name: HONEYVICKISHAYNA MARCUS Rep #: [id number] : 1960 F 64 From: Sejal Drummond MD PCP: Dr. Caridad Edmondson DO Status: REG CLI Study: SCRN MAMM (CAD)W/OMKAR BILAT Date of Exam: 01/12 Exam# [id number] Ordering Dr: Chel Suarez NP, NP EXAM: SCRN MAMM (CAD)W/OMKAR BILAT DATE: 10/26/2024 [...] be mailed to the patient. Reading Location: [facility] CC: LIZ Suarez; Dr. Caridad Edmondson DO Sample Washer: Signed Normal [facility] [employer] Office Visit Reporton 10-13-2024 [employer] Office Visit Report [facility] [address], [address] [place] [address] OFFICE VISIT Date of Service: 10/13/24 MR#: [id number] Acct: [id number] Name: VICKI KENNEY Rep #: [id number] : 1960 Provider: LIZ vu Age/Sex: 64/F Location: [facility] Status: Signed Intake Vital Signs 04/09/22 09:35 10/13/24 15:09 10/13/24 15:18 Height 5 ft 3 in 5 ft 3 in 5 ft 3 in Weight: 168 lb 6 oz BMI 29.8 BP 136/84 H Intake Visit Reasons: Annual (SURGICAL ASSIST) Chief Complaint: Annual Prefabricated Houses Trimmer Required: No Is patient in pain?: [...] children current occupational status: employed 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 She has been on estrogen/testosterone pellets plus prometrium 200mg QHS X 2 [...] oriented to person and oriented to place HENMS Head: normal to inspection Neck Neck: normal [...] (more content not included)... Normal [facility] Gram stain for investigation of transfusion reactionon 08-19-2021 Microscopic observation Gram stain Nom (Unsp spec) [facility] Work Phone: No Panel Informationon 08-19 POC Bacterial Vaginitis (Rapid) Negative [facility] Work Phone: Thin prep Papanicolaou smear with manual screeningon 08-19-2021 Cytopathology procedure, preparation of smear, genital source Normal genital danielito isolated [facility] Work Phone: Office Visit: Spine Visit- F dustin facial headacheson 09-30-2016 Documentation of current medications (procedure) Done Invalid Interpretation Code [facility] Work Phone: [phone] Protein mass conc Done [facility] Work Phone: [phone] Office Visit: Spine Visit- F dustin facial headacheson 09-24-2016 Documentation of current medications (procedure) Done Invalid Interpretation Code [facility] Work Phone: [phone] Office Visit: Spine Visit- N EWon 09-23-2016 Documentation of current medications (procedure) Done Invalid Interpretation Code [facility] Work Phone: [phone] Tobacco smoking status NHIS Never Invalid Interpretation Code [facility] Work Phone: [phone] Tobacco smoking status NHIS Never smoker [facility] Work Phone: [phone] Tobacco use [facility] Never smoker Invalid Interpretation Code [facility] Work Phone: [phone] Vital Signs Date Time Vital Sign Value Performing Clinician Facility 12-28-2024 14:29-0400 Body temperature 97.5 [degF] Terri Finelli DO Work Phone: [facility] 12-14-2024 15:26-0400 Body mass index (BMI) [Ratio] 29.41 kg/m2 Terri Finelli DO Work Phone: [facility] 12-14-2024 15:26-0400 Body temperature 98.91 [degF] Terri Finelli DO Work Phone: [facility] 12-14-2024 15:26-0400 Body weight 75.3 kg Terri Finelli DO Work Phone: [facility] 12-14-2024 15:26-0400 Diastolic blood pressure 82 mm[Hg] Treri Finelli DO Work Phone: [facility] 12-14-2024 15:26-0400 Heart rate 117 /min Terri Muñoz DO Work Phone: [facility] 12-14-2024 15:26-0400 SaO2% (BldA) [Mass fraction] 97 % Terri Reneei DO Work Phone: [facility] 12-14-2024 15:26-0400 Systolic blood pressure 126 mm[Hg] Terri Muñoz DO Work Phone: [facility] 10-13-2024 15:18-0400 Body height 160.[address] Caridad Edmondson DO Work Phone: [facility] 10-13-2024 15:09-0400 Body mass index (BMI) [Ratio] 29.8 kg/m2 Dr. Caridad Edmondson DO Work Phone: [facility] 10-13-2024 15:09-0400 Body weight 76.[address] Caridad Edmondson DO Work Phone: [facility] 10-13-2024 15:09-0400 Diastolic blood pressure 84 mm[Hg] Dr. Caridad Edmondson DO Work Phone: [facility] 10-13-2024 15:09-0400 Systolic blood pressure 136 mm[Hg] Dr. Caridad Edmondson DO Work Phone: [facility] 04-09-2022 09:35-0500 Body height 160.[address] Caridad Edmondson Work Phone: [facility] Work Phone: 04-09-2022 09:32-0500 Body mass index (BMI) [Ratio] 28.4 kg/m2 Dr. Caridad Edmondson Work Phone: [facility] Work Phone: 04-09-2022 09:32-0500 Body weight 72.[address] Caridad Edmondson Work Phone: [facility] Work Phone: 04-09-2022 09:32-0500 Diastolic blood pressure 84 mm[Hg] Dr. Caridad Edmondson Work Phone: [facility] Work Phone: 04-09-2022 09:32-0500 Systolic blood pressure 138 mm[Hg] Dr. Caridad Edmondson Work Phone: [facility] Work Phone: 08-19-2021 09:08-0400 Body height 160.[address] Caridad Edmondson Work Phone: [facility] Work Phone: 08-19-2021 09:08-0400 Body mass index (BMI) [Ratio] 27.3 kg/m2 Dr. Caridad Edmondson Work Phone: [facility] Work Phone: 08-19-2021 09:08-0400 Body weight 69.[address] Caridad Edmondson Work Phone: [facility] Work Phone: 08-19-2021 09:08-0400 Diastolic blood pressure 100 mm[Hg] Dr. Caridad Edmondson Work Phone: [facility] Work Phone: 08-19-2021 09:08-0400 Systolic blood pressure 188 mm[Hg] Dr. Caridad Edmondson Work Phone: [facility] Work Phone: 09-23-2016 08:47-0400 BMI (Body Mass Index) 31.73 kg/m2 Treasure Mendoza DC [facility] Work Phone: 09-23-2016 08:47-0400 Pulse (Heart Rate) 89 /min Treasure Mendoza DC [facility] Work Phone: 09-23-2016 08:47-0400 Respiratory Rate 19 /min Treasure Mendoza DC [facility] Work Phone: 09-23-2016 08:47-0400 Weight 82.56 kg Treasure Mendoza DC [facility] Work Phone: 06-20-2015 10:35-0500 Body Temperature 97.9 [degF] Treasure Mendoza DC [facility] Work Phone: 06-20-2015 10:35-0500 BP Diastolic 90 mm[Hg] Treasure Mendoza DC [facility] Work Phone: 06-20-2015 10:35-0500 BP Systolic 148 mm[Hg] Treasure Mendoza DC [facility] Work Phone: 06-20-2015 10:35-0500 Pulse Oximetry 98 % Treasure Mendoza DC [facility] Work Phone: 03-26-2015 08:46-0500 BSA (Body Surface Area) 1.79 m2 Treasure Mendoza DC [facility] Work Phone: 07-17-2014 08:35-0400 Height 161.29 cm Treasure Mendoza DC [facility] Work Phone: Encounters Encounter Date Encounter Type Care Provider Facility Start: 12-30-2024 End: 01-02-2025 Telephone encounter Terri Muñoz DO Work Phone: General Surgery Comment on above: Breast Localization (LOCALIZATION IMAGE REVIEW /(Please do NOT submit until entire workup complete)/(if > 3 reflectors to be placed in one breast, please review with radiologist) //Vicki Kenney /[id number]/07/04/1960 //WORK- UP COMPLETE? Yes //Order Placed Yes //Right /- Site 1 /Location 11:/Clip Shape heart/Clip Migration No/Pathology atypical lobular hyperplasia/Preferred Localization alanna/* If clip migrated, please review with radiologist///This Form Has Been Completed B) Start: 12-28-2024 End: 12-28-2024 Office outpatient visit 15 minutes Terri Muñoz DO Work Phone: General Surgery Comment on above: Atypical lobular hyp erplasia (ALH) of right breast (Primary Dx) Start: 12-28-2024 End: 12-28-2024 ambulatory CARIDAD EDMONDSON Facility:[facility] Start: 12-28-2024 ambulatory Caridad Edmondson Facility:[facility] Start: 12-16-2024 ambulatory TERRI Lovett ity:[facility] Start: 12-16-2024 End: 12-16-2024 Subsequent hospital visit by physician Screen Mammo [facility] Mammogram Comment on above: Breast cyst, right [ N60.01] Start: 12-14-2024 End: 12-14-2024 Office consultation new/estab patient 60 min Terri Muñoz DO Work Phone: General Surgery Comment on above: Breast cyst, right ( Primary Dx); Family history of malignant neoplasm of breast; Encounter for screening mammogram for malignant neoplasm of breast; Hormone replacement therapy (HRT) Start: 12-14-2024 End: 12-14-2024 ambulatory TERRI MUÑOZ Facility:[facility] Start: 12-06-2024 Encounter for genera l adult medical examination without abnormal findings Caridad Edmondson [facility] Start: 11-29-2024 End: 11-29-[address] Caridad Edmondson DO Work Phone: -Laboratory Natalie Cantu [facility] Start: 11-29-2024 End: 11-29-[address] Caridad Edmondson DO -Laboratory Natalie Cantu [facility] Start: 11-29-2024 End: 11-29-2024 ambulatory Caridad Edmondson Facility:[facility] Start: 11-02-2024 End: 11-02-2024 Patient encounter procedure Chel Suarez TELEPHONE SEX WORKER-C -Outpatient Breast Imaging Work Phone: Start: 11-02-2024 End: 11-02-2024 ambulatory Chel Suarez Facility:[facility] Start: 10-26-2024 End: 10-26-[address] Caridad Edmondson DO Work Phone: -Outpatient Breast Imaging Start: 10-26-2024 End: 10-26-2024 Patient encounter procedure Chel Suarez TELEPHONE SEX WORKER-C -Outpatient Breast Imaging Work Phone: Start: 10-26-2024 End: 10-26-2024 ambulatory Caridad Edmondson Facility:[facility] Start: 10-13-2024 End: 10-13-2024 Patient encounter procedure Chel Suarez TELEPHONE SEX WORKER-C -[facility] Work Phone: Start: 10-13-2024 End: 10-13-2024 Patient encounter status Chel Suarez TELEPHONE SEX WORKER-C [facility] Start: 10-13-2024 End: 10-13-[address] Caridad Edmondson DO Work Phone: [facility] Work Phone: Start: 11-16-2022 Refill Kendy Froims on DEPARTMENT CLERK.[employer] Work Phone: Neurology Comment on above: Refill Request Start: 11-12-2022 Refill Kendy Froims on DEPARTMENT CLERK.[employer] Work Phone: Neurology Comment on above: Refill Request Start: 09-18-2022 ambulatory Kendy Froims on DEPARTMENT CLERK.[employer] Work Phone: Neurology Comment on above: Samantha HIGH Start: 04-18-2022 End: 04-18-[address] Caridad Edmondson Work Phone: [facility] Work Phone: Start: 04-18-2022 End: 04-18-[address] Caridad Edmondson Work Phone: [facility]-Outpatient Breast Imaging Start: 04-09-2022 End: 04-09-[address] Caridad Edmondson Work Phone: [facility] Start: 12-29-2021 Refill Afia allen PA-C Work Phone: Neurology Comment on above: Refill Request Start: 08-29-2021 End: 08-29-2021 ambulatory Kendy Froimson DEPARTMENT CLERK.[employer] Work Phone: Neurology Comment on above: Migraine without aur a and without status migrainosus, not intractable (Primary Dx) Start: 08-29-2021 End: 08-29-2021 Telemedicine consultation with patient Kendy Romero APRN.[employer] Work Phone: [facility] Start: 08-19-2021 End: 08-19-[address] Caridad Edmondson Work Phone: [facility]-Laboratory, Specimen Start: 08-19-2021 End: 08-19-[address] Caridad Edmondson Work Phone: [facility] Procedures Date Procedure Procedure Detail Performing Clinician Start: 12-14-2024 BREAST BIOPSY RIG HT (POC) SURG USE ONLY Terri Muñoz DO Work Phone: Start: 12-14-2024 Level iv surg pathol ogy gross&microscopic exam Terri Muñoz DO Work Phone: Start: 11-29-2024 Vitamin D, 25-hydrox y measurement Dr. Caridad Edmondson DO Work Phone: Comment on above: Vitamin D StatusDefi ciency: <20 ng/mL (50nmol/L)Insufficiency: 20-30 ng/mL (50-75 nmol/L)Sufficiency: 30-100 ng/mL (75-250 nmol/L)Toxicity: >100 ng/mL (>250 nmol/L) Start: 11-02-[address] Caridad mackey DO Work Phone: Start: 11-02-[address] Caridad Edmondson DO Work Phone: Start: 10-26-2024 Screening mammography Samson Edmondson DO Work Phone: Start: 04-18-2022 Screening mammography Samson Edmondson Work Phone: Start: 05-02-2022 Cytopathology proced ure, preparation of smear, genital source Dr. Caridad Edmondson Work Phone: Start: 08-19-2021 Investigation of tra nsfusion reaction Dr. Caridad Edmondson Work Phone: Start: 09-30-2016 End: 09-30-2016 Chiropract manj 1-2 regions Treasure Jett Giancarlo i DC Work Phone: Start: 09-24-2016 End: 09-24-2016 Chiropract manj 1-2 regions Treasure B Giancarlo i DC Work Phone: Start: 09-23-2016 End: 09-23-2016 X-ray exam of neck spine Treasure Mendoza D C Work Phone: Start: 07-17-2014 Adult health examination Well adult exam Treasure Mendoza DC Start: 07-11-2013 Mammography Kendy jones APRN.[employer] Work Phone: Start: 05-24-2013 Lipid 1996 panel - S ankit or Plasma Screen Wstr Start: 01-18-2013 Colonoscopy Kendy jones APRN.[employer] Work Phone: Plan of Treatment Date Care Activity Detail Author Start: 2036 RSV Vaccine (1 - 1-d ose 75+ series) RSV Vaccine (1 - 1-dose 75+ series) [facility] Start: 03-13-2025 End: 03-13-2025 Patient encounter procedure 03/13/2025 7:00 AM EST Office Visit OB/Gynecology [address] [place] [id number] Adelina Howard APRN.[employer] [address] [place] [address] new patient- current patient of Chel Suarez OB/Gynecology Comment on above: new patient- current patient of Chel Suarez Start: 02-13-2025 End: 02-13-2025 Admission to same day surgery center 02/13/2025 11:13 AM EDT - 02/13/2025 12:56 PM EDT Surgery [address] [place] [address] Terri Muñoz, DO [address] [place] [address] EXCISION BREAST LESION IDENTIFIED BY PREOPERATIVE PLACEMENT RADIOLOGICAL MARKER, EACH ADD'L IDENTIFIED, OPEN [facility] Surgery Comment on above: EXCISION BREAST LESI ON IDENTIFIED BY PREOPERATIVE PLACEMENT RADIOLOGICAL MARKER, EACH ADD'L IDENTIFIED, OPEN Start: 02-13-2025 End: 02-13-2025 Exc brst les preop plmt rad marker opn ea addl EXCISION BREAST LESION IDENTIFIED BY PREOPERATIVE PLACEMENT RADIOLOGICAL MARKER, EACH ADD'L IDENTIFIED, OPEN Atypical lobular hyperplasia (ALH) of right breast 02/13/2025 11:13 AM EDT ME OR Start: 02-13-2025 Subsequent hospital visit by physician 02/13/2025 11:13 AM EDT Hospital Encounter [facility] Surgery [address] [place] [address] Terri Muñoz, DO [address] [place] [address] Atypical lobular hyperplasia (ALH) of right breast [N60.91] [facility] Surgery Comment on above: Atypical lobular hyp erplasia (ALH) of right breast [N60.91] Start: 02-06-2025 End: 02-06-2025 Anesthesia consultation 02/06/2025 7:00 PM EDT PAT Pre Anesthesia [address] [facility] [address] [place] [address] VV [id number] EXCISION BREAST LESION IDENTIFIED BY PREOPERATIVE PLACEMENT RADIOLOGICAL MARKER, EACH ADD'L IDENTIFIED, OPEN [8730] - Breast - Right 02/13 Pre Anesthesia Comment on above: VV [id number] EXCISI ON BREAST LESION IDENTIFIED BY PREOPERATIVE PLACEMENT RADIOLOGICAL MARKER, EACH ADD'L IDENTIFIED, OPEN [8730] - Breast - Right 02/13 Start: 02-06-2025 End: 02-06-2025 Patient encounter procedure 02/06/2025 9:30 AM EDT Appointment Mammography [address] [place] [address] RICHAR NDL LOC W [facility] GD RIGHT Mammography Comment on above: RICHAR NDL LOC W RICHAR GD RIGHT Start: 12-28-2024 End: 12-28-2024 Patient encounter procedure General Surgery Comment on above: 2 WK F/U FU: Right breast bio psy results and removal of one simple stitch. [facility] Start: 12-19-2024 Influenza vaccination Influenza Vacc ine (#1) [facility] Start: 07-02-2024 [facility]AB[facility] Start: 07-02-2024 Diabetes Screening Diabetes Screenin g [facility] Start: 12-19-2022 Influenza vaccination INFLUENZA (#1) [facility] Start: 12-19-2021 Influenza vaccination C [facility] Start: 08-20-2021 COVID-19 VACCINE (4 - Booster for Pfizer series) COVID-19 VACCINE (4 - Booster for Pfizer series) [facility] Start: 06-17-2021 COVID-19 VACCINE (4 - Booster for Pfizer series) COVID-19 VACCINE (4 - Booster for Pfizer series) [facility] Start: 06-17-2021 COVID-19 VACCINE (4 - Pfizer series) COVID-19 VACCINE (4 - Pfizer series) [facility] Start: 05-24-2018 Lipid panel Lipid Screening [facility] Start: 05-24-2018 LIPID SCREEN LIPID SCREEN [facility] Start: 10-07-2016 End: 10-07-2016 Appointment Appointment [facility] Work Phone: Start: 10-02-2016 End: 10-02-2016 Appointment Appointment [facility] Work Phone: Start: 09-30-2016 End: 09-30-2016 Appointment Appointment [facility] Work Phone: Start: 09-30-2016 End: 09-30-2016 Follow up Appt 2x/week Follow up Appt 2x/week [facility] Work Phone: Start: 09-24-2016 End: 09-24-2016 Appointment Appointment [facility] Work Phone: Start: 09-24-2016 End: 09-24-2016 Follow up Appt 2x/week Follow up Appt 2x/week [facility] Work Phone: Start: 09-23-2016 End: 09-23-2016 Appointment Appointment [facility] Work Phone: Start: 10-29-2015 End: 10-29-2015 Complete sleep workup (PSG,CPAP as indicated) & Follow up Complete sleep workup (PSG,CPAP as indicated) & Follow up [facility] Work Phone: Start: 09-20-2015 End: 09-26-2015 Neurology Referral Neurology Referral Davey Griffith, [address] [place] [address], [id number] [facility] Work Phone: Start: 09-10-2014 HPV TESTING HPV TESTING [facility] Start: 09-10-2014 PAP TESTING PAP TESTING [facility] Start: 09-10-2014 Screening for malign ant neoplasm of cervix Cervical Cancer Screening [facility] Start: 07-11-2014 Mammography MAMMOGRAM [facility] Start: 07-11-2014 Screening for malign ant neoplasm of breast Mammogram Screening [facility] Start: 01-18-2014 Colonoscopy COLONOSCOPY [facility] Start: 01-18-2014 COLORECTAL CANCER SCREENING COLORECTAL CANCER SCREENING [facility] Start: 01-18-2014 Screening for malign ant neoplasm of colon [facility] Start: 07-05-2011 Pneumococcal Vaccine : 50+ (1 of 1 - PCV) Pneumococcal Vaccine: 50+ (1 of 1 - PCV) [facility] Start: 07-05-2011 SHINGRIX VACCINE (1 of 2) SHINGRIX VACCINE (1 of 2) [facility] Start: 10-29-2009 Urine microalbumin profile [facility] Start: 2006 COLOGUARD (FIT-DNA) COLOGUARD (FIT-D NA) [facility] Start: [address] COLONOGRAPHY [facility] Start: 2006 FECAL OCCULT BLOOD FECAL OCCULT BLOO D [facility] Start: 2006 Screening for malign ant neoplasm of colon [facility] Start: 2006 SIGMOIDOSCOPY SIGMOIDOSCOPY [facility] Start: 07-05-1979 Anxiety Screening Anxiety Screening [facility] Start: 07-05-1979 HEPATITIS C SCREENING HEPATITIS C [facility] Start: 07-05-1979 Hepatitis C screening Hepatitis C [facility] Start: 07-05-1979 HIV SCREENING HIV SCREENING [facility] Start: 07-05-1979 HIV screening HIV Screening [facility] Exc brst les preop p lmt rad marker opn ea addl EXCISION BREAST LESION IDENTIFIED BY PREOPERATIVE PLACEMENT RADIOLOGICAL MARKER, EACH ADD'L IDENTIFIED, OPEN Atypical lobular hyperplasia (ALH) of right breast [facility] OR [facility] Breast - bilatera l Screening [facility] [facility] MG Breast - right Diagnostic for implant RICHAR DIAGNOSTIC RIGHT Radiology Routine Breast cyst, right 12/16/2024 11:52 AM EDT [facility] Work Phone: End: 01-13-2026 MG Breast - right Diagnostic for implant RICHAR DIAGNOSTIC RIGHT Radiology Routine Breast cyst, right 1 Occurrences starting 12/14/2024 until 01/13/2026 [facility] Work Phone: Comment on above: 1 Occurrences starti ng 12/14/2024 until 01/13/2026 End: 01-27-2026 MG Guidance for needle localization of Breast - right RICHAR NDL LOC W RICHAR GD RIGHT Radiology Routine Atypical lobular hyperplasia (ALH) of right breast 1 Occurrences starting 12/28/2024 until 01/27/2026 [facility] Work Phone: Comment on above: 1 Occurrences starti ng 12/28/2024 until 01/27/2026 Patient Education Verapamil%20(O ral)%20(C apsule,%20Extended%20Re lease,%20Tablet,%20Tabl et,%20Extended%20Releas e) [facility] Work Phone: [facility] Immunizations Immunization Date Immunization Notes Care Provider Fa cility 01-13-2022 influenza virus vaccine, unspecified formulation Screen Wstr [facility] 05-18-2012 influenza virus vaccine, unspecified formulation Kendy Shawon DEPARTMENT CLERK.[employer] Work Phone: [facility] 01-20-2009 influenza virus vaccine, live, attenuated, for intranasal use Kendy Romero DEPARTMENT CLERK.[employer] Work Phone: [facility] Work Phone: 01-19-2008 influenza virus vaccine, live, attenuated, for intranasal use Kendy Froimson DEPARTMENT CLERK.[employer] Work Phone: [facility] Work Phone: 03-22-2003 influenza virus vaccine, unspecified formulation Kendy Froimson DEPARTMENT CLERK.[employer] Work Phone: [facility] Work Phone: 11-06-1999 hepatitis A vaccine, unspecified formulation Kendy Froimson DEPARTMENT CLERK.[employer] Work Phone: [facility] Work Phone: 10-30-1999 diphtheria and tetan us toxoids, adsorbed for pediatric use Kendy Froimson DEPARTMENT CLERK.[employer] Work Phone: [facility] Work Phone: Payers Date Payer Category Payer Self-pay [id number] 2018 Private Health Insurance MMO SUP ERMED PPO [id number] 2018 Unknown MMO MMO SUPERMED PLUS [id number] 2018-Present [phone] [address] [place] [address] PPO [id number] 2018 Unknown [id number] 2011 Unknown [id number] Unknown [id number] Unknown [id number] Unknown [id number] Unknown [id number] Unknown [id number] Social History Date Type Detail Facility Start: 08-19-2021 End: 04-09-2022 Tobacco smoking status FLIS Unknown if ever smoked [facility] Work Phone: Start: 1960 Sex Assigned At Female [facility] Start: 10-10-2010 End: 04-09-2022 Tobacco smoking status FLIS Never smoked tobacco [facility] Work Phone: Start: 08-29-2021 End: 12-14-2024 Alcohol intake Current drinker of alcohol (finding) [facility] Start: 10-10-2010 Tobacco use and exposure Smokeless tobacco non-user [facility] Work Phone: Start: 09-10-2022 End: 12-14-2024 History of Social function [facility] Start: 09-10-2022 End: 12-14-2024 Tobacco use panel [facility] Start: 03-21-2012 Adult Depression Screening Assessment 0 [facility] Start: 04-26-2019 Gender identity Identifies as female gender (finding) [facility] Start: 04-26-2019 Sexual orientation Heterosexual (fin drake) [facility] How often to you hav e a drink containing alcohol? Monthly or less [facility] How many standard drinks containing alcohol do you have on a typical day? 1 or 2 [facility] How often do you hav e 6 or more drinks on 1 occasion? Less than monthly [facility] Functional Status Date Assessment Result Facility 12-14-2024 Total score [AUDIT-C] 2 12/15/19 3:25 PM EDT Denisa Suarez, MEIR [facility] 08-08-2013 Are you deaf, or do you have serious difficulty hearing No 08/08/2013 11:31 AM Malaika Gaines RN No [facility] 08-08-2013 Are you blind, or do you have serious difficulty seeing, even when wearing glasses No 08/08/2013 11:31 AM Malaika Gaines RN No [facility] 08-08-2013 Do you have serious difficulty walking or climbing stairs No 08/08/2013 11:31 AM Malaika Gaines RN No [facility] 08-08-2013 Do you have difficul ty dressing or bathing No 08/08/2013 11:31 AM Malaika Gaines RN No [facility] 08-08-2013 Because of a physica l, mental, or emotional condition, do you have difficulty doing errands alone such as visiting a physician's office or shopping No 08/08/2013 11:31 AM Malaika Gaines RN No [facility] Mental Status Date Assessment Result Facility 08-08-2013 Because of a physica l, mental, or emotional condition, do you have serious difficulty concentrating, remembering, or making decisions No 08/08/2013 11:31 AM Malaika Gaines RN No [facility] Clinical Notes 08-29-2021 to 01-02-2025 Telephone Encounter - Karen Ram MD - 01/02/2025 11:43 AM EDTTelephone Encounter - Karen Ram MD - 01/02/2025 11:43 AM Terri Ibarra DO - 12/28/2024 4:28 PM EDT Note Date & Type Note Facility 01-02-2025 Telephone encounter Note I have reviewed and approved the localization plan. Images dated 12/16/2024 are annotated. Recommended guidance modality: US/stereo. Radiologist: Karen Ram MD [facility] Work Phone: 01-02-2025 Miscellaneous Notes I have reviewed and approved the localization plan. Images dated 12/16/2024 are annotated. Recommended guidance modality: US/stereo. Radiologist: Karen Ram MD documented in this encounter [facility] 12-28-2024 Note HNO ID: [id number] Author: TERRI MUÑOZ, DO Service: ? Author Type: Physician Type: Progress Notes Filed: 12/28/2024 16:30 Note Text: GENERAL SURGERY FOLLOW UP Recording using [employer] software for draft documentation of the visit was discussed with the patient/authorized healthcare sales representative; all questions welcomed and answered. 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 Vicki recently underwent a breast biopsy, which revealed atypical lobular hyperplasia in the right breast at the 11:30 to 12:00 position, 5 cm from the nipple. The lesion measures 0.7 cm x 0.7 cm x 0.4 cm. She is accompanied by a family member and is seeking further information and next steps regarding the diagnosis. 10 point review of systems completed and is otherwise negative On exam: 12/28/24 1429 Temp: 36.4 ?C (97.5 ?F) TempSrc: Temporal Gen: NAD, well-nourished Lungs: unlabored breathing, bilateral chest rise Breast: Right breast biopsy site healing well. Suture removed. No signs of infection. Tests - Right Breast Core Needle Biopsy: Pathology revealed a benign lesion with atypical lobular hyperplasia (higher risk lesion) Imaging - Right Breast Ultrasound: Lesion measuring 0.7 ? 0.7 ? 0.4 cm at the 11:30 to 12:00 position, 5 cm from the nipple Assessment ASSESSMENT Atypical lobular hyperplasia (alh) of right breast (primary encounter diagnosis) RECOMMENDATION 1. Atypical lobular hyperplasia (ALH) of right breast (N60.91) Pathology from core biopsy of right breast lesion (11:30-12:00 position, 5 cm from nipple, measuring 0.7 x 0.7 x 0.4 cm) confirmed atypical lobular hyperplasia, a benign but higher-risk lesion. - Order Alanna [employer] marker placement by radiology prior to surgery. - Schedule excisional biopsy at [facility]; same-day procedure under sedation. - Educated patient on procedure steps, including marker placement, excision with 1-2 mm margin, intraoperative radiology confirmation, and pathology review. - Discussed risks and benefits, including potential for positive margins and need for re-excision, and rationale for excision to reduce future malignancy risk. - Instructed patient to wear a supportive bra day and night for 5 days post-op, avoid heavy lifting for 1-2 weeks, and avoid submerging incision in water for 2 weeks. - Provided contact information for any additional questions. Terri Muñoz DO December 28, 2024 4:29 PM [facility] 12-28-2024 History of Presen t illness Narrative Images from the original note were not included. GENERAL SURGERY FOLLOW UP Recording using [employer] software for draft documentation of the visit was discussed with the patient/authorized healthcare sales representative; all questions welcomed and answered. 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 Vicki recently underwent a breast biopsy, which revealed atypical lobular hyperplasia in the right breast at the 11:30 to 12:00 position, 5 cm from the nipple. The lesion measures 0.7 cm x 0.7 cm x 0.4 cm. She is accompanied by a family member and is seeking further information and next steps regarding the diagnosis. 10 point review of systems completed and is otherwise negative On exam: 12/28/24 1429 Temp: 36.4 C (97.5 F) TempSrc: Temporal Gen: NAD, well-nourished Lungs: unlabored breathing, bilateral chest rise Breast: Right breast biopsy site healing well. Suture removed. No signs of infection. Tests - Right Breast Core Needle Biopsy: Pathology revealed a benign lesion with atypical lobular hyperplasia (higher risk lesion) Imaging - Right Breast Ultrasound: Lesion measuring 0.7 0.7 0.4 cm at the 11:30 to 12:00 position, 5 cm from the nipple Assessment ASSESSMENT Atypical lobular hyperplasia (alh) of right breast (primary encounter diagnosis) RECOMMENDATION 1. Atypical lobular hyperplasia (ALH) of right breast (N60.91) Pathology from core biopsy of right breast lesion (11:30-12:00 position, 5 cm from nipple, measuring 0.7 x 0.7 x 0.4 cm) confirmed atypical lobular hyperplasia, a benign but higher-risk lesion. - Order Alanna [employer] marker placement by radiology prior to surgery. - Schedule excisional biopsy at [facility]; same-day procedure under sedation. - Educated patient on procedure steps, including marker placement, excision with 1-2 mm margin, intraoperative radiology confirmation, and pathology review. - Discussed risks and benefits, including potential for positive margins and need for re-excision, and rationale for excision to reduce future malignancy risk. - Instructed patient to wear a supportive bra day and night for 5 days post-op, avoid heavy lifting for 1-2 weeks, and avoid submerging incision in water for 2 weeks. - Provided contact information for any additional questions. Terri Muñoz DO December 28, 2024 4:29 PM documented in this encounter [facility] 12-28-2024 Instructions Terri Muñoz DO - 12/28/2024 3:00 PM EDT We discussed your recent biopsy results and the next steps for treatment: - Your pathology results showed atypical lobular hyperplasia, which is a higher-risk lesion but not cancer. To reduce the risk of progression, I recommend excising the lesion. - The lesion is located in your right breast at the 11:30 to 12:00 position, 5 cm from the nipple, and measures 0.7 x 0.7 x 0.4 cm. We discussed the excision procedure: - Radiology will place a Alanna [employer] marker in the lesion site before surgery. This marker will help guide the excision and ensure we remove the correct tissue. The radiology department will call you to schedule this placement, which can occur anytime before the surgery. - The surgery will be a same-day procedure performed at [facility]. You will need a ride to and from the surgery, as you will receive sedation. - During the procedure, I will make a small incision around the areola to remove the lesion and ensure clear margins. The tissue will be sent to pathology for further evaluation. - I will close the incision with absorbable stitches under the skin, and skin glue will be applied on top. You will be provided with a surgical bra that clips in the front, or you may use one you already own. We discussed post-operative care and restrictions: - Wear a bra that clips in the front, morning and night, for the first 5 days after surgery to support the breast tissue and minimize fluid collection. - Avoid heavy lifting with the affected arm for 1-2 weeks, depending on how you feel and how you heal. - Do not submerge the incision in water (e.g., pools, hot tubs, or bathtubs) for 2 weeks. Showers are okay. - The procedure itself will take about 30-45 minutes, but you should plan for several hours at the facility, including preparation and recovery time. Next steps: - I have placed the order for the Al[employer] marker placement. Radiology will contact you to schedule this. - Once the marker placement is scheduled, our central scheduler, Rico, will call you to arrange the surgery date. We aim to complete the procedure within the next month. If you have any additional questions or concerns, please call our office using the number at the top of your paperwork. documented in this encounter [facility] 12-16-2024 History of Presen t illness Narrative Radiology Service Progress Note PATIENT NAME: Vicki Kenney DATE OF SERVICE: December 16, 2024 TIME: 3:17 PM PATIENT IDENTITY VERIFICATION COMPLETED USING TWO (2) IDENTIFIERS: Name and Date of confirmed by patient verbally. FALL SCREENING: Has the patient had 2 falls in the last year or 1 fall with injury or currently using an Ambulatory Assistive Device (Walker, Cane, Wheelchair, Crutches, etc.)? No PATIENT GENDER DATA: Assigned female at . status: : No status: NO. PATIENT RELEVANT IMPLANT DATA REVIEWED: Not Applicable PATIENT PRESENTS WITH AN IMPLANTABLE OR ATTACHED ADJUNCT POLITICAL SCIENCE INSTRUCTOR: No RADIOLOGY DEPARTMENT: Mammography PERIPHERAL IV DATA: Not applicable SIGNED BY: RT Carter(R) December 16, 2024 3:17 PM documented in this encounter [facility] 12-16-2024 Note HNO ID: [id number] Author: KARUNA MONTES DE OCA RT(R) Service: ? Author Type: Technologist Type: Progress Notes Filed: 12/16/2024 15:17 Note Text: Radiology Service Progress Note PATIENT NAME: Vicki Kenney DATE OF SERVICE: December 16, 2024 TIME: 3:17 PM PATIENT IDENTITY VERIFICATION COMPLETED USING TWO (2) IDENTIFIERS: Name and Date of confirmed by patient verbally. FALL SCREENING: Has the patient had 2 falls in the last year or 1 fall with injury or currently using an Ambulatory Assistive Device (Walker, Cane, Wheelchair, Crutches, etc.)? No PATIENT GENDER DATA: Assigned female at . status: : No status: NO. PATIENT RELEVANT IMPLANT DATA REVIEWED: Not Applicable PATIENT PRESENTS WITH AN IMPLANTABLE OR ATTACHED ADJUNCT POLITICAL SCIENCE INSTRUCTOR: No RADIOLOGY DEPARTMENT: Mammography PERIPHERAL IV DATA: Not applicable SIGNED BY: RT Carter(Ryan) December 16, 2024 3:17 PM [facility] 12-16-2024 History and physical note Breast Services- History and Physical SERVICE DATE: 12/16/2024 REASON FOR TODAY'S VISIT: Right breast lesion SUBJECTIVE: HISTORY of PRESENT ILLNESS: Vicki Kenney is a 64-year-old female presenting for evaluation of a right breast abnormality identified on recent imaging. Vicki recently underwent a screening mammogram at [facility], which revealed an abnormality in the right breast. Subsequent diagnostic mammogram and ultrasound identified a cluster of cysts located between 11:30 and 12:00 o'clock, approximately 5 cm from the nipple. This is the first time an abnormality has been detected on her breast imaging. She has been receiving regular mammograms at [facility], with the last normal imaging performed in 2013. She denies any previous masses, lesions, or abnormalities in her breasts. Vicki expresses a preference for a biopsy over waiting 6 months for follow-up imaging, citing anxiety about the potential for malignancy. She has no family history of breast or ovarian issues and denies any known family history of breast cysts. She has been on hormone replacement therapy since February of the previous year. She denies lightheadedness, dizziness, changes in vision or hearing, chest pain, dyspnea, cough, wheezing, abdominal pain, nausea, emesis, changes in bowel habits, changes in urination, numbness or tingling in her hands or feet, new skin lesions, or rashes. PAST MEDICAL HISTORY: PAST MEDICAL HISTORY Diagnosis Date Excessive menses Headache(784.0) MIGRAINES cyclic with aura Irregular menses Kidney stone PAST SURGICAL HISTORY: PAST SURGICAL HISTORY Procedure Laterality Date ANES HRNA RPR UPR ABD LMBR&VENTRAL HERNIA&DEHISC 1993 herniated disc x1 ANES HRNA RPR UPR ABD LMBR&VENTRAL HERNIA&DEHISC 1995 herniated disc x2 DELIVERY ONLY TIMES TWO 2012 PAST SURGICAL HISTORY OF laser surgery both eyes FAMILY HISTORY: FAMILY HISTORY Problem Relation Age of Onset Cancer Mother ; colon Hypertension Mother Pancreatic Cancer Mother Lymphoma Mother Coronary Artery Disease Father R/T [place] SOCIAL HISTORY: 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 progesterone micronized (PROMETRIUM) 200 mg capsule Take 200 mg by mouth once daily. Lactobacillus acidophilus (PROBIOTIC ACIDOPHILUS PO) Take by mouth. eletriptan (RELPAX) 40 mg tablet Take 1 tablet by mouth as needed (for migraine headache). take 1 at onset of migraine, may repeat in 2 hours if necessary. No more than 2 pills in 24 hours or 2 days/week naproxen (NAPROSYN) 500 mg tablet take 1 tablet by mouth two to three times a day if needed for headache - MAX OF 10 DAYS PER MONTH divalproex ER (DEPAKOTE ER) 500 mg 24 hr tablet take 2 PO at bedtime for 5 days then 1 PO at bedtime for 5 days, then stop. magnesium oxide (MAG-OX) 400 mg (241.3 mg magnesium) tablet Take 1 tablet by mouth once daily. riboflavin, vitamin B2, (VITAMIN B-2) 100 mg tab Take 2 tablets by mouth twice daily. Coenzyme Q10 150 mg cap Take 1 capsule by mouth twice daily. TENS unit and electrodes (CEFALY) cmpk 1 Package as needed (for migraine headache). buPROPion XL (WELLBUTRIN XL) 300 mg 24 hr tablet ALLERGIES: ALLERGIES No Known Allergies REVIEW OF SYSTEMS: Eyes: (-) vision changes Ears/Nose/Mouth/Throat: (-) hearing changes Breast: (-) palpable breast mass, (-) breast tenderness Neurological: (-) extremity numbness, (-) extremity tingling OBJECTIVE: PHYSICAL EXAM: BP 126/82 (BP Position: Sitting) Pulse 117 Temp 37.2 C (98.9 F) Wt 75.3 kg (166 lb) LMP 04/30/2012 SpO2 97% BMI 29.41 kg/m Body mass index is 29.41 kg/m . General: No acute distress. Breast: No dimpling or retraction of skin bilaterally; no palpable masses or abnormalities; no nipple discharge; no axillary lymphadenopathy; bedside ultrasound performed, cysts visualized. IMAGING: Screening Mammogram - performed at [facility]SH and report not available in EMR Diagnostic Mammogram 11/02/2024 ([facility]) Tissue Density: The breasts are heterogeneously dense, which may obscure small masses. Follow up examination performed for the asymmetry in the right breast seen on examination on 10/26/2024. On the present examination, the asymmetry is the superior right breast at middle depth partially effaces Ultrasound 11/02/2024 ([facility]) Ultrasound performed of the superior right breast. There is a cyst cluster in the right breast at 11:30-12 o'clock, 5cm from the nipple measuring 0.7 x 0.7 x 0.4cm. This is probable correlate for the mammographic finding. MRI - None PATHOLOGY: Pending ASSESSMENT: Vicki Kenney is a 64 year old female presenting to office for evaluation of a right breast lesion found on routine imaging. PLAN: -Performed right breast core needle biopsy under ultrasound guidance in office. -Please see procedure note for details -Return to office in 1-2 weeks to discuss results and next steps. My recommendation will be communicated back to the requesting physician by way of the shared record. Terri Muñoz, DO General Surgery [1] Social History Tobacco Use Smoking status: Never Smokeless tobacco: Never Vaping Use Vaping status: Never Used Substance Use Topics Alcohol use: Yes Comment: occasional Drug use: No [facility] 12-16-2024 History and physical note Breast Services- History and Physical SERVICE DATE: 12/16/2024 REASON FOR TODAY'S VISIT: Right breast lesion SUBJECTIVE: HISTORY of PRESENT ILLNESS: Vicki Kenney is a 64-year-old female presenting for evaluation of a right breast abnormality identified on recent imaging. Vicki recently underwent a screening mammogram at [facility], which revealed an abnormality in the right breast. Subsequent diagnostic mammogram and ultrasound identified a cluster of cysts located between 11:30 and 12:00 o'clock, approximately 5 cm from the nipple. This is the first time an abnormality has been detected on her breast imaging. She has been receiving regular mammograms at [facility], with the last normal imaging performed in 2013. She denies any previous masses, lesions, or abnormalities in her breasts. Vicki expresses a preference for a biopsy over waiting 6 months for follow-up imaging, citing anxiety about the potential for malignancy. She has no family history of breast or ovarian issues and denies any known family history of breast cysts. She has been on hormone replacement therapy since February of the previous year. She denies lightheadedness, dizziness, changes in vision or hearing, chest pain, dyspnea, cough, wheezing, abdominal pain, nausea, emesis, changes in bowel habits, changes in urination, numbness or tingling in her hands or feet, new skin lesions, or rashes. PAST MEDICAL HISTORY: PAST MEDICAL HISTORY Diagnosis Date Excessive menses Headache(784.0) MIGRAINES cyclic with aura Irregular menses Kidney stone PAST SURGICAL HISTORY: PAST SURGICAL HISTORY Procedure Laterality Date ANES HRNA RPR UPR ABD LMBR&VENTRAL HERNIA&DEHISC 1993 herniated disc x1 ANES HRNA RPR UPR ABD LMBR&VENTRAL HERNIA&DEHISC 1995 herniated disc x2 DELIVERY ONLY TIMES TWO 2012 PAST SURGICAL HISTORY OF laser surgery both eyes FAMILY HISTORY: FAMILY HISTORY Problem Relation Age of Onset Cancer Mother ; colon Hypertension Mother Pancreatic Cancer Mother Lymphoma Mother Coronary Artery Disease Father R/T [place] SOCIAL HISTORY: 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 progesterone micronized (PROMETRIUM) 200 mg capsule Take 200 mg by mouth once daily. Lactobacillus acidophilus (PROBIOTIC ACIDOPHILUS PO) Take by mouth. eletriptan (RELPAX) 40 mg tablet Take 1 tablet by mouth as needed (for migraine headache). take 1 at onset of migraine, may repeat in 2 hours if necessary. No more than 2 pills in 24 hours or 2 days/week naproxen (NAPROSYN) 500 mg tablet take 1 tablet by mouth two to three times a day if needed for headache - MAX OF 10 DAYS PER MONTH divalproex ER (DEPAKOTE ER) 500 mg 24 hr tablet take 2 PO at bedtime for 5 days then 1 PO at bedtime for 5 days, then stop. magnesium oxide (MAG-OX) 400 mg (241.3 mg magnesium) tablet Take 1 tablet by mouth once daily. riboflavin, vitamin B2, (VITAMIN B-2) 100 mg tab Take 2 tablets by mouth twice daily. Coenzyme Q10 150 mg cap Take 1 capsule by mouth twice daily. TENS unit and electrodes (CEFALY) cmpk 1 Package as needed (for migraine headache). buPROPion XL (WELLBUTRIN XL) 300 mg 24 hr tablet ALLERGIES: ALLERGIES No Known Allergies REVIEW OF SYSTEMS: Eyes: (-) vision changes Ears/Nose/Mouth/Throat: (-) hearing changes Breast: (-) palpable breast mass, (-) breast tenderness Neurological: (-) extremity numbness, (-) extremity tingling OBJECTIVE: PHYSICAL EXAM: BP 126/82 (BP Position: Sitting) Pulse 117 Temp 37.2 C (98.9 F) Wt 75.3 kg (166 lb) LMP 04/30/2012 SpO2 97% BMI 29.41 kg/m Body mass index is 29.41 kg/m . General: No acute distress. Breast: No dimpling or retraction of skin bilaterally; no palpable masses or abnormalities; no nipple discharge; no axillary lymphadenopathy; bedside ultrasound performed, cysts visualized. IMAGING: Screening Mammogram - performed at OSH and report not available in EMR Diagnostic Mammogram 11/02/2024 ([facility]) Tissue Density: The breasts are heterogeneously dense, which may obscure small masses. Follow up examination performed for the asymmetry in the right breast seen on examination on 10/26/2024. On the present examination, the asymmetry is the superior right breast at middle depth partially effaces Ultrasound 11/02/2024 ([facility]) Ultrasound performed of the superior right breast. There is a cyst cluster in the right breast at 11:30-12 o'clock, 5cm from the nipple measuring 0.7 x 0.7 x 0.4cm. This is probable correlate for the mammographic finding. MRI - None PATHOLOGY: Pending ASSESSMENT: Vicki Kenney is a 64 year old female presenting to office for evaluation of a right breast lesion found on routine imaging. PLAN: -Performed right breast core needle biopsy under ultrasound guidance in office. -Please see procedure note for details -Return to office in 1-2 weeks to discuss results and next steps. My recommendation will be communicated back to the requesting physician by way of the shared record. Terri Muñoz DO General Surgery [1] Social History Tobacco Use Smoking status: Never Smokeless tobacco: Never Vaping Use Vaping status: Never Used Substance Use Topics Alcohol use: Yes Comment: occasional Drug use: No documented in this encounter [facility] 12-14-2024 Instructions Terri Muñoz DO - 12/14/2024 4:51 PM EDT We discussed your breast imaging and findings: - Your recent imaging, including a diagnostic mammogram and ultrasound, showed a cluster of cysts in the right breast, located between 11:30 and 12 o clock, approximately 5 cm from the nipple. These appear benign based on the imaging characteristics. - You expressed a preference to proceed with a biopsy rather than waiting for 6-month follow-up imaging due to concerns about waiting. I understand and support this decision. - I performed a bedside ultrasound today to locate the area of concern, and we proceeded with an ultrasound-guided core needle biopsy of the right breast. - The procedure involved numbing the area, taking small tissue samples, and placing a biopsy clip at the site for future reference. - You may experience some bruising at the biopsy site, which should resolve within 1-2 weeks. - A single stitch was placed, and Steri-Strips were applied. The Steri-Strips will fall off on their own, and the stitch may dissolve or fall out before your follow-up. - Avoid submerging the biopsy site in water (e.g., swimming or baths) until it has healed. Showering is fine. We discussed follow-up care: - You will need a limited mammogram to confirm the placement of the biopsy clip. This can be done as a walk-in at our radiology department. You plan to complete this on Thursday before leaving for your trip. - Biopsy results typically take about one week. We will call you with the results once they are available. - You will follow up in two weeks for evaluation of the biopsy site and removal of the stitch if it has not already fallen out. We discussed breast self-exams: - I recommend performing monthly breast self-exams to monitor for any new changes. A helpful reminder is to perform the exam on the same day each month, such as the day of your birthday. Please contact our office if you experience any signs of infection at the biopsy site, such as redness, swelling, warmth, or drainage, or if you have any other concerns. The following instructions are important for you related to your office visit today with the [facility] General Surgeons. Instructions After OFFICE BASED BREAST BIOPSY Please do not take aspirin or other blood thinners for the next few days. After the procedure, Steri-Strips and a dressing will be placed on your small incision. The dressing may be removed in two to three days after the procedure. The Steri-Strips should be left in place until they fall off. If you have bleeding from the biopsy site, hold pressure with a clean gauze. If the bleeding continues, contact our office immediately. I recommend taking Advil or Tylenol for the discomfort. You should wear a comfortable but somewhat tight fitting bra. If you have significant bruising, an ice pack may improve your discomfort. Please make an appointment to return to our office in 2 weeks. Suture removal of one simple stitch at 2 week follow up. If you note any additional difficulties, questions, or concerns, you should contact our office immediately @ [phone] and ask to be transferred to the General Surgery department. documented in this encounter [facility] 12-14-2024 Note HNO ID: [id number] Author: EMILY SRINIVASAN LPN Service: ? Author Type: Licensed Nurse Type: Procedures Filed: 12/27/2024 09:56 Note Text: UNIVERSAL PROTOCOL / SAFETY CHECKLIST Procedure to be Performed: Right breast ultrasound guided core needle biopsy Sign In: A Moment of CARE was completed. Appropriate PPE (Personal Protective Equipment) worn by all providers involved with the procedure. Special equipment not required. Patient/Surrogate Stated/Verified: Patient name, Date of , Relevant allergies, and The intended procedure Time Out: Relevant labs, photos, and/or imaging studies have been reviewed. Intended patient and procedure match the source document(s) (e.g. consent, HANDP, associated studies [imaging, pathology]) match the intended patient and procedure. Consent obtained and matches the intended procedure. Yes. Correct side/site has been marked and visible. Medications required for this procedure are verified. Fire risk assessed and is not applicable. Implants: Correct implant(s) confirmed including size and side. Expiration date(s) reviewed. Sign Out: Specimens are all correctly labeled and sent. All instruments, equipment, possible retained foreign bodies are accounted for. Yes. The post-procedure plan of care has been communicated to the patient or surrogate. Emily Srinivasan LPN [facility] 12-14-2024 Procedure note UNIVERSAL PROTOCOL / SAFETY CHECKLIST Procedure to be Performed: Right breast ultrasound guided core needle biopsy Sign In: A Moment of CARE was completed. Appropriate PPE (Personal Protective Equipment) worn by all providers involved with the procedure. Special equipment not required. Patient/Surrogate Stated/Verified: Patient name, Date of , Relevant allergies, and The intended procedure Time Out: Relevant labs, photos, and/or imaging studies have been reviewed. Intended patient and procedure match the source document(s) (e.g. consent, H&P, associated studies [imaging, pathology]) match the intended patient and procedure. Consent obtained and matches the intended procedure. Yes. Correct side/site has been marked and visible. Medications required for this procedure are verified. Fire risk assessed and is not applicable. Implants: Correct implant(s) confirmed including size and side. Expiration date(s) reviewed. Sign Out: Specimens are all correctly labeled and sent. All instruments, equipment, possible retained foreign bodies are accounted for. Yes. The post-procedure plan of care has been communicated to the patient or surrogate. Emily Srinivasan LPN [facility] 12-14-2024 Procedure note UNIVERSAL PROTOCOL / SAFETY CHECKLIST Procedure to be Performed: Right breast ultrasound guided core needle biopsy Sign In: A Moment of CARE was completed. Appropriate PPE (Personal Protective Equipment) worn by all providers involved with the procedure. Special equipment not required. Patient/Surrogate Stated/Verified: Patient name, Date of , Relevant allergies, and The intended procedure Time Out: Relevant labs, photos, and/or imaging studies have been reviewed. Intended patient and procedure match the source document(s) (e.g. consent, H&P, associated studies [imaging, pathology]) match the intended patient and procedure. Consent obtained and matches the intended procedure. Yes. Correct side/site has been marked and visible. Medications required for this procedure are verified. Fire risk assessed and is not applicable. Implants: Correct implant(s) confirmed including size and side. Expiration date(s) reviewed. Sign Out: Specimens are all correctly labeled and sent. All instruments, equipment, possible retained foreign bodies are accounted for. Yes. The post-procedure plan of care has been communicated to the patient or surrogate. Emily Srinivasan LPN BEDSIDE PROCEDURE NOTE PROCEDURE DATE: December 14, 2024 PROCEDURE START TIME: 4:08PM PRIMARY PROCEDURALIST: Terri Muñoz DO MAJOR GIFTS MANAGER(S): Emily Srinivasan LPN INFORMED CONSENT: Informed Consent obtained and on the chart UNIVERSAL PROTOCOL / SAFETY CHECKLIST Sign in Communication: Completed Time Out: Team Confirms the Correct Patient, Correct Procedure, Correct Site and Site Marking, Correct Position (if applicable), Prep and Dry Time (if applicable). Time: 04:08PM Affirmation of Time Out: YES Sign Out Discussion: Completed PROCEDURE: The patient was brought to the procedure room and positioned supine on the procedure table. A final timeout was performed. The right breast mass was identified with bedside ultrasound and marked. The right breast was prepped and draped in the usual sterile fashion. 10 cc of 1% lidocaine with epinephrine was injected for local under visualization. An 11 blade scalpel was used to create a stab incision. A 14 gauge core needle biopsy device was used to obtain 3 core needle biopsies. The biopsy specimens were placed in formalin and sent for pathology. Images were uploaded to the patient's electronic medical chart. An UltraClip Dual Trigger breast biopsy marker was then placed under ultrasound guidance. A 4-0 chromic suture was used to close the incision with one figure-of-8 suture. Hemostasis was maintained throughout the procedure. The wound was dressed with steri-strips and an Opsite dressing. The patient tolerated the procedure well with no immediate complications. A mammogram was ordered to confirm biopsy clip placement. All needle and instrument counts were correct. SIGNATURE: Terri Muñoz DO PATIENT NAME: Vicki Kenney DATE: December 14, 2024 TIME: 4:08 PM PAGER/CONTACT #: [phone] documented in this encounter [facility] 12-14-2024 Note HNO ID: [id number] Author: TERRI MUÑOZ DO Service: ? Author Type: Physician Type: Procedures Filed: 12/27/2024 09:56 Note Text: BEDSIDE PROCEDURE NOTE PROCEDURE DATE: December 14, 2024 PROCEDURE START TIME: 4:08PM PRIMARY PROCEDURALIST: Terri Muñoz DO MAJOR GIFTS MANAGER(S): Emily Srinivasan LPN INFORMED CONSENT: Informed Consent obtained and on the chart UNIVERSAL PROTOCOL / SAFETY CHECKLIST Sign in Communication: Completed Time Out: Team Confirms the Correct Patient, Correct Procedure, Correct Site and Site Marking, Correct Position (if applicable), Prep and Dry Time (if applicable). Time: 04:08PM Affirmation of Time Out: YES Sign Out Discussion: Completed PROCEDURE: The patient was brought to the procedure room and positioned supine on the procedure table. A final timeout was performed. The right breast mass was identified with bedside ultrasound and marked. The right breast was prepped and draped in the usual sterile fashion. 10 cc of 1% lidocaine with epinephrine was injected for local under visualization. An 11 blade scalpel was used to create a stab incision. A 14 gauge core needle biopsy device was used to obtain 3 core needle biopsies. The biopsy specimens were placed in formalin and sent for pathology. Images were uploaded to the patient's electronic medical chart. An UltraClip Dual Trigger breast biopsy marker was then placed under ultrasound guidance. A 4-0 chromic suture was used to close the incision with one figure-of-8 suture. Hemostasis was maintained throughout the procedure. The wound was dressed with steri-strips and an Opsite dressing. The patient tolerated the procedure well with no immediate complications. A mammogram was ordered to confirm biopsy clip placement. All needle and instrument counts werecorrect. SIGNATURE: Terri Muñoz DO PATIENT NAME: Vicki Kenney DATE: December 14, 2024 TIME: 4:08 PM PAGER/CONTACT #: [phone] [facility] 12-14-2024 Procedure note BEDSIDE PROCEDURE NOTE PROCEDURE DATE: December 14, 2024 PROCEDURE START TIME: 4:08PM PRIMARY PROCEDURALIST: Terri Muñoz DO MAJOR GIFTS MANAGER(S): Emily Srinivasan LPN INFORMED CONSENT: Informed Consent obtained and on the chart UNIVERSAL PROTOCOL / SAFETY CHECKLIST Sign in Communication: Completed Time Out: Team Confirms the Correct Patient, Correct Procedure, Correct Site and Site Marking, Correct Position (if applicable), Prep and Dry Time (if applicable). Time: 04:08PM Affirmation of Time Out: YES Sign Out Discussion: Completed PROCEDURE: The patient was brought to the procedure room and positioned supine on the procedure table. A final timeout was performed. The right breast mass was identified with bedside ultrasound and marked. The right breast was prepped and draped in the usual sterile fashion. 10 cc of 1% lidocaine with epinephrine was injected for local under visualization. An 11 blade scalpel was used to create a stab incision. A 14 gauge core needle biopsy device was used to obtain 3 core needle biopsies. The biopsy specimens were placed in formalin and sent for pathology. Images were uploaded to the patient's electronic medical chart. An UltraClip Dual Trigger breast biopsy marker was then placed under ultrasound guidance. A 4-0 chromic suture was used to close the incision with one figure-of-8 suture. Hemostasis was maintained throughout the procedure. The wound was dressed with steri-strips and an Opsite dressing. The patient tolerated the procedure well with no immediate complications. A mammogram was ordered to confirm biopsy clip placement. All needle and instrument counts were correct. SIGNATURE: Terri Muñoz DO PATIENT NAME: Vicki Keneny DATE: December 14, 2024 TIME: 4:08 PM PAGER/CONTACT #: [phone] [facility] 10-13-2024 Evaluation note Diagnosis Onset Date Resolution Hormone replacement therapy acute October 13, 2024 3:07pm Encounter for routine gynecological examination noneactive October 13, 2024 3:07pm [facility] Work Phone: [phone]) 282-797607-31-2023 Miscellaneous Notes* Telephone Encounter - Kendy Romero APRN.CNP - 11/17/2022 10:08 AM EDT The following approved medication requests have been transmitted electronically. Requested Prescriptions Signed Prescriptions Disp Refills atogepant (QULIPTA) 60 mg tablet 30 tablet 2 Sig: Take 1 tablet (60 mg) by mouth once daily. Authorizing Provider: KENDY ROMERO APRN.CNP * Telephone Encounter - Karuna [...] by mouth once daily. [facility] Miscellaneous Notes* Telephone Encounter - Kendy Romero APRN.CNP - 11/12/2022 4:46 PM EDT [...] 24 hours or 2 days/week Authorizing Provider: KENDY ROMERO APRN.CNP * Telephone Encounter - Karuna [...] hours or 2 days/week [facility] documented in this encounterOhio[facility] Miscellaneous Notes* Telephone Encounter - Kendy Romero APRN.CNP - 12/30/2021 9:50 AM EDT The following approved medication requests have been transmitted electronically. Requested Prescriptions Signed Prescriptions Disp Refills naproxen (NAPROSYN) 500 mg tablet 30 tablet 1 Sig: take 1 tablet by mouth two to three times a day if needed for headache - MAX OF 10 DAYS PER MONTH Authorizing Provider: KENDY ROMERO APRN.CNP * Telephone Encounter - Georgie [...] [facility] documented in this encounter[facility] Instructions* Patient Instructions* Kenyd Romero APRN.CNP - 08/29/2021 9:47 AM EDT -- try Cefaly for prevention -- Eletriptan 40 mg: take 1 at onset of migraine, may repeat in 2 hours if necessary. No more than 2 pills in 24 hours or 2 days/week -- STOP Topamax -- next steps for prevention: nurtec, ubrelvy, gabapentin documented in this encounterOhio[facility] History of Present illness Narrative* Kendy Romero APRN.CNP - 08/29/2021 9:30 AM EDT [facility] - [facility] Visit Last Visit: 01/02/2021, Kendy Romero APRN.CNP Accompanied by: Self During this [...] - patient will let me know via [employer] if this needs to go to another [...] Review of systems unchanged. Examination: Vital Signs: [facility] 04/30/2012 General: well appearing, in no acute distress, alert Pain Behaviors: no pain behaviors observed Neurological: Mental Status: Alert and oriented to person, place and time. Affect is normal. Speech is spontaneous and fluent without dysarthria, normal in rate, volume and articulation and clear, coherent, and relevant. Short and longterm memory, cognition and general fund of knowledge [...] which included preparing to see the patient, [id number] patient care, completing clinical documentation, obtaining and/or reviewing separately obtained history, performing a medically appropriate examination, counseling and educating the patient/family/caregiver and ordering medications, tests, or procedures. Medical Decision Making The patient has my contact information and my chart sign up information. I performed this clinical encounter by utilizing a real time telehealth video connection between mylocation and the patient's location. The patient's location was confirmed during the visit. I obtained verbal consent from the patient to perform this clinical encounter utilizing video and prepared the patient by answering any questions they had about the telehealth. I addressed patient's questions and concerns in detail in regards to the chief complaint today in addition to all other comorbidities. Kendy Romero APRN.CNP documented in this encounterOhio[facility] HospitalEvalunem[facility] foundation note* Diagnosis Onset Date Resolution Status Atrophic vaginitis acute [facility] Work Phone: Evaluation note* Diagnosis Migraine without aura and without status migrainosus, not intractable- Primary Migraine without aura, without mention of intractable migraine without mention of status migrainosus [facility] Diagnosis Onset Date Resolution Status Atrophic vaginitis acute Encounter for routine gynecological examination noneactive [facility] Work Phone: Evaluation note* Diagnosis Onset Date Resolution Status Admit Date Encounter for routine gynecological examination noneactive September 192024 3:07pm [facility] Work Phone: Evaluation note* Diagnosis Breast cyst, right [facility] encounter [facility]* Diagnosis Breast cyst, right- Primary Family history of malignant neoplasm of breast Encounter for screening mammogram for malignant neoplasm of breast Other screening mammogram Hormone replacement therapy (HRT) Need for prophylactic hormone replacement therapy (postmenopausal) documented [facility] this encounter [facility]* Diagnosis 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 (narrative)No reason for referral information availableFountain [facility] Work Phone: Reason for visit Narrative* Diagnostic Procedure Only (Routine) - Closed Specialty Diagnoses / Procedures Referred By Tonia silva Referred To Contact [facility] Diagnoses Breast cyst, right Procedures [facility] RIGHT DIAGNOSTIC MAMMOGRAPHY COMPUTER-AIDED DETCJ UNI Terri Muñoz, DO [address] [place] [address] Phone: tel: fax: [facility] [address] [place] [phone] Referral ID Status Reason Start Date Expiration Date V isits Requested Visits Authorized [id number] Closed Auto-Generate d Referral 12/16/2024 04/19/2025 1 1 [facility] Chief Complaint and Reason for Visit Chief Complaint dryness, burning, pa inful intercourse E-ORDER Reason for Visit Atrophic vaginitis Chief Complaint Annual (SURGICAL ASSIST) SCREENING Reason for Visit Atrophic vaginitis Encounter for routine gynecological examination Chief Complaint Admit Date Annual (SURGICAL ASSIST) October 13, 2024 3:07 pm Reason for Visit Admit Date Encounter for routine gynecological exam ination October 13, 2024 3:07pm Chief Complaint Admit Date Annual (SURGICAL ASSIST) October 13, 2024 3:07 pm Screening for breast cancer October 26 12:15pm Reason for Visit Admit Date Hormone replacement therapy October 13, 2 025 3:07pm Encounter for routine gynecological exam ination October 13, 2024 3:07pm Chief Complaint Admit Date Annual (SURGICAL ASSIST) October 13, 2024 3:07 pm Screening for breast cancer October 26 12:15pm Other abnormal and inconclusive findings on diagno November 02, 2024 8:49am Family History No Family History Records Found [...] Procedures PROVIDER ORDERED FOLLOW UP OFFICE/OUTPATIENT [facility] MDM 60-74 MINUTES Kendy Romero APRN.[facility] [id number] [place] [address] Referral ID Status Reason Start Date Expiration Date Visits Requested Visits Authorized [id number] Authorized PCP Requested Referral 11/29/2021 08/29/2022 1 [...] or prosecute any alcohol or drug abuse patient.[facility] HospitalIn the event this information is protected by the Federal Confidentiality of Alcohol and Drug Abuse Patient Records regulations: The Federal rules restrict any use of the information to criminally investigate or prosecute any alcohol or drug abuse patient.[facility] HospitalIn the event this information is protected by the Federal Confidentiality of Alcohol and Drug Abuse Patient Records regulations: The Federal rules restrict any use of the information to criminally investigate or prosecute any alcohol or drug abuse patient.[facility] HospitalIn the event this information is protected by the Federal Confidentiality of Alcohol and Drug Abuse Patient Records regulations: The Federal rules restrict any use of the information to criminally investigate or prosecute any alcohol or drug abuse patient.[facility] HospitalIn the event this information is protected by the Federal Confidentiality of Alcohol and Drug Abuse Patient Records regulations: The Federal rules restrict any use of the information to criminally investigate or prosecute any alcohol or drug abuse patient.[facility] HospitalIn the event this information is protected by the Federal Confidentiality of Alcohol and Drug Abuse Patient Records regulations: The Federal rules restrict any use of the information to criminally investigate or prosecute any alcohol or drug abuse patient.[facility] Hospital[facility] the event this information is protected by the Federal Confidentiality of Alcohol and Drug Abuse Patient Records regulations: The Federal rules restrict any use of the information to criminally investigate or prosecute any alcohol or drug abuse patient.[facility] HospitalIn the event this information is protected by the Federal Confidentiality of Alcohol and Drug Abuse Patient Records regulations: The Federal rules restrict any use of the information to criminally investigate or prosecute any alcohol or drug abuse patient.[facility] HospitalIn the event this information is protected by the Federal Confidentiality of Alcohol and Drug Abuse Patient Records regulations: The Federal rules restrict any use of the information to criminally investigate or prosecute any alcohol or drug abuse patient.[facility] Reason for Visit (unrecogniz ed section and content) Reason Comments Follow Up Reason Comments Refill Request Reason Onset Date Comments Refill Request 11/12/2022 Reason Onset Date Comments Refill Request 11/16/2022 Reason Comments Consult Breast mass Reason Comments Breast Localization LOCALIZATION IMAGE Ryan BYRNE (Please do NOT submit until entire workup complete)(if > 3 reflectors to be placed in one breast, please review with radiologist) Vicki Kenney [id number]/ WORK- UP COMPLETE? Yes Order Placed Yes Right - Site 1 Location 11:30-12Clip Shape heartClip Migration NoPathology atypical lobular hyperplasiaPreferred Localization alanna* If clip migrated, please review with radiologistThis Form Has Been Completed B Care Teams (unrecognized sec tion and content) Knuckle Strap Sewer Relationship Specialty Start Date End Date Caridad Edmondson DO [address] [place] [address] PCP - General Family Practice 02/26/17 Knuckle Strap Sewer Relationship Specialty Start Date End Date Caridad Edmondson DO [address] [place] [address] PCP - General Family Practice 02/26/17 Knuckle Strap Sewer Relationship Specialty Start Date End Date Caridad Edmondson DO [address] [place] [address] PCP - General Family Medicine 02/26/17 Knuckle Strap Sewer Relationship Specialty Start Date End Date Caridad Edmondson DO [address] [place] [address] PCP - General Family Medicine 02/26/17 Team Status: Active Member Role Status Dates Dr. Caridad Edmondson DO Primary Care Provider Active Team Status: Inactive Member Role Status Dates Dr. Caridad Edmondson DO Primary Care Provider Active Start: October 13, 2024 End: October 13, 2024 Dr. Caridad Edmondson DO Referring Provider Active St art: October 13, 2024 End: October 13, 2024 Chel Erick TELEPHONE SEX WORKER, TELEPHONE SEX WORKER-C Attending Provider Active Start: October 13, 2024 [...] 2024 End: October 13, 2024 Chel Suarez TELEPHONE SEX WORKER, TELEPHONE SEX WORKER-C Attending Provider Active Start: October 13, 2024 End: October 13, 2024 Team Status: Inactive Member Role/Relationship Status Dates Dr. Caridad Edmondson DO Primary Care Provider Active Start: October 26, 2024 End: October 26, 2024 Chel Suarez TELEPHONE SEX WORKER, TELEPHONE SEX WORKER-C Attending Provider Active Start: October 26, 2024 End: October 26, 2024 Chel Suarez TELEPHONE SEX WORKER, TELEPHONE SEX WORKER-C Referring Provider Active Start: October 26, 2024 End: October 26, 2024 Team Status: Inactive Member Role/Relationship Status Dates Dr. Caridad Edmondson DO Primary Care Provider Active Start: November 02, 2024 End: November 02, 2024 Chel Suarez TELEPHONE SEX WORKER, TELEPHONE SEX WORKER-C Attending Provider Active Start: November 02, 2024 End: November 02, 2024 Chel Suarez TELEPHONE SEX WORKER, TELEPHONE SEX WORKER-C Referring Provider Active Start: November 02, 2024 End: November 02, 2024 Team Status: Inactive Member Role/Relationship Status Dates Dr. Caridad Edmondson DO Primary Care Provider Active Start: November 29, 2024 End: November 29, 2024 Dr. Caridad Edmondson DO Attending Provider Active St art: November 29, 2024 End: November 29, 2024 Knuckle Strap Sewer Relationship Specialty Start Date End Date Caridad Edmondson DO [address] [place] [address] PCP - General Family Medicine 02/26/17 Knuckle Strap Sewer Relationship Specialty Start Date End Date Caridad Edmondson DO [address] [place], [place] [id number] PCP - General Family Medicine 02/26/17 Knuckle Strap Sewer Relationship Specialty Start Date End Date Caridad Edmondson DO [address] [address] PCP - General Family Medicine 02/26/17 Knuckle Strap Sewer Relationship Specialty Start Date End Date Caridad Edmondson DO [address] [place] [id number] PCP - General Family Medicine 02/26/17 INFORMATION SOURCE (unrecogn ized section and content) DATE CREATED AUTHOR 01/03/2025 [facility] DATE CREATED AUTHOR 'S SAÚLIZ ATSHAHEEN 01/06/2025 [facility] FOR RECORDS PERTAINING TO PATIENTS WHO ARE [...] BE BASED ON THE PRIMARY CLINICAL RECORDS. [facility] [employer] [facility]. provides no warranty or guarantee of the accuracy or completeness of information in this document.
== END | disposition home or self-care (01) ==
LOC: PSN 06:48
PROVIDERS: PCP Family Medicine; Referring Provider Nurse Practitioner Family; Visit Provider Nurse Practitioner Family
DX: R06.02 Shortness of breath (principal)
CPT/HCPCS: 94060; 94726; 94729

== ENCOUNTER → 2025-03-14 | Outpatient (CLI) | payer OTHER, SELFPAY ==
--- NOTE | 2025-03-14 13:09 | EKG12_ITS ---
Test Reason : SOB ON EXERTION Blood Pressure : */* mmHG Vent. Rate : 67 BPM Atrial Rate : 67 BPM P-R Int : 158 ms QRS Dur : 94 ms QT Int : 416 ms P-R-T Axes : 48 -40 -9 degrees QTcB Int : 439 ms Normal sinus rhythm Possible Left atrial enlargement Left axis deviation Left ventricular hypertrophy Cannot rule out Septal infarct , age undetermined Abnormal ECG Confirmed by BRITT BARAJAS, TOÑO ([id number]), editor in chief IRMA HOFFMAN ([id number]) on 03/15/2025 9:03:25 AM Referred By: Caridad Edmondson Confirmed By: TOÑO DE LA TORRE MD
== END | disposition home or self-care (01) ==
LOC: PSN 13:06
PROVIDERS: PCP Family Medicine; Referring Provider Family Medicine; Visit Provider Family Medicine
DX: R06.09 Other forms of dyspnea (principal); I10 Essential (primary) hypertension
CPT/HCPCS: 93005

== ENCOUNTER → 2025-03-22 | Outpatient (CLI) | payer OTHER, SELFPAY ==
--- NOTE | 2025-03-22 13:42 | ECHOD_ITS ---
Reason For Study Reason For Study: [place] Procedure This was a 2D Doppler, Color Flow transthoracic echocardiogram. Myocardial strain analysis was performed in this exam to aid in the assessment of cardiac function. Exam performed in department. Left Ventricle Normal LV size. Mild concentric left ventricular hypertrophy. The global longitudinal strain = -18.7 % (normal). The left ventricular ejection fraction is 60 %. Stage 1 diastolic dysfunction. Right Ventricle Normal right ventricle. Atria The left and right atria are normal. Mitral Valve Trivial mitral valve insufficiency. Tricuspid Valve Mild (1+) tricuspid valve insufficiency. Normal pulmonary artery pressure. Aortic Valve Trisinus/trileaflet aortic valve. Mild (1+) aortic valve insufficiency. Pulmonic Valve Trivial pulmonic valve insufficiency. Great Vessels Normal sized aortic root. Pericardium/Pleural Small anterior pericardial effusion. MMode/2D Measurements & Calculations LVIDd: 4.3 cm IVSd: 1.2 cm LVOT diam: 2.2 cm LVIDs: 2.8 cm LVPWd: 0.95 cm LVOT area: 3.7 cm2 RVDd: 2.7 cm FS: 35.9 % Ao root diam: 3.5 cm asc Aorta Diam: 3.6 cm LAV(MOD- bp): 24.8 ml LAV(MOD- bp) Indexed: 14.5 ml/m2 LAV(MOD- sp2): 31.4 ml LAV(MOD- sp4): 18.8 ml SV(MOD- sp4): 37.3 ml LVAd ap4: 23.8 cm2 LVAd ap2: 22.2 cm2 LVLd ap4: 7.2 cm LVLd ap2: 7.3 cm SI(MOD- sp4): 21.8 ml/m2 EDV(MOD-sp4): 65.9 ml EDV(MOD-sp2): 57.5 ml EDV(sp4-el): 66.9 ml EDV(sp2-el): 57.2 ml LVAs ap4: 14.4 cm2 LVAs ap2: 12.5 cm2 LVLs ap4: 5.9 cm LVLs ap2: 6.4 cm ESV(MOD-sp4): 28.6 ml ESV(MOD-sp2): 20.7 ml ESV(sp4-el): 29.5 ml ESV(sp2-el): 20.7 ml EF(MOD-sp4): 56.6 % EF(MOD-sp2): 64.0 % EF(sp4-el): 55.9 % SV(MOD-sp2): 36.8 ml SV(sp4-el): 37.4 ml Ao sinus diam: 3.5 cm SI(MOD-sp2): 21.5 ml/m2 Ao ST Junction: 3.0 cm LA dimension(2D): 3.1 cm LA A4 area: 10.6 cm2 TAPSE: 1.7 cm RA A4 area: 9.8 cm2 Time Measurements MV dec time: 0.25 sec Doppler Measurements & Calculations MV E max jovanny: 58.6 cm/sec Lat Peak E' Jovanny: 7.3 cm/sec Med Peak E' Jovanny: 7.9 cm/sec MV A max jovanny: 85.9 cm/sec E/E' lat: 8.1 E/E' med: 7.4 MV E/A: 0.68 MV dec slope: 237.5 cm/sec2 Ao V2 max: 137.8 cm/sec AI max jovanny: 467.4 cm/sec Ao max P.6 mmHg AI max P.4 mmHg Ao V2 mean: 97.1 cm/sec AI dec slope: 185.3 cm/sec2 Ao mean P.2 mmHg AI P1/2t: 738.6 msec Ao V2 VTI: 29.9 cm AV (velocity ratio): 0.70 MARGARET(I,D): 2.6 cm2 MARGARET(V,D): 2.6 cm2 LV V1 max: 95.1 cm/sec SV(LVOT): 78.2 ml PA V2 max: 54.8 cm/sec LV V1 max P.6 mmHg LV V1 mean P.1 mmHg LV V1 mean: 69.1 cm/sec LV V1 VTI: 20.9 cm PI end-d jovanny: 87.6 cm/sec TR max jovanny: 226.4 cm/sec TR max P.5 mmHg ECHO/Echo Complete Interpretation Summary Mild concentric left ventricular hypertrophy. The left ventricular ejection fraction is 60 %. The global longitudinal strain = -18.7 % (normal). Stage 1 diastolic dysfunction. Mild (1+) tricuspid valve insufficiency. Mild (1+) aortic valve insufficiency. Small anterior pericardial effusion. Ordering Physician: Caridad Edmondson Referring Physician: Caridad Edmondson Performed By: Chely Ceja RDCS
== END | disposition home or self-care (01) ==
LOC: CVS 13:39
PROVIDERS: PCP Family Medicine; Referring Provider Family Medicine; Visit Provider Family Medicine
DX: R06.00 Dyspnea, unspecified (principal); I10 Essential (primary) hypertension
CPT/HCPCS: 93306

== ENCOUNTER → 2025-04-06 | Outpatient (CLI) | payer OTHER, SELFPAY ==
[2025-04-06 18:21] LABS: Pro- Brain NATRIURETIC PEPTIDE 156 pg/mL (<=900)
== END | disposition home or self-care (01) ==
LOC: LAB 15:54
PROVIDERS: PCP Family Medicine; Referring Provider Student in an Organized Health Care Education/Training Program; Visit Provider Student in an Organized Health Care Education/Training Program
DX: R06.09 Other forms of dyspnea (principal)
CPT/HCPCS: 36415; 83880